=== PATIENT | female | born 1960 | race Two or more races ===

== ENCOUNTER 2017-01-14 21:06 | Emergency (ER) | payer OTHER ==
[~2017-01-14] VITALS: Ht 147.3 cm; Wt 63.5 kg
[2017-01-14] MEDS ORDERED: LISINOPRIL10 MG ORAL (21:15)
[2017-01-14] MEDS ORDERED: ATORVASTATIN CA80 MG ORAL (21:15)
[2017-01-14] MEDS ORDERED: levETIRAcetam 500mg vial IV ONE (21:40)
[2017-01-14] MEDS ORDERED: levETIRAcetam 500 MG in D5W 110 ML IVPB ONE (21:45)
[2017-01-14 22:02] VITALS: BP 142/60
[2017-01-14 22:18] LABS: APPEARANCE,URINE CLEAR; BASOPHILS % (AUTO) 0.8 % (0.0-2.0); EOSINOPHILS % (AUTO) 3.1 % (0.0-3.0); KETONES,URINE NEGATIVE (NEGATIVE); LEUKOCYTE ESTERASE ,URINE 2+ (NEGATIVE); LYMPHOCYTES % (AUTO) 20.1 % (20.0-45.0); MEAN CORPUSCULAR VOLUME 91 FL (80-99); MEAN PLATELET VOLUME 5.5 FL (6.5-10.1); MONOCYTES % (AUTO) 4.4 % (1.0-10.0); NEUTROPHILS % (AUTO) 71.5 % (45.0-75.0); NITRITE,URINE NEGATIVE (NEGATIVE); PH,URINE 5 (4.5-8.0); PLATELET COUNT 333 K/UL (150-450); PROTEIN,URINE 2+ (NEGATIVE); RED BLOOD COUNT 3.94 M/UL (4.20-5.40); RED CELL DISTRIBUTION WIDTH 11.6 % (11.6-14.8); UROBILINOGEN,URINE NORMAL MG/DL (0.0-1.0); WHITE BLOOD COUNT 14.3 K/UL (4.8-10.8)
[2017-01-14 22:23] LABS: TROPONIN I < 0.30 ng/mL (<=0.30)
[2017-01-14 22:24] LABS: RBC,URINE 0-2 /HPF (0 - 2)
[2017-01-14 22:25] LABS: BACTERIA,URINE FEW /HPF; SQUAMOUS EPITHELIAL CELL,UR FEW /LPF (NONE/OCC)
[2017-01-14 22:26] LABS: ACETAMINOPHEN < 10 ug/mL (10-30); ALANINE AMINOTRANSFERASE 13 U/L (3-33); ALBUMIN/GLOBULIN RATIO 1.3 (1.0-2.7); ALCOHOL < 10 mg/dL; ANION GAP 20 (5-15); ASPARTATE AMINO TRANSFERASE 19 U/L (5-40); CALCIUM 9.5 mg/dL (8.6-10.2); CARBON DIOXIDE 25 mEQ/L (20-30); CHLORIDE 96 mEQ/L (98-107); CREATININE 0.9 mg/dL (0.5-0.9); GLOMERULAR FILTRATION RATE > 60 mL/min (>60); HEMOLYSIS 3; POTASSIUM 3.4 mEQ/L (3.4-4.9); SODIUM 141 mEQ/L (135-145); TOTAL PROTEIN 7.9 g/dL (6.6-8.7)
[2017-01-14 23:40] VITALS: BP 141/61
[2017-01-14 23:45] VITALS: BP 141/61
--- NOTE | 2017-01-15 04:47 | Emergency Room Report ---
History of Present Illness General Chief Complaint: Seizure Source: Patient, Family Member, Medical Record Present Illness HPI 56-year-old female presents to ED status post seizure. Daughter at bedside states that patient is seizure in bed. Witnessed by daughter. Lasted for approximately 1 minute and resolved. No falling or head injury. On arrival patient is post ictal, confused. Patient has history of seizures that Keppra. Daughter states that patient is not always compliant with her medication. Patient had a subarachnoid hemorrhage and has had seizures since. No fevers or chills. No chest pain or shortness of breath. No other aggravating factors. No other associated symptoms Allergies: Coded Allergies: No Known Allergies (Unverified , 01/14/17) Patient History Past Medical History: seizures Past Surgical History: other - SAH Pertinent Family History: none Social History: Denies: alcohol use, drug use, smoking Last Menstrual Period: n/a Now: No Immunizations: UTD Reviewed Nursing Documentation: PMH: Agreed, PSxH: Agreed Nursing Documentation-PMH Past Medical History: No History, Except For Hx Neurological Problems: Yes - Subarachnoid hemorrhage Hx Seizures: Yes Review of Systems All Other Systems: negative except mentioned in HPI Physical Exam Vital Signs Date Time Temp Pulse Resp B/P Pulse Ox O2 Delivery O2 Flow Rate FiO2 01/14/17 21:02 98 20 148/70 88 Room Air 01/14/17 22:02 98.6 Sp02 EP Interpretation: reviewed, normal General Appearance: no apparent distress, alert, GCS 15, non-toxic Head: normocephalic, atraumatic Eyes: bilateral eye PERRL, bilateral eye normal inspection ENT: hearing grossly normal, normal pharynx, no angioedema, normal voice Neck: full range of motion, supple/symm/no masses Respiratory: chest non-tender, lungs clear, normal breath sounds, speaking full sentences Cardiovascular #1: regular rate, rhythm, no edema Cardiovascular #2: 2+ carotid (R), 2+ carotid (L), 2+ radial (R), 2+ radial (L) , 2+ dorsalis pedis (R), 2+ dorsalis pedis (L) Gastrointestinal: normal bowel sounds, non tender, soft, non-distended, no guarding, no rebound Rectal: deferred Genitourinary: normal inspection, no CVA tenderness Musculoskeletal: back normal, gait/station normal, normal range of motion, non- tender Neurologic: alert, oriented x3, responsive, motor strength/tone normal, sensory intact, speech normal Psychiatric: judgement/insight normal, memory normal, mood/affect normal, no suicidal/homicidal ideation Reflexes: 3+ bicep (R), 3+ bicep (L), 3+ tricep (R), 3+ tricep (L), 3+ knee (R) , 3+ knee (L) Skin: normal color, no rash, warm/dry, well hydrated Lymphatic: no adenopathy Medical Decision Making Diagnostic Impression: Primary Impression: Seizure disorder ER Course Hospital Course 56-year-old F presents to ED status post seizure. Differential diagnosis includes- breakthrough seizure, alcohol abuse, noncompliance with medication Clinical course Patient placed on stretcher. Initial history and physical I ordered labs, IV fluids, Keppra Labs-electrolytes okay, no leukocytosis, hemoglobin/hematocrit stable. Tox negative EKG-normal sinus rhythm, LVH Patient allowed to rest is now awake alert oriented x3. ambulating without difficulty. Family is at bedside and can take patient home. Encouraged importance of medication compliance Diagnosis - seizure disorder stable and discharged to home. Followup with PMD. Return to ED if symptoms recur or worsen Labs Test 01/14/17 21:50 White Blood Count 14.3 K/UL (4.8-10.8) Red Blood Count 3.94 M/UL (4.20-5.40) Hemoglobin 12.6 G/DL (12.0-16.0) Hematocrit 36.0 % (37.0-47.0) Mean Corpuscular Volume 91 FL (80-99) Mean Corpuscular Hemoglobin 32.0 PG (27.0-31.0) Mean Corpuscular Hemoglobin Concent 35.0 G/DL (32.0-36.0) Red Cell Distribution Width 11.6 % (11.6-14.8) Platelet Count 333 K/UL (150-450) Mean Platelet Volume 5.5 FL (6.5-10.1) Neutrophils (%) (Auto) 71.5 % (45.0-75.0) Lymphocytes (%) (Auto) 20.1 % (20.0-45.0) Monocytes (%) (Auto) 4.4 % (1.0-10.0) Eosinophils (%) (Auto) 3.1 % (0.0-3.0) Basophils (%) (Auto) 0.8 % (0.0-2.0) Urine Color Pale yellow Urine Appearance Clear Urine pH 5 (4.5-8.0) Urine Specific [place] 1.020 (1.005-1.035) Urine Protein 2+ (NEGATIVE) Urine Glucose (UA) Negative (NEGATIVE) Urine Ketones Negative (NEGATIVE) Urine Occult Blood Negative (NEGATIVE) Urine Nitrite Negative (NEGATIVE) Urine Bilirubin Negative (NEGATIVE) Urine Urobilinogen Normal MG/DL (0.0-1.0) Urine Leukocyte Esterase 2+ (NEGATIVE) Urine RBC 0-2 /HPF (0 - 2) Urine WBC 2-4 /HPF (0 - 2) Urine Squamous Epithelial Cells Few /LPF (NONE/OCC) Urine Bacteria Few /HPF (NONE) Sodium Level 141 mEQ/L (135-145) Potassium Level 3.4 mEQ/L (3.4-4.9) Chloride Level 96 mEQ/L (98-107) Carbon Dioxide Level 25 mEQ/L (20-30) Anion Gap 20 (5-15) Blood Urea Nitrogen 25 mg/dL (7-23) Creatinine 0.9 mg/dL (0.5-0.9) Estimat Glomerular Filtration Rate > 60 mL/min (>60) Glucose Level 162 mg/dL (74-106) Calcium Level 9.5 mg/dL (8.6-10.2) Total Bilirubin < 0.2 mg/dL (0.0-1.2) Aspartate Amino Transf (AST/SGOT) 19 U/L (5-40) Alanine Aminotransferase (ALT/SGPT) 13 U/L (3-33) Alkaline Phosphatase 135 U/L (35-104) Troponin I < 0.30 ng/mL (<=0.30) Total Protein 7.9 g/dL (6.6-8.7) Albumin 4.5 g/dL (3.5-5.2) Globulin 3.4 g/dL Albumin/Globulin Ratio 1.3 (1.0-2.7) Salicylates Level < 1 mg/dL (10-30) Acetaminophen Level < 10 ug/mL (10-30) Serum Alcohol < 10 mg/dL EKG Diagnostic Results Rate: normal Rhythm: NSR, other - LVH ST Segments: no acute changes ASA given to the pt in ED: No Rhythm Strip Diag. Results EP Interpretation: yes Rhythm: NSR, no PVC's, no ectopy Last Vital Signs Date Time Temp Pulse Resp B/P Pulse Ox O2 Delivery O2 Flow Rate FiO2 01/14/17 23:45 98.6 94 19 141/61 97 Room Air Status: improved Disposition: HOME, SELF-CARE Condition: Stable Referrals: [facility],REFERRING (PCP) Patient Instructions: Seizure, Adult IVONNE BLOCK M.D. January 15, 2017 04:47
--- NOTE | 2017-01-15 18:34 | Cardiology Report ---
APPROVED REPORT EKG Measurement Heart [id number] Normal sinus rhythm Possible Left atrial enlargement Left ventricular hypertrophy with repolarization abnormality Prolonged QT Abnormal ECG
== END 2017-01-14 23:45 | disposition home or self-care (01) ==
LOC: EDBD 21:06 → EMR 21:24
DX: G40.909 Epilepsy, unspecified, not intractable, without status epilepticus (principal)
CPT/HCPCS: 36415; 80053; 80329; 81003; 82962; 84484; 85025; 93005; 96374; 96375; 99284; J1953

== ENCOUNTER 2017-09-26 19:12 | Inpatient (IN) | payer OTHER ==
[~2017-09-26] VITALS: Ht 152.4 cm; Wt 62.6 kg
[~2017-09-26 19:12] MED LIST: ATORVASTATIN CA80 MG ORAL; LISINOPRIL10 MG ORAL
[2017-09-26 19:18] VITALS: BP 188/74
[2017-09-26] MEDS ORDERED: levETIRAcetam 500mg/NS100ml 100 ML IVPB ONE (19:45)
[2017-09-26] MEDS ORDERED: Albuterol ud Inhalation HHN ONE (19:45)
[2017-09-26 19:48] LABS: BASOPHILS % (AUTO) 0.6 % (0.0-2.0); EOSINOPHILS % (AUTO) 2.1 % (0.0-3.0); HEMATOCRIT 42.4 % (37.0-47.0); HEMOGLOBIN 13.8 G/DL (12.0-16.0); LYMPHOCYTES % (AUTO) 44.5 % (20.0-45.0); MEAN CORPUSCULAR VOLUME 95 FL (80-99); MONOCYTES % (AUTO) 8.6 % (1.0-10.0); NEUTROPHILS % (AUTO) 44.2 % (45.0-75.0); PLATELET COUNT 397 K/UL (150-450); RED BLOOD COUNT 4.47 M/UL (4.20-5.40); RED CELL DISTRIBUTION WIDTH 11.6 % (11.6-14.8); WHITE BLOOD COUNT 21.7 K/UL (4.8-10.8)
[2017-09-26] MEDS ORDERED: LORazepam Inj 2mg/ml 1ml ONE ×2 (19:56→20:46)
[2017-09-26 20:02] LABS: ANION GAP 22 mmol/L (5-15); BLOOD UREA NITROGEN 27 mg/dL (7-18); CALCIUM 9.7 MG/DL (8.5-10.1); CARBON DIOXIDE 18 MMOL/L (21-32); CHLORIDE 105 MMOL/L (98-107); CREATININE 1.6 MG/DL (0.55-1.30); SODIUM 145 MMOL/L (136-145)
[2017-09-26 20:07] LABS: ALANINE AMINOTRANSFERASE 30 U/L (12-78); ALBUMIN 3.8 G/DL (3.4-5.0); ALBUMIN/GLOBULIN RATIO 0.8 (1.0-2.7); ALKALINE PHOSPHATASE 128 U/L (46-116); ASPARTATE AMINO TRANSFERASE 31 U/L (15-37); BILIRUBIN,TOTAL 0.2 MG/DL (0.2-1.0); CREATINE KINASE 68 U/L (26-308)
[2017-09-26] MEDS ORDERED: LORazepam Inj 2mg/ml 1ml IV ONE ×2 (20:30→20:45)
[2017-09-26] MEDS ORDERED: KEPPRA750 MG ORAL ×2 (20:54)
[2017-09-26 20:58] VITALS: BP 140/76
[2017-09-26 21:55] VITALS: BP 112/59
[2017-09-26] MEDS ORDERED: Albuterol/Ipratropium 3ml neb HHN PRN (22:45)
[2017-09-26] MEDS ORDERED: Nitroglycerin Subl 0.4mg tab SL PRN (22:45)
[2017-09-26] MEDS ORDERED: Morphine Sulfate 4mg/ml Inj IVP PRN (22:45)
[2017-09-26 23:03] VITALS: BP 118/56
--- NOTE | 2017-09-26 23:24 | Emergency Room Report ---
History of Present Illness General Chief Complaint: Dyspnea/Respdistress Source: Family Member, Medical Record, EMS Present Illness HPI This patient is brought in by EMS for altered mental status. Apparently the patient has a history of a seizure disorder and they were called by the patient' s daughter that she was found on the floor altered. There is no other history available. The patient was unable to give history secondary to her mental status. Allergies: Coded Allergies: No Known Allergies (Unverified , 01/14/17) Patient History Past Medical History: see triage record, DM, HTN, GERD, seizures Past Surgical History: unable to obtain Pertinent Family History: unable to obtain Social History: Denies: smoking, alcohol use, drug use Reviewed Nursing Documentation: PMH: Agreed, PSxH: Agreed Nursing Documentation-PMH Past Medical History: No History, Except For Hx Hypertension: Yes Hx Diabetes: Yes Hx Neurological Problems: Yes - Subarachnoid hemorrhage Hx Seizures: Yes Review of Systems All Other Systems: negative except mentioned in HPI Physical Exam Vital Signs Date Time Temp Pulse Resp B/P (MAP) Pulse Ox O2 Delivery O2 Flow Rate FiO2 09/26/17 19:03 98.1 113 20 188/74 99 Non-Rebreather 15.0 09/26/17 21:06 30 Sp02 EP Interpretation: reviewed, abnormal General Appearance: lethargic Head: normocephalic, atraumatic Eyes: bilateral eye normal inspection, bilateral eye PERRL ENT: normal pharynx, no angioedema Neck: full range of motion, supple/symm/no masses Respiratory: rales, rhonchi Cardiovascular #1: no edema, tachycardia Gastrointestinal: soft, non-distended, no guarding, no rebound Rectal: deferred Musculoskeletal: normal inspection, normal range of motion Neurologic: other - Localizes to pain, non-focal Skin: normal color, no rash, warm/dry, well hydrated Procedures Intubation Intubation : Consent: Emergent Intubation Method: orotracheal Tube Size (cm): 7.0 Medications: Etomidate, Succinylcholine Breath Sounds after Intubation: right greater than left Intubation Complications: no complications Post Intubation Xray: Yes Progress/Xray Impression: Slightly in R. mainstem bronchus Attempts: One Patient Tolerated: Well Complications: None Medical Decision Making Diagnostic Impression: Primary Impression: Seizure disorder Additional Impressions: Pulmonary edema Elevated troponin Renal failure Respiratory failure ER Course This patient presented with uncontrolled seizures. She is also hypoxemic and minimally responsive. Chest x-ray showed diffuse pulmonary edema. The patient then continued to have recurrent seizures and I was concerned with her mental status and pulmonary edema that she would lose her airway. Therefore, I felt that I should intubate this patient to get control of her airway. She underwent rapid sequence intubation without complication or incident. The initial chest x-ray showed the endotracheal tube slightly in the right mainstem bronchus. The ET tube was pulled back 2 cm. Patient also had an elevated troponin. She also has an elevated creatinine that I am unsure of the chronicity of. Possibly this patient had an and STEMI and pulmonary edema and then developed a seizure. I am unsure of the sequence of conditions. Regardless, the patient was given antiseizure medications, intubated and admitted to the ICU. This patient is critically ill. This patient required complex medical decision- making, aggressive intervention, extensive laboratory workup and monitoring. Critical care time: 40 minutes. Laboratory Tests Test 09/26/17 19:20 White Blood Count 21.7 K/UL (4.8-10.8) H Red Blood Count 4.47 M/UL (4.20-5.40) Hemoglobin 13.8 G/DL (12.0-16.0) Hematocrit 42.4 % (37.0-47.0) Mean Corpuscular Volume 95 FL (80-99) Mean Corpuscular Hemoglobin 30.8 PG (27.0-31.0) Mean Corpuscular Hemoglobin Concent 32.5 G/DL (32.0-36.0) Red Cell Distribution Width 11.6 % (11.6-14.8) Platelet Count 397 K/UL (150-450) Mean Platelet Volume 5.2 FL (6.5-10.1) L Neutrophils (%) (Auto) 44.2 % (45.0-75.0) L Lymphocytes (%) (Auto) 44.5 % (20.0-45.0) Monocytes (%) (Auto) 8.6 % (1.0-10.0) Eosinophils (%) (Auto) 2.1 % (0.0-3.0) Basophils (%) (Auto) 0.6 % (0.0-2.0) Sodium Level 145 MMOL/L (136-145) Potassium Level 4.0 MMOL/L (3.5-5.1) Chloride Level 105 MMOL/L (98-107) Carbon Dioxide Level 18 MMOL/L (21-32) L Anion Gap 22 mmol/L (5-15) H Blood Urea Nitrogen 27 mg/dL (7-18) H Creatinine 1.6 MG/DL (0.55-1.30) H Estimate Glomerular Filtration Rate 33.2 mL/min (>60) Glucose Level 244 MG/DL (74-106) H Calcium Level 9.7 MG/DL (8.5-10.1) Total Bilirubin 0.2 MG/DL (0.2-1.0) Aspartate Amino Transferase (AST) 31 U/L (15-37) Alanine Aminotransferase (ALT) 30 U/L (12-78) Alkaline Phosphatase 128 U/L (46-116) H Total Creatine Kinase 68 U/L (26-308) Troponin I 0.169 ng/mL (0.000-0.056) Total Protein 8.6 G/DL (6.4-8.2) H Albumin 3.8 G/DL (3.4-5.0) Globulin 4.8 g/dL Albumin/Globulin Ratio 0.8 (1.0-2.7) L Serum Alcohol < 3 mg/dL EKG Diagnostic Results Rate: tachycardiac Rhythm: other - S.tachycardia ST Segments: no acute changes Rhythm Strip Diag. Results EP Interpretation: yes Rate: 110's Rhythm: no PVC's, no ectopy, other Other Impression S.tachycardia Chest X-Ray Diagnostic Results Chest X-Ray Diagnostic Results : Chest X-Ray Ordered: Yes # of Views/Limited/Complete: 1 View Indication: Shortness of Breath EP Interpretation: Yes Interpretation: no pneumothorax, other Impression: Other - Diffuse patchy opacities c/w pulmonary edema. Last Vital Signs Date Time Temp Pulse Resp B/P (MAP) Pulse Ox O2 Delivery O2 Flow Rate FiO2 09/26/17 23:03 71 14 118/56 100 Mechanical Ventilator 09/26/17 21:06 30 09/26/17 19:18 15.0 09/26/17 19:18 98.1 Disposition: ADMITTED INPATIENT Condition: Critical Referrals: [facility],REFERRING (PCP) DEONTE RAMOS D.O. Sep 26, 2017 23:24
[2017-09-27] VITALS (24 sets, daily range): BP systolic 85–136; BP diastolic 34–67
[2017-09-27 02:32] LABS: APPEARANCE,URINE CLEAR; COLOR,URINE YELLOW
[2017-09-27 02:33] LABS: BILIRUBIN, URINE NEGATIVE (NEGATIVE); GLUCOSE, URINE (UA) NEGATIVE (NEGATIVE); KETONES,URINE NEGATIVE (NEGATIVE); LEUKOCYTE ESTERASE ,URINE NEGATIVE (NEGATIVE); NITRITE,URINE NEGATIVE (NEGATIVE); PH,URINE 5 (4.5-8.0); PROTEIN,URINE NEGATIVE (NEGATIVE); UROBILINOGEN,URINE NORMAL MG/DL (0.0-1.0)
[2017-09-27 02:35] LABS: APPEARANCE,URINE CLEAR; COLOR,URINE YELLOW; PH,URINE 5 (4.5-8.0)
[2017-09-27 02:36] LABS: BILIRUBIN, URINE NEGATIVE (NEGATIVE); GLUCOSE, URINE (UA) NEGATIVE (NEGATIVE); KETONES,URINE NEGATIVE (NEGATIVE); LEUKOCYTE ESTERASE ,URINE NEGATIVE (NEGATIVE); NITRITE,URINE NEGATIVE (NEGATIVE); PROTEIN,URINE NEGATIVE (NEGATIVE); UROBILINOGEN,URINE NORMAL MG/DL (0.0-1.0)
[2017-09-27] MEDS: D5 1/2NS 1,000 ML IV SCH ×2 (03:42→12:01)
[2017-09-27 07:06] LABS: CREATINE KINASE 93 U/L (26-308)
[2017-09-27 07:09] LABS: ALANINE AMINOTRANSFERASE 28 U/L (12-78); ALBUMIN 2.9 G/DL (3.4-5.0); ALKALINE PHOSPHATASE 79 U/L (46-116); ASPARTATE AMINO TRANSFERASE 31 U/L (15-37); BILIRUBIN,DIRECT < 0.1 MG/DL (0.0-0.3); BILIRUBIN,TOTAL 0.5 MG/DL (0.2-1.0); LACTATE DEHYDROGENASE 264 U/L (81-234); PHOSPHORUS 2.2 MG/DL (2.5-4.9)
[2017-09-27] MEDS: Heparin 5000 units/ml inj SUBQ SCH ×2 (09:00→20:49)
--- NOTE | 2017-09-27 10:39 | Neurology Progress Note ---
Objective Physical Exam Last Vital Signs Date Time Temp Pulse Resp B/P (MAP) Pulse Ox O2 Delivery O2 Flow Rate FiO2 09/27/17 10:00 70 18 136/51 100 Mechanical Ventilator 30 09/27/17 08:00 98.5 09/27/17 03:00 Laboratory Tests Test 09/26/17 19:20 09/26/17 21:21 09/27/17 06:15 White Blood Count 21.7 K/UL (4.8-10.8) H Red Blood Count 4.47 M/UL (4.20-5.40) Hemoglobin 13.8 G/DL (12.0-16.0) Hematocrit 42.4 % (37.0-47.0) Mean Corpuscular Volume 95 FL (80-99) Mean Corpuscular Hemoglobin 30.8 PG (27.0-31.0) Mean Corpuscular Hemoglobin Concent 32.5 G/DL (32.0-36.0) Red Cell Distribution Width 11.6 % (11.6-14.8) Platelet Count 397 K/UL (150-450) Mean Platelet Volume 5.2 FL (6.5-10.1) L Neutrophils (%) (Auto) 44.2 % (45.0-75.0) L Lymphocytes (%) (Auto) 44.5 % (20.0-45.0) Monocytes (%) (Auto) 8.6 % (1.0-10.0) Eosinophils (%) (Auto) 2.1 % (0.0-3.0) Basophils (%) (Auto) 0.6 % (0.0-2.0) Sodium Level 145 MMOL/L (136-145) Potassium Level 4.0 MMOL/L (3.5-5.1) Chloride Level 105 MMOL/L (98-107) Carbon Dioxide Level 18 MMOL/L (21-32) L Anion Gap 22 mmol/L (5-15) H Blood Urea Nitrogen 27 mg/dL (7-18) H Creatinine 1.6 MG/DL (0.55-1.30) H Estimat Glomerular Filtration Rate 33.2 mL/min (>60) Glucose Level 244 MG/DL (74-106) H Calcium Level 9.7 MG/DL (8.5-10.1) Total Bilirubin 0.2 MG/DL (0.2-1.0) 0.5 MG/DL (0.2-1.0) Aspartate Amino Transf (AST/SGOT) 31 U/L (15-37) 31 U/L (15-37) Alanine Aminotransferase (ALT/SGPT) 30 U/L (12-78) 28 U/L (12-78) Alkaline Phosphatase 128 U/L (46-116) H 79 U/L (46-116) Total Creatine Kinase 68 U/L (26-308) 93 U/L (26-308) Troponin I 0.169 ng/mL (0.000-0.056) Total Protein 8.6 G/DL (6.4-8.2) H 6.3 G/DL (6.4-8.2) L Albumin 3.8 G/DL (3.4-5.0) 2.9 G/DL (3.4-5.0) L Globulin 4.8 g/dL Albumin/Globulin Ratio 0.8 (1.0-2.7) L Serum Alcohol < 3 mg/dL Urine Color Yellow Urine Appearance Clear Urine pH 5 (4.5-8.0) Urine Specific [place] 1.020 (1.005-1.035) Urine Protein Negative (NEGATIVE) Urine Glucose (UA) Negative (NEGATIVE) Urine Ketones Negative (NEGATIVE) Urine Occult Blood Negative (NEGATIVE) Urine Nitrite Negative (NEGATIVE) Urine Bilirubin Negative (NEGATIVE) Urine Urobilinogen Normal MG/DL (0.0-1.0) Urine Leukocyte Esterase Negative (NEGATIVE) Urine RBC 0-2 /HPF (0 - 2) Urine WBC 0-2 /HPF (0 - 2) Urine Squamous Epithelial Cells Few /LPF (NONE/OCC) Urine Bacteria Few /HPF (NONE) Urine Eosinophils None seen Urine Random Sodium 20 MEQ/L (20-110) Urine Potassium Timed 130 mmol/L (12-62) H Prothrombin Time 10.0 SEC (9.30-11.50) Prothromb Time International Ratio 1.0 (0.9-1.1) Activated Partial Thromboplast Time 26 SEC (23-33) Uric Acid 6.0 MG/DL (2.6-7.2) Phosphorus Level 2.2 MG/DL (2.5-4.9) L Direct Bilirubin < 0.1 MG/DL (0.0-0.3) Lactate Dehydrogenase 264 U/L (81-234) H Triglycerides Level 172 MG/DL (30-150) H Impression/Recommendations Recommendations #[id number] RON HOLLIS Sep 27, 2017 10:39
[2017-09-27 10:54] LABS: BASOPHILS % (AUTO) 0.5 % (0.0-2.0); HEMATOCRIT 30.8 % (37.0-47.0); HEMOGLOBIN 10.3 G/DL (12.0-16.0); LYMPHOCYTES % (AUTO) 23.6 % (20.0-45.0); MEAN CORPUSCULAR VOLUME 92 FL (80-99); MONOCYTES % (AUTO) 8.4 % (1.0-10.0); NEUTROPHILS % (AUTO) 66.6 % (45.0-75.0); PLATELET COUNT 278 K/UL (150-450); RED BLOOD COUNT 3.36 M/UL (4.20-5.40); RED CELL DISTRIBUTION WIDTH 11.3 % (11.6-14.8); WHITE BLOOD COUNT 10.5 K/UL (4.8-10.8)
[2017-09-27] MEDS ORDERED: levETIRAcetam 1,000mg/NS100ml 100 ML IVPB SCH (11:30)
[2017-09-27] MEDS: NS IV SCH ×2 (11:45→20:46)
[2017-09-27] MEDS: LEVETIRACETAM IV SCH ×2 (11:45→20:46)
--- NOTE | 2017-09-27 12:04 | Pulmonolgy Critical Care Note ---
Critical Care - Asmt/Plan Problems: (1) Seizure disorder (2) Respiratory failure (3) Renal failure Respiratory: monitor respiratory rate, adjust FIO2, CXR Cardiac: continue to monitor HR/BP Infectious Disease: check cultures Gastrointestinal: start feedings Endocrine: monitor blood sugar Hematologic: monitor H/H Neurologic: PRN Ativan, PRN Morphine Prophylaxis: Heparin Disposition: keep in ICU Discussed with: nurses, consultants, high risk case managermanager program management - Objective Last 24 Hour Vital Signs Date Time Temp Pulse Resp B/P (MAP) Pulse Ox O2 Delivery O2 Flow Rate FiO2 09/27/17 11:00 72 18 109/45 100 Mechanical Ventilator 30 09/27/17 10:37 63 18 30 09/27/17 10:00 70 18 136/51 100 Mechanical Ventilator 30 09/27/17 09:00 57 16 110/41 100 Mechanical Ventilator 30 09/27/17 08:51 60 16 30 09/27/17 08:00 98.5 66 18 116/46 100 Mechanical Ventilator 30 09/27/17 08:00 70 09/27/17 08:00 30 09/27/17 07:00 59 16 112/41 100 Mechanical Ventilator 30 09/27/17 06:55 55 16 30 09/27/17 06:00 65 16 101/67 100 Mechanical Ventilator 30 09/27/17 05:20 62 16 30 09/27/17 05:00 66 16 85/34 100 Mechanical Ventilator 30 09/27/17 04:00 30 09/27/17 04:00 63 09/27/17 04:00 59 16 89/36 100 Mechanical Ventilator 30 09/27/17 03:30 110 16 30 09/27/17 03:00 97.6 60 20 116/42 99 Mechanical Ventilator 30 09/27/17 02:50 98.1 61 16 96/45 100 Mechanical Ventilator 15.0 30 18 02:37 61 16 96/45 100 Mechanical Ventilator 09/27/17 01:29 106 16 30 09/27/17 01:29 16 18 01:20 63 16 102/45 100 Mechanical Ventilator 18 01:12 15.0 30 09/27/17 00:16 66 14 102/49 100 Mechanical Ventilator 09/26/17 23:30 108 14 30 09/26/17 23:03 71 14 118/56 100 Mechanical Ventilator 09/26/17 22:03 16 09/26/17 21:55 89 16 112/59 99 Mechanical Ventilator 09/26/17 21:06 103 19 30 09/26/17 20:58 100 24 140/76 97 Mechanical Ventilator 09/26/17 19:18 113 20 Non-Rebreather 15.0 09/26/17 19:18 98.1 113 20 188/74 99 Non-Rebreather 15.0 09/26/17 19:03 98.1 113 20 188/74 99 Non-Rebreather 15.0 Status: awake Condition: critical HEENT: atraumatic Lungs: clear Heart: HR/BP stable, HR/BP unstable Abdomen: soft, non-tender Extremities: no C/C/E, edema Accucheck: 109 Critical Care - Subjective ROS Limited/Unobtainable: Yes ICU Day: 1 Intubation Day: 1 Condition: critical EKG Rhythm: Sinus Rhythm FI02: 30 Vent Support Breath Rate: 16 Vent Support Mode: AC Vent Tidal Volume: 600 Sputum Amount: Small PEEP: 5.0 PIP: 42 Fluids: d5 08/27 NS I&O: Intake and Output 09/26/17 09/27/17 19:00 07:00 Intake Total 244 ml Output Total 235 ml Balance 9 ml Intake Oral 0 ml IV Total 244 ml Output Urine Total 235 ml # Voids 1 CXR: increased interstitial marking ET-Tube: 7.0 ET Position: 21 Labs: Laboratory Tests Test 09/26/17 19:20 09/26/17 21:21 09/27/17 06:15 09/27/17 09:50 White Blood Count 21.7 K/UL (4.8-10.8) H 10.5 K/UL (4.8-10.8) # Red Blood Count 4.47 M/UL (4.20-5.40) 3.36 M/UL (4.20-5.40) L Hemoglobin 13.8 G/DL (12.0-16.0) 10.3 G/DL (12.0-16.0) L Hematocrit 42.4 % (37.0-47.0) 30.8 % (37.0-47.0) L Mean Corpuscular Volume 95 FL (80-99) 92 FL (80-99) Mean Corpuscular Hemoglobin 30.8 PG (27.0-31.0) 30.6 PG (27.0-31.0) Mean Corpuscular Hemoglobin Concent 32.5 G/DL (32.0-36.0) 33.4 G/DL (32.0-36.0) Red Cell Distribution Width 11.6 % (11.6-14.8) 11.3 % (11.6-14.8) L Platelet Count 397 K/UL (150-450) 278 K/UL (150-450) Mean Platelet Volume 5.2 FL (6.5-10.1) L 5.3 FL (6.5-10.1) L Neutrophils (%) (Auto) 44.2 % (45.0-75.0) L 66.6 % (45.0-75.0) Lymphocytes (%) (Auto) 44.5 % (20.0-45.0) 23.6 % (20.0-45.0) Monocytes (%) (Auto) 8.6 % (1.0-10.0) 8.4 % (1.0-10.0) Eosinophils (%) (Auto) 2.1 % (0.0-3.0) 1.0 % (0.0-3.0) Basophils (%) (Auto) 0.6 % (0.0-2.0) 0.5 % (0.0-2.0) Sodium Level 145 MMOL/L (136-145) Potassium Level 4.0 MMOL/L (3.5-5.1) Chloride Level 105 MMOL/L (98-107) Carbon Dioxide Level 18 MMOL/L (21-32) L Anion Gap 22 mmol/L (5-15) H Blood Urea Nitrogen 27 mg/dL (7-18) H Creatinine 1.6 MG/DL (0.55-1.30) H Estimat Glomerular Filtration Rate 33.2 mL/min (>60) Glucose Level 244 MG/DL (74-106) H Calcium Level 9.7 MG/DL (8.5-10.1) Total Bilirubin 0.2 MG/DL (0.2-1.0) 0.5 MG/DL (0.2-1.0) Aspartate Amino Transf (AST/SGOT) 31 U/L (15-37) 31 U/L (15-37) Alanine Aminotransferase (ALT/SGPT) 30 U/L (12-78) 28 U/L (12-78) Alkaline Phosphatase 128 U/L (46-116) H 79 U/L (46-116) Total Creatine Kinase 68 U/L (26-308) 93 U/L (26-308) Troponin I 0.169 ng/mL (0.000-0.056) Total Protein 8.6 G/DL (6.4-8.2) H 6.3 G/DL (6.4-8.2) L Albumin 3.8 G/DL (3.4-5.0) 2.9 G/DL (3.4-5.0) L Globulin 4.8 g/dL Albumin/Globulin Ratio 0.8 (1.0-2.7) L Serum Alcohol < 3 mg/dL Urine Color Yellow Urine Appearance Clear Urine pH 5 (4.5-8.0) Urine Specific [place] 1.020 (1.005-1.035) Urine Protein Negative (NEGATIVE) Urine Glucose (UA) Negative (NEGATIVE) Urine Ketones Negative (NEGATIVE) Urine Occult Blood Negative (NEGATIVE) Urine Nitrite Negative (NEGATIVE) Urine Bilirubin Negative (NEGATIVE) Urine Urobilinogen Normal MG/DL (0.0-1.0) Urine Leukocyte Esterase Negative (NEGATIVE) Urine RBC 0-2 /HPF (0 - 2) Urine WBC 0-2 /HPF (0 - 2) Urine Squamous Epithelial Cells Few /LPF (NONE/OCC) Urine Bacteria Few /HPF (NONE) Urine Eosinophils None seen Urine Random Sodium 20 MEQ/L (20-110) Urine Potassium Timed 130 mmol/L (12-62) H Prothrombin Time 10.0 SEC (9.30-11.50) Prothromb Time International Ratio 1.0 (0.9-1.1) Activated Partial Thromboplast Time 26 SEC (23-33) Uric Acid 6.0 MG/DL (2.6-7.2) Phosphorus Level 2.2 MG/DL (2.5-4.9) L Direct Bilirubin < 0.1 MG/DL (0.0-0.3) Lactate Dehydrogenase 264 U/L (81-234) H Triglycerides Level 172 MG/DL (30-150) H FARRUKH VALDEZ Sep 27, 2017 12:04
[2017-09-27] MEDS: NovoLOG Insulin Flexpen SUBQ SCH ×3 (13:29→23:41)
--- NOTE | 2017-09-27 14:16 | Diagnostic Imaging Report ---
Indication: Altered mental status Technique: Contiguous 5 mm thick transaxial imaging of the head obtained in a Siemens Sensation [address] scanner. Soft tissue and bone windows generated. Automatic Exposure Control was utilized. 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 Left frontal encephalomalacia and overlying craniotomy noted. No definite mass effect, edema or acute hemorrhage seen. IMPRESSION: No mass effect acute hemorrhage or edema. 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 Left frontal/temporal encephalomalacia and craniotomy The CT scanner at [facility] is accredited by the [employer] and the scans are performed using dose optimization techniques as appropriate to a performed exam including Automatic Exposure control.
--- NOTE | 2017-09-27 14:17 | Diagnostic Imaging Report ---
Indication: Intubation Comparison: None A single view chest radiograph was obtained. Findings: Endotracheal tube is in the right mainstem bronchus. NG tube is present. The tip is in the stomach. The proximal port is in the esophagus. Tube should be advanced. Interstitial opacities are present nonspecific. The heart is mildly enlarged. Bones are osteopenic. IMPRESSION: Right mainstem intubation. High riding nasogastric tube should be advanced further. Interstitial disease nonspecific. Pneumonitis or CHF not excluded. Follow-up and clinical correlation recommended
[2017-09-27] MEDS: LORazepam Inj 2mg/ml 1ml IV PRN ×2 (15:16→22:03)
[2017-09-27] MEDS ORDERED: NovoLOG Insulin Flexpen SUBQ SCH (16:30)
--- NOTE | 2017-09-27 17:04 | Diagnostic Imaging Report ---
Indication: NG tube position Comparison: None Single view of the abdomen obtained Findings: NG tube is in good position. IMPRESSION: NG tube in good position
--- NOTE | 2017-09-27 18:43 | History & Physical ---
History and Physical History & Physicial Dictated for Int Med-Dr Catherine no. [id number] ANDREW CELESTE Sep 27, 2017 18:43
[2017-09-27] MEDS: Sodium Phosphate 20 MM in NS 275 ML IVPB SCH (20:46)
[2017-09-27] MEDS: Pantoprazole Inj IVP SCH (20:47)
[2017-09-27] MEDS ORDERED: levETIRAcetam 500mg/NS100ml 100 ML IVPB ONE (21:00)
--- NOTE | 2017-09-27 21:15 | Consultation ---
DATE OF CONSULTATION: 09/27/2017 NEUROLOGICAL CONSULTATION REQUESTING PHYSICIAN: Christian Catherine M.D. HISTORY OF PRESENT ILLNESS: The patient is a 57-year-old female, seen in neurological consultation to evaluate the exacerbation of chronic seizure disorder. The patient known to have a ruptured aneurysm with subarachnoid bleed in 2016 required craniotomy following which she developed a chronic seizure disorder. She was maintained on Keppra and yesterday she was reported to found on the ground, currently confused and disoriented following a seizure episode. It is not clear how many seizures she had at that time. She was brought to emergency room where she was observed another two episodes of generalized seizures. The patient was intubated. Her initial laboratory studies included CBC study with WBC of 21.7. Normal coagulation. Normal urinalysis. Toxicology panel negative and chemistry panel with BUN of 22, creatinine 1.6, and blood sugar 244. Troponin 0.169. LDH 264. EKG revealed no PVC. No ectopies. Sinus tachycardia noted. Chest x-ray with diffuse patchy opacities consistent with pulmonary edema. She was described as being hypoxemic and minimally responsive. MEDICATIONS: Her treatment included use of IV Keppra 500 mg, normal saline, propofol sedation, albuterol, subcutaneous heparin, lorazepam 2 mg q.2 h., nitroglycerin and Zofran. ALLERGIES: None reported. SOCIAL HISTORY: Lives at home with her family. FAMILY HISTORY: Unavailable. REVIEW OF SYMPTOMS: Unable to obtain due to the patient's status who is currently intubated. PHYSICAL EXAMINATION: VITAL SIGNS: Her vital signs now are stable, blood pressure 110/41 and temperature degrees. HEENT: Head, normocephalic. There is postoperative post craniotomy defect is noted. Eyes, ears and throat are clear. NECK: Supple. No meningeal signs. MUSCULOSKELETAL: Unremarkable. There are no deformities. Peripheral pulses 1+ symmetric. MENTAL STATUS: The patient is now alert, follows 1-2 step commands. CRANIAL NERVE II: Pupils both responding to light and accommodation. Extraocular movements intact. No nystagmus. CRANIAL NERVE V: Normal corneal responses. CRANIAL NERVE VII: No facial asymmetry. CRANIAL NERVE VIII: Normal hearing. CRANIAL NERVE IX THROUGH XII: Within normal limit. MOTOR EXAMINATION: Able to lift arms and legs against gravity. Deep tendon reflexes 1+ symmetric with downgoing toes both sides. SENSORY EXAMINATION: Withdrawing to pin stimulation. Gait not tested. IMPRESSION: 1. Chronic seizure disorder, breakthrough seizures, rule out noncompliance. 2. Status post ruptured aneurysm with subarachnoid hemorrhage, craniotomy 2016. 3. Hypertension. 4. Hyperlipidemia. 5. Diabetes type 2. RECOMMENDATION: We will check CT of the brain without contrast. We will adjust Keppra up to 1000 mg b.i.d., pending extubation, Ativan 1 mg q.1 h. p.r.n. for breakthrough seizures. We will follow. Thank you for allowing me to see this interesting patient in neurological consultation. Toby Nahun Llanes DR: LATONYA JOB#: [id number] CC:
[2017-09-28] VITALS (23 sets, daily range): BP systolic 106–146; BP diastolic 35–59
[2017-09-28] MEDS: D5 1/2NS 1,000 ML IV SCH ×2 (01:01→14:17)
[2017-09-28] MEDS: Sodium Phosphate 20 MM in NS 275 ML IVPB SCH (01:01)
--- NOTE | 2017-09-28 01:45 | History and Physical Report ---
DATE OF ADMISSION: 09/26/2017 CHIEF COMPLAINT: The patient is a 57-year-old female, who presents with chief complaint of altered mental status. HISTORY OF PRESENT ILLNESS: The patient currently has a history of seizure. Much of the history and physical is obtained from the patient's chart as the patient is intubated in the intensive care unit. The patient presented to [place] emergency room with altered mental status. The patient had been found on the floor by her daughter and had altered mental status. The patient was transferred to [place] emergency room. The patient was found to be in respiratory failure. The patient was emergently intubated. The patient is admitted to the intensive care unit for respiratory failure and altered mental status. REVIEW OF SYSTEMS: Unable to assess, secondary to the patient's mental status. PAST MEDICAL HISTORY: Significant for: 1. Seizure disorder. 2. Hypertension. 3. Diabetes type 2. PAST SURGICAL HISTORY: Unknown. CURRENT MEDICATIONS: 1. Lipitor 80 mg one tablet p.o. at bedtime. 2. Keppra 1500 mg twice daily. 3. Lisinopril 10 mg by mouth. SOCIAL HISTORY: The patient is single, lives with her daughter. The patient denies tobacco or alcohol use. PHYSICAL EXAMINATION: VITAL SIGNS: Temperature 97.6, respirations 20, pulse 60, and blood pressure 116/42. GENERAL: The patient is a well-developed and well-nourished female, who is intubated and sedated. HEENT: Eyes, pupils are equal and responsive to light and accommodation. Extraocular movements are intact. NECK: Supple without lymphadenopathy. CHEST: Few diffuse wheezes bilaterally without crackles. CARDIOVASCULAR: Regular rhythm and rate. S1 and S2 are normal without murmurs, rubs, or gallops. ABDOMEN: Soft, nontender, and nondistended. Positive bowel sounds. No evidence of hepatosplenomegaly. Currently, no rebound or gurding noted. EXTREMITIES: Negative for clubbing, cyanosis, or edema. RECTAL/GENITAL: Refused. NEUROLOGICA: Unable to assess secondary to sedation. LABORATORY STUDIES: WBC 21.7, hemoglobin 13.8, hematocrit 42.4, and platelets 397,000. Sodium 145, potassium 4.0, chloride 105, CO2 18, BUN 27, creatinine 1.6, and glucose 244. Urine toxicology was negative. CT scan of the brain was reported as no acute disease, infarct, or hemorrhage. Chest x-ray was reported as nonspecific interstitial disease. ASSESSMENT: This is a 57-year-old female with: 1. Respiratory failure. 2. Altered mental status. 3. History of seizure disorder. 4. Diabetes type 2. 5. Hypercholesterolemia. TREATMENT: 1. Respiratory failure. A Pulmonary consultation has been obtained with Dr. Richmond Alvarado. The patient is currently intubated and sedated in the intensive care unit. Follow recommendations of Pulmonary. 2. Seizure disorder. Continue Keppra as above. A Neurology consultation has been obtained with Dr. Llanes. 3. Hypertension. The patient is currently hypotensive. 4. Diabetes type 2. Regular insulin sliding scale has been instituted. 5. History of hypercholesterolemia. Richard Esteves M.D. DR: ANJANA JOB#: [id number] CC:
[2017-09-28] MEDS: NovoLOG Insulin Flexpen SUBQ SCH ×5 (05:44→23:35)
[2017-09-28 07:52] LABS: BASOPHILS % (AUTO) 0.6 % (0.0-2.0); EOSINOPHILS % (AUTO) 2.2 % (0.0-3.0); HEMATOCRIT 26.6 % (37.0-47.0); HEMOGLOBIN 9.1 G/DL (12.0-16.0); LYMPHOCYTES % (AUTO) 26.7 % (20.0-45.0); MEAN CORPUSCULAR VOLUME 91 FL (80-99); MONOCYTES % (AUTO) 8.1 % (1.0-10.0); NEUTROPHILS % (AUTO) 62.4 % (45.0-75.0); PLATELET COUNT 290 K/UL (150-450); RED BLOOD COUNT 2.94 M/UL (4.20-5.40); RED CELL DISTRIBUTION WIDTH 11.3 % (11.6-14.8); WHITE BLOOD COUNT 8.7 K/UL (4.8-10.8)
--- NOTE | 2017-09-28 08:06 | Pulmonolgy Critical Care Note ---
Critical Care - Asmt/Plan Assessment/Plan: ASSESSMENT Acute RF requiring intubation acute toxic metabolic encephalopathy~ seizure disorder ATN ( resolved) HTN DM Hx of SAH elevated troponin leukocytosis-resolved e/lyte imbalance : hypo K, hypo Mg PLAN OF CARE ICU vent support, pulmonary toilet daily CXR and ABG this am ABG stable on current settings will start weaning protocol as tolerated wean when stable CT head no acute IC pathology but evidence of aneurysm clipping, craniotomy and encephalomalacia Neuro follows seizure precautions Keppra IV renal US monitor renal parameters, lytes, avoid nephrotoxic serial troponin x 2 cardio eval BS management with SS of insulin replace K and Mg case discussed and evaluated by supervising physician Critical Care - Objective Last 24 Hour Vital Signs Date Time Temp Pulse Resp B/P (MAP) Pulse Ox O2 Delivery O2 Flow Rate FiO2 09/28/17 05:20 61 16 30 09/28/17 05:00 62 16 117/41 100 Mechanical Ventilator 30 09/28/17 04:00 98.8 67 16 115/44 100 Mechanical Ventilator 30 09/28/17 04:00 66 09/28/17 04:00 30 09/28/17 03:05 77 16 30 09/28/17 03:00 84 16 129/54 100 Mechanical Ventilator 30 09/28/17 02:00 67 16 122/48 100 Mechanical Ventilator 30 09/28/17 01:21 63 16 30 09/28/17 01:00 64 16 117/38 100 Mechanical Ventilator 30 09/28/17 00:00 30 09/28/17 00:00 63 09/28/17 00:00 98.9 61 16 113/39 100 Mechanical Ventilator 30 09/27/17 23:00 62 16 114/43 100 Mechanical Ventilator 30 09/27/17 22:59 64 16 30 09/27/17 22:00 68 18 128/45 100 Mechanical Ventilator 30 09/27/17 21:36 67 18 30 09/27/17 21:00 71 18 118/43 100 Mechanical Ventilator 30 09/27/17 20:00 30 09/27/17 20:00 63 09/27/17 20:00 99.0 63 16 116/43 100 Mechanical Ventilator 30 09/27/17 19:02 61 16 30 09/27/17 19:00 65 18 110/41 100 Mechanical Ventilator 30 09/27/17 18:00 63 16 107/39 100 Mechanical Ventilator 30 09/27/17 17:00 68 18 114/41 100 Mechanical Ventilator 30 09/27/17 16:47 67 16 30 09/27/17 16:00 97.8 70 16 112/43 100 Mechanical Ventilator 30 09/27/17 16:00 65 09/27/17 16:00 30 09/27/17 15:00 69 16 126/44 100 Mechanical Ventilator 30 09/27/17 14:33 66 16 30 09/27/17 14:00 67 16 120/46 100 Mechanical Ventilator 30 09/27/17 13:00 66 18 123/50 100 Mechanical Ventilator 30 09/27/17 12:59 69 16 30 09/27/17 12:00 98.8 68 16 112/44 100 Mechanical Ventilator 30 09/27/17 12:00 65 09/27/17 12:00 30 09/27/17 11:00 72 18 109/45 100 Mechanical Ventilator 30 09/27/17 10:37 63 18 30 09/27/17 10:00 70 18 136/51 100 Mechanical Ventilator 30 09/27/17 09:00 57 16 110/41 100 Mechanical Ventilator 30 09/27/17 08:51 60 16 30 Status: sedated Condition: critical HEENT: atraumatic, normocephalic, other - OP with ET in place, intact ; OPT with TF Lungs: clear Heart: HR/BP stable Abdomen: soft, non-tender, active bowel sounds Extremities: no C/C/E Accucheck: 134 Critical Care - Subjective ROS Limited/Unobtainable: Yes Interval Events: remains intubated afebrile, no leuk ABG stable low K and Mg troponin trending up from minimally elevated initially Condition: critical IV Access: peripheral EKG Rhythm: Sinus Rhythm FI02: 30 Vent Support Breath Rate: 16 Vent Support Mode: AC Vent Tidal Volume: 600 Sputum Amount: Small PEEP: 5.0 PIP: 32 Fluids: D51/2 NS at 75 Tube Feeding Amount: 25 I&O: Intake and Output 09/27/17 09/28/17 19:00 07:00 Intake Total 75 ml 1580.3334 ml Output Total 395 ml 320 ml Balance -320 ml 1260.3334 ml Free Water 30 ml IV Total 75 ml 1400.3334 ml Tube Feeding 150 ml Output Urine Total 395 ml 320 ml CXR: Stable to minimally improved bilateral interstitial and airspace parenchymal opacities, over 2 days Improved endotracheal and nasogastric tube positions, ET-Tube: 7.0 ET Position: 21 [facility] ([facility]),Tisha CARDOSO Sep 28, 2017 08:06
[2017-09-28 08:22] LABS: ANION GAP 11 mmol/L (5-15); BLOOD UREA NITROGEN 14 mg/dL (7-18); CALCIUM 7.8 MG/DL (8.5-10.1); CARBON DIOXIDE 21 MMOL/L (21-32); CHLORIDE 110 MMOL/L (98-107); CREATININE 0.8 MG/DL (0.55-1.30); PHOSPHORUS 4.7 MG/DL (2.5-4.9); SODIUM 142 MMOL/L (136-145)
[2017-09-28 08:23] LABS: ALANINE AMINOTRANSFERASE 19 U/L (12-78); ALBUMIN 2.5 G/DL (3.4-5.0); ALBUMIN/GLOBULIN RATIO 0.8 (1.0-2.7); ALKALINE PHOSPHATASE 68 U/L (46-116); ASPARTATE AMINO TRANSFERASE 21 U/L (15-37); BILIRUBIN,TOTAL 0.5 MG/DL (0.2-1.0)
--- NOTE | 2017-09-28 08:36 | Diagnostic Imaging Report ---
Indication: Status post nasogastric tube placement Technique: Supine view of the abdomen Comparison: 7 minutes earlier Findings: Previously demonstrated nasogastric tube has been retracted slightly, tip at the level of the gastric antrum, proximal port at the level of the gastric body. Bowel gas pattern is unremarkable Impression: Still satisfactory position of nasogastric tube, after slight repositioning
--- NOTE | 2017-09-28 08:43 | Diagnostic Imaging Report ---
Indication: Abnormal renal function tests Technique: Grayscale and duplex images of the kidneys, retroperitoneum, and bladder were obtained. Comparison: none Findings: Right kidney measures 9.1 cm in length. Left kidney measures 10 cm in length. Both kidneys demonstrate normal echogenicity. No hydronephrosis. 1 cm parapelvic cyst seen in the left renal sinus. Normal inferior vena cava. Bladder is empty, contains a Mcfarland catheter. Impression: Essentially unremarkable exam Incidental finding small left renal parapelvic cyst.
[2017-09-28] MEDS: Pantoprazole Inj IVP SCH ×2 (09:22→20:51)
[2017-09-28] MEDS: LEVETIRACETAM IV SCH ×2 (09:22→20:50)
[2017-09-28] MEDS: NS IV SCH ×2 (09:22→20:50)
[2017-09-28] MEDS: Heparin 5000 units/ml inj SUBQ SCH ×2 (09:24→20:52)
--- NOTE | 2017-09-28 11:00 | Diagnostic Imaging Report ---
Indication: Shortness of breath Technique: One view of the chest Comparison: September 26, 2017 Findings: Improved position of endotracheal tube, tip now approximately 2 cm above the rain. Improved and now satisfactory position of nasogastric tube. Bilateral interstitial and airspace opacities are stable or perhaps minimally improved. The heart remains borderline enlarged Impression: Stable to minimally improved bilateral interstitial and airspace parenchymal opacities, over 2 days Improved endotracheal and nasogastric tube positions, as described
--- NOTE | 2017-09-28 14:19 | Internal Med Progress Note ---
Subjective Date of Service: Sep 28, 2017 Physician Name Andrew Celeste Attending Physician Christian Catherine MD Current Medications Medications (Trade) Dose Ordered Sig/Xander Route PRN Reason Start Time Stop Time Status Last Admin Dose Admin Acetaminophen (Tylenol) 650 mg Q4H PRN ORAL Fever 09/26/17 22:45 10/26/17 22:44 Albuterol/ Ipratropium (Albuterol/ Ipratropium) 3 ml EVERY 4 HOURS PRN HHN Shortness of Breath 09/26/17 22:45 10/01/17 22:44 Dextrose (Dextrose 50%) STAT PRN IV Hypoglycemia 09/27/17 12:15 10/27/17 12:14 Dextrose/Sodium Chloride 1,000 ml @ 75 mls/hr [id number] IV 09/26/17 22:41 10/26/17 22:40 09/28/17 01:01 Heparin Sodium (Porcine) (Heparin 5000 units/ml) 5,000 units EVERY 12 HOURS SUBQ 09/27/17 09:00 10/27/17 08:59 09/28/17 09:24 Insulin Aspart (NovoLOG) EVERY 6 HOURS SUBQ 09/27/17 13:30 10/27/17 13:29 09/28/17 05:44 Levetiracetam 1500 mg/Sodium Chloride 125 ml @ 245 mls/hr Q12HR IV 09/27/17 12:00 10/27/17 11:59 09/28/17 09:22 Lorazepam (Ativan 2mg/ml 1ml) 2 mg EVERY 2 HOURS PRN IV agitation 09/26/17 22:45 10/03/17 22:44 09/27/17 22:03 Morphine Sulfate (Morphine Sulfate) 4 mg EVERY 4 HOURS PRN IVP Severe Pain (Pain Scale 7-10) 09/26/17 22:45 10/03/17 22:44 Nitroglycerin (Ntg) 0.4 mg Q5M PRN SL Prn Chest Pain 09/26/17 22:45 10/26/17 22:44 Ondansetron HCl (Zofran) 4 mg Q6H PRN IVP Nausea & Vomiting 09/26/17 22:45 10/26/17 22:44 Pantoprazole (Protonix) 40 mg EVERY 12 HOURS IVP 2/2/18 21:00 10/27/17 20:59 09/28/17 09:22 Allergies: Coded Allergies: No Known Allergies (Unverified , 01/14/17) ROS Limited/Unobtainable: Yes Subjective 57 YO F admitted with chief complaint shortness of breath. Now respiratory failure on vent. ICU. Cover for Earle Catherine Objective Last Vital Signs Date Time Temp Pulse Resp B/P (MAP) Pulse Ox O2 Delivery O2 Flow Rate FiO2 09/28/17 12:49 30 09/28/17 12:43 64 16 09/28/17 12:00 126/40 100 Mechanical Ventilator 09/28/17 08:00 97.8 09/27/17 03:00 General Appearance: WD/WN, moderate distress EENT: normal ENT inspection Neck: non-tender, normal alignment, supple Cardiovascular: normal peripheral pulses, normal rate, regular rhythm, no gallop/murmur, no JVD Respiratory/Chest: crackles/rales, rhonchi - bilaterally, expiratory wheezing, other - Mech vent Abdomen: normal bowel sounds, non tender, soft, no organomegaly, no mass Extremities: normal range of motion, non-tender Neurologic: auth specialist II-XII grossly normal Skin: normal pigmentation, warm/dry Laboratory Tests Test 09/28/17 05:45 09/28/17 08:50 White Blood Count 8.7 K/UL (4.8-10.8) Red Blood Count 2.94 M/UL (4.20-5.40) L Hemoglobin 9.1 G/DL (12.0-16.0) L Hematocrit 26.6 % (37.0-47.0) L Mean Corpuscular Volume 91 FL (80-99) Mean Corpuscular Hemoglobin 31.0 PG (27.0-31.0) Mean Corpuscular Hemoglobin Concent 34.3 G/DL (32.0-36.0) Red Cell Distribution Width 11.3 % (11.6-14.8) L Platelet Count 290 K/UL (150-450) Mean Platelet Volume 5.6 FL (6.5-10.1) L Neutrophils (%) (Auto) 62.4 % (45.0-75.0) Lymphocytes (%) (Auto) 26.7 % (20.0-45.0) Monocytes (%) (Auto) 8.1 % (1.0-10.0) Eosinophils (%) (Auto) 2.2 % (0.0-3.0) Basophils (%) (Auto) 0.6 % (0.0-2.0) Sodium Level 142 MMOL/L (136-145) Potassium Level 3.0 MMOL/L (3.5-5.1) L Chloride Level 110 MMOL/L (98-107) H Carbon Dioxide Level 21 MMOL/L (21-32) Anion Gap 11 mmol/L (5-15) Blood Urea Nitrogen 14 mg/dL (7-18) Creatinine 0.8 MG/DL (0.55-1.30) Estimat Glomerular Filtration Rate > 60 mL/min (>60) Glucose Level 250 MG/DL (74-106) H Calcium Level 7.8 MG/DL (8.5-10.1) L Phosphorus Level 4.7 MG/DL (2.5-4.9) Magnesium Level 1.6 MG/DL (1.5-2.4) Total Bilirubin 0.5 MG/DL (0.2-1.0) Aspartate Amino Transf (AST/SGOT) 21 U/L (15-37) Alanine Aminotransferase (ALT/SGPT) 19 U/L (12-78) Alkaline Phosphatase 68 U/L (46-116) Troponin I 0.514 ng/mL (0.000-0.056) Total Protein 5.8 G/DL (6.4-8.2) L Albumin 2.5 G/DL (3.4-5.0) L Globulin 3.3 g/dL Albumin/Globulin Ratio 0.8 (1.0-2.7) L Arterial Blood pH 7.543 (7.350-7.450) Arterial Blood Partial Pressure CO2 25.5 mmHg (35.0-45.0) L Arterial Blood Partial Pressure O2 86.7 mmHg (75.0-100.0) Arterial Blood HCO3 21.5 mmol/L (22.0-26.0) L Arterial Blood Oxygen Saturation 96.5 % (92.0-98.0) Arterial Blood Base Excess -0.9 Roly Test Positive Microbiology Date/Time Source Procedure Growth Status 09/26/17 19:20 Blood Blood Culture - Preliminary NO GROWTH AFTER 24 HOURS Resulted 09/26/17 19:15 Blood Blood Culture - Preliminary NO GROWTH AFTER 24 HOURS Resulted 09/27/17 01:00 Nasal Nares MRSA Culture - Final NO METHICILLIN RESISTANT STAPH AUREUS... Complete 09/27/17 01:00 Rectum VRE Culture - Final NO VANCOMYCIN RESISTANT ENTEROCOCCUS ... Complete Intake and Output 09/27/17 09/28/17 18:59 06:59 Intake Total 75 ml 1655.3334 ml Output Total 390 ml 360 ml Balance -315 ml 1295.3334 ml Free Water 30 ml IV Total 75 ml 1475.3334 ml Tube Feeding 150 ml Output Urine Total 390 ml 360 ml Assessment/Plan Problem List: (1) Altered mental status (2) Diabetes mellitus, type II Assessment & Plan: Continue novolog sliding scale. (3) HTN (hypertension) (4) Hypercholesteremia (5) Respiratory failure Assessment & Plan: Cont vent per pulmonary (6) Seizure disorder Assessment & Plan: See neurology note. Cont keppra Status: not improved ANDREW CELESTE Sep 28, 2017 14:19
[2017-09-28] MEDS ORDERED: Tubing IV Secondary IV ONE (16:32)
[2017-09-28] MEDS ORDERED: D5 1/2NS 1000ml IV ONE (16:32)
--- NOTE | 2017-09-28 19:28 | Consultation ---
Consult Note Consult Note Cardiology for Dr. Rdz Full consult dictated # [id number] PETE JACKSON Sep 28, 2017 19:28
[2017-09-29] VITALS (23 sets, daily range): BP systolic 112–159; BP diastolic 40–70
[2017-09-29] MEDS: D5 1/2NS 1,000 ML IV SCH (04:11)
[2017-09-29 06:11] LABS: BASOPHILS % (AUTO) 0.7 % (0.0-2.0); EOSINOPHILS % (AUTO) 3.3 % (0.0-3.0); HEMATOCRIT 26.1 % (37.0-47.0); HEMOGLOBIN 9.1 G/DL (12.0-16.0); LYMPHOCYTES % (AUTO) 20.6 % (20.0-45.0); MEAN CORPUSCULAR VOLUME 91 FL (80-99); MONOCYTES % (AUTO) 7.5 % (1.0-10.0); PLATELET COUNT 292 K/UL (150-450); RED BLOOD COUNT 2.88 M/UL (4.20-5.40); RED CELL DISTRIBUTION WIDTH 11.1 % (11.6-14.8); WHITE BLOOD COUNT 10.3 K/UL (4.8-10.8)
[2017-09-29] MEDS: NovoLOG Insulin Flexpen SUBQ SCH ×3 (06:17→17:40)
[2017-09-29 06:30] LABS: ANION GAP 8 mmol/L (5-15); BLOOD UREA NITROGEN 10 mg/dL (7-18); CALCIUM 8.2 MG/DL (8.5-10.1); CARBON DIOXIDE 23 MMOL/L (21-32); CHLORIDE 108 MMOL/L (98-107); CREATININE 0.7 MG/DL (0.55-1.30); POTASSIUM 3.5 MMOL/L (3.5-5.1); SODIUM 139 MMOL/L (136-145)
[2017-09-29] MEDS: Pantoprazole Inj IVP SCH ×2 (08:46→21:40)
[2017-09-29] MEDS: Heparin 5000 units/ml inj SUBQ SCH ×2 (08:48→21:43)
[2017-09-29] MEDS: NS IV SCH ×2 (08:55→21:51)
[2017-09-29] MEDS: LEVETIRACETAM IV SCH ×2 (08:55→21:51)
[2017-09-29] MEDS ORDERED: D5 1/2NS 1,000 ML IV SCH (09:00)
--- NOTE | 2017-09-29 10:04 | Pulmonolgy Critical Care Note ---
Critical Care - Asmt/Plan Assessment/Plan: ASSESSMENT Acute RF requiring intubation acute toxic metabolic encephalopathy 2 to uncontrolled seizures chronic seizure disorder with breakthrough seizures ATN ( resolved) HTN DM s/p ruptured aneurysm with SAH and craniotomy in 2016 elevated troponin leukocytosis-resolved e/lyte imbalance : hypo K, hypo Mg anemia hyperlipidemia PLAN OF CARE ICU vent support, pulmonary toilet daily CXR and ABG ABG stable on current settings continue weaning protocol as tolerated CT head no acute IC pathology but evidence of aneurysm clipping, craniotomy and encephalomalacia Neuro follows seizure precautions Keppra IV renal US monitor renal parameters, lytes, avoid nephrotoxic dc IVF strict aspiration precautions with NGT feeding (goal reached) , added flushes cardio eval appreciated minimally elevated troponin, no cardiac complaints BS management with SS of insulin monitor counts, anemia w/up additional K supplement today ( K-3.5) case discussed and evaluated by supervising physician Critical Care - Objective Last 24 Hour Vital Signs Date Time Temp Pulse Resp B/P (MAP) Pulse Ox O2 Delivery O2 Flow Rate FiO2 09/29/17 09:03 30 09/29/17 09:02 100 09/29/17 09:01 63 16 30 09/29/17 09:00 83 20 159/58 100 Mechanical Ventilator 30 09/29/17 08:00 68 16 141/48 100 Mechanical Ventilator 30 09/29/17 08:00 63 09/29/17 08:00 30 09/29/17 07:00 99.8 61 16 143/47 100 Mechanical Ventilator 30 09/29/17 06:56 65 16 30 09/29/17 06:00 64 16 137/50 100 Mechanical Ventilator 30 09/29/17 05:27 80 16 30 09/29/17 05:00 69 16 142/50 100 Mechanical Ventilator 30 09/29/17 04:00 66 09/29/17 04:00 98.7 66 16 133/45 100 Mechanical Ventilator 30 09/29/17 04:00 30 09/29/17 03:15 71 16 30 09/29/17 03:00 65 16 133/42 100 Mechanical Ventilator 30 09/29/17 02:00 69 16 135/41 100 Mechanical Ventilator 30 09/29/17 01:28 75 16 30 09/29/17 01:00 76 16 134/47 100 Mechanical Ventilator 30 09/29/17 00:38 30 09/29/17 00:00 98.6 68 16 140/44 100 Mechanical Ventilator 30 09/29/17 00:00 68 2/11/10 23:04 70 16 30 218 23:00 70 16 106/35 100 Mechanical Ventilator 30 09/28/17 22:00 80 16 133/46 100 Mechanical Ventilator 30 09/28/17 21:05 75 16 30 218 21:00 83 19 139/53 100 Mechanical Ventilator 30 09/28/17 20:00 30 09/28/17 20:00 98.8 76 23 142/47 100 Mechanical Ventilator 30 09/28/17 20:00 76 09/28/ 19:02 79 24 30 09/28/17 19:00 79 23 135/59 100 Mechanical Ventilator 30 09/28/17 18:00 72 21 135/43 100 Mechanical Ventilator 30 09/28/17 17:00 72 15 129/48 100 Mechanical Ventilator 30 09/28/17 16:32 80 23 30 09/28/17 16:00 30 09/28/17 16:00 99.2 81 18 139/55 100 Mechanical Ventilator 30 09/28/17 15:48 84 18 15:00 77 16 143/50 100 Mechanical Ventilator 30 09/28/17 14:51 30 09/28/17 14:40 72 13 30 18 14:00 71 16 144/46 100 Mechanical Ventilator 30 09/28/17 13:00 65 16 134/46 100 Mechanical Ventilator 30 09/28/17 12:49 30 09/28/17 12:43 64 16 30 09/28/17 12:20 64 09/28/18 12:00 30 09/28/17 12:00 98.9 70 16 126/40 100 Mechanical Ventilator 30 09/28/17 11:15 64 16 30 2/18 11:00 65 16 146/47 100 Mechanical Ventilator 30 09/28/17 10:00 70 16 127/45 100 Mechanical Ventilator 30 Objective: Status: awake, responsive Condition: critical HEENT: atraumatic, normocephalic, OP with ET in place, intact ; OP tube with TF Lungs: clear Heart: HR/BP stable Abdomen: soft, non-tender, active bowel sounds Extremities: no C/C/E Micro: Microbiology Date/Time Source Procedure Growth Status 09/26/17 19:20 Blood Blood Culture - Preliminary NO GROWTH AFTER 48 HOURS Resulted 09/26/17 19:15 Blood Blood Culture - Preliminary NO GROWTH AFTER 48 HOURS Resulted 09/27/17 01:00 Nasal Nares MRSA Culture - Final NO METHICILLIN RESISTANT STAPH AUREUS... Complete 09/27/17 01:00 Rectum VRE Culture - Final NO VANCOMYCIN RESISTANT ENTEROCOCCUS ... Complete Accucheck: 137 Critical Care - Subjective ROS Limited/Unobtainable: Yes Interval Events: remains intubated awake, alert no signs of resp distress troponin trending down, minimally elevated, seen and evaluated by cardio no c/o chest pain Condition: critical IV Access: peripheral EKG Rhythm: Sinus Rhythm FI02: 30 Vent Support Breath Rate: 16 Vent Support Mode: CPAP Vent Tidal Volume: 600 Sputum Amount: Small PEEP: 5.0 PIP: 43 Fluids: D51/2NS at 75 Tube Feeding Amount: 55 I&O: Intake and Output 09/28/17 09/29/17 19:00 07:00 Intake Total 1875 ml 1610 ml Output Total 575 ml 900 ml Balance 1300 ml 710 ml Free Water 60 ml IV Total 1275 ml 950 ml Tube Feeding 510 ml 660 ml Other 30 ml Output Urine Total 575 ml 900 ml # Bowel Movements 2 CXR: Bilateral interstitial disease persists. Heart remains enlarged. Stable satisfactory positions of endotracheal and nasogastric tubes ET-Tube: 7.0 ET Position: 21 [address] (Tisha Cortes NP Sep 29, 2017 10:04
[2017-09-29] MEDS ORDERED: NS 275ml ONE (10:17)
[2017-09-29] MEDS ORDERED: D5 1/2NS 1000ml IV ONE (10:17)
[2017-09-29 11:18] LABS: FERRITIN 177 NG/ML (8-388)
--- NOTE | 2017-09-29 11:20 | Diagnostic Imaging Report ---
Indication: Shortness of breath Technique: One view of the chest Comparison: 09/28/2017 Findings: Bilateral interstitial disease persists. Heart remains enlarged. Stable satisfactory positions of endotracheal and nasogastric tubes Impression: Unchanged, over one day, findings as above.
[2017-09-29 11:57] LABS: % IRON SATURATION 7 % (15-50); IRON 20 ug/dL (50-175); TOTAL IRON BINDING CAPACITY 302 ug/dL (250-450)
[2017-09-29] MEDS ORDERED: Potassium Chloride 20 MEQ in NS 275 ML IVPB ONE (12:00)
--- NOTE | 2017-09-29 15:29 | Internal Med Progress Note ---
Subjective Date of Service: Sep 29, 2017 Physician Name Andrew Celeste Attending Physician Christian Catherine MD Current Medications Medications (Trade) Dose Ordered Sig/Xander Route PRN Reason Start Time Stop Time Status Last Admin Dose Admin Acetaminophen (Tylenol) 650 mg Q4H PRN ORAL Fever 09/26/17 22:45 10/26/17 22:44 Albuterol/ Ipratropium (Albuterol/ Ipratropium) 3 ml EVERY 4 HOURS PRN HHN Shortness of Breath 09/26/17 22:45 10/01/17 22:44 Dextrose (Dextrose 50%) STAT PRN IV Hypoglycemia 09/27/17 12:15 10/27/17 12:14 Heparin Sodium (Porcine) (Heparin 5000 units/ml) 5,000 units EVERY 12 HOURS SUBQ 09/27/17 09:00 10/27/17 08:59 09/29/17 08:48 Insulin Aspart (NovoLOG) EVERY 6 HOURS SUBQ 09/27/17 13:30 10/27/17 13:29 09/29/17 06:17 Levetiracetam 1500 mg/Sodium Chloride 125 ml @ 245 mls/hr Q12HR IV 09/27/17 12:00 10/27/17 11:59 09/29/17 08:55 Lorazepam (Ativan 2mg/ml 1ml) 2 mg EVERY 2 HOURS PRN IV agitation 09/26/17 22:45 10/03/17 22:44 09/27/17 22:03 Morphine Sulfate (Morphine Sulfate) 4 mg EVERY 4 HOURS PRN IVP Severe Pain (Pain Scale 7-10) 09/26/17 22:45 10/03/17 22:44 Nitroglycerin (Ntg) 0.4 mg Q5M PRN SL Prn Chest Pain 09/26/17 22:45 10/26/17 22:44 Ondansetron HCl (Zofran) 4 mg Q6H PRN IVP Nausea & Vomiting 09/26/17 22:45 10/26/17 22:44 Pantoprazole (Protonix) 40 mg EVERY 12 HOURS IVP 09/27/17 21:00 10/27/17 20:59 09/29/17 08:46 Allergies: Coded Allergies: No Known Allergies (Unverified , 01/14/17) ROS Limited/Unobtainable: Yes Subjective 57 YO F admitted with chief complaint shortness of breath. Now respiratory failure on vent. ICU. Cover for Int Nba-Dr Catherine Objective Last Vital Signs Date Time Temp Pulse Resp B/P (MAP) Pulse Ox O2 Delivery O2 Flow Rate FiO2 09/29/17 14:00 84 19 147/50 100 Mechanical Ventilator 30 09/29/17 12:00 99.0 09/27/17 03:00 Laboratory Tests Test 09/28/17 19:34 09/29/17 05:50 09/29/17 05:59 09/29/17 10:25 Troponin I 0.368 ng/mL (0.000-0.056) White Blood Count 10.3 K/UL (4.8-10.8) Red Blood Count 2.88 M/UL (4.20-5.40) L Hemoglobin 9.1 G/DL (12.0-16.0) L Hematocrit 26.1 % (37.0-47.0) L Mean Corpuscular Volume 91 FL (80-99) Mean Corpuscular Hemoglobin 31.6 PG (27.0-31.0) H Mean Corpuscular Hemoglobin Concent 34.8 G/DL (32.0-36.0) Red Cell Distribution Width 11.1 % (11.6-14.8) L Platelet Count 292 K/UL (150-450) Mean Platelet Volume 5.5 FL (6.5-10.1) L Neutrophils (%) (Auto) 68.0 % (45.0-75.0) Lymphocytes (%) (Auto) 20.6 % (20.0-45.0) Monocytes (%) (Auto) 7.5 % (1.0-10.0) Eosinophils (%) (Auto) 3.3 % (0.0-3.0) H Basophils (%) (Auto) 0.7 % (0.0-2.0) Sodium Level 139 MMOL/L (136-145) Potassium Level 3.5 MMOL/L (3.5-5.1) Chloride Level 108 MMOL/L (98-107) H Carbon Dioxide Level 23 MMOL/L (21-32) Anion Gap 8 mmol/L (5-15) Blood Urea Nitrogen 10 mg/dL (7-18) Creatinine 0.7 MG/DL (0.55-1.30) Estimat Glomerular Filtration Rate > 60 mL/min (>60) Glucose Level 149 MG/DL (74-106) #H Calcium Level 8.2 MG/DL (8.5-10.1) L Iron Level 20 ug/dL (50-175) L Total Iron Binding Capacity 302 ug/dL (250-450) Percent Iron Saturation 7 % (15-50) L Unsaturated Iron Binding 282 ug/dL (112-346) Ferritin 177 NG/ML (8-388) Vitamin B12 Level 575 PG/ML (193-986) RBC Folate Hemolysate Pending Red Blood Cell Folate Pending Arterial Blood pH 7.410 (7.350-7.450) Arterial Blood Partial Pressure CO2 40.9 mmHg (35.0-45.0) Arterial Blood Partial Pressure O2 121.1 mmHg (75.0-100.0) H Arterial Blood HCO3 25.7 mmol/L (22.0-26.0) Arterial Blood Oxygen Saturation 97.8 % (92.0-98.0) Arterial Blood Base Excess 1.1 Roly Test Positive Microbiology Date/Time Source Procedure Growth Status 09/26/17 19:20 Blood Blood Culture - Preliminary NO GROWTH AFTER 48 HOURS Resulted 09/26/17 19:15 Blood Blood Culture - Preliminary NO GROWTH AFTER 48 HOURS Resulted 09/27/17 01:00 Nasal Nares MRSA Culture - Final NO METHICILLIN RESISTANT STAPH AUREUS... Complete 09/27/17 01:00 Rectum VRE Culture - Final NO VANCOMYCIN RESISTANT ENTEROCOCCUS ... Complete Intake and Output 09/28/17 09/29/17 19:00 07:00 Intake Total 1875 ml 1610 ml Output Total 575 ml 900 ml Balance 1300 ml 710 ml Free Water 60 ml IV Total 1275 ml 950 ml Tube Feeding 510 ml 660 ml Other 30 ml Output Urine Total 575 ml 900 ml # Bowel Movements 2 Objective General Appearance: WD/WN, moderate distress EENT: normal ENT inspection Neck: non-tender, normal alignment, supple Cardiovascular: normal peripheral pulses, normal rate, regular rhythm, no gallop/murmur, no JVD Respiratory/Chest: Mech vent; crackles/rales, rhonchi - bilaterally, expiratory wheezing, other - Mech vent Abdomen: normal bowel sounds, non tender, soft, no organomegaly, no mass Extremities: normal range of motion, non-tender 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 (3) HTN (hypertension) (4) Hypercholesteremia (5) Respiratory failure Assessment & Plan: Cont vent per pulmonary (6) Seizure disorder Assessment & Plan: See neurology note. Cont keppra Status: not improved ANDREW CELESTE Sep 29, 2017 15:29
--- NOTE | 2017-09-29 16:53 | Cardiology Report ---
APPROVED REPORT EKG Measurement Heart [id number] ID [id number] Sinus tachycardia Possible Left atrial enlargement Nonspecific T wave abnormality Abnormal ECG
--- NOTE | 2017-09-29 19:21 | Cardiology Progress Note ---
Assessment/Plan Problem List: (1) Seizure disorder (2) Elevated troponin (3) Diabetes mellitus, type II (4) HTN (hypertension) Status: stable, progressing Status Narrative Pt adm w/ seizures. Remote hx of aneurysm clipping after intracranial bleed. Luigippra increased per Neurology. She has mild troponin elevation on adm, and levels are decreasing - suspect demand ischemia. BP is elevated. Assessment/Plan Will give iv b blockers for BP control. Restart SELENA inhibitors once pt extubated, able to take po. ECHO pending to assess LV function Once pt extubated, stable, would do stress nuclear study to r/o ischemia. Subjective ROS Limited/Unobtainable: Yes Subjective Cardiology for Dr. Rdz Pt remains on vent. Alert. No c/o pain Objective Last 24 Hour Vital Signs Date Time Temp Pulse Resp B/P (MAP) Pulse Ox O2 Delivery O2 Flow Rate FiO2 09/29/17 18:00 75 21 141/43 100 Mechanical Ventilator 30 09/29/17 17:00 78 24 30 09/29/17 17:00 71 17 137/52 100 Mechanical Ventilator 30 09/29/17 16:10 77 09/29/17 16:00 98.5 78 22 152/49 100 Mechanical Ventilator 30 09/29/17 16:00 30 09/29/17 15:00 81 18 149/46 100 Mechanical Ventilator 30 09/29/17 14:00 84 19 147/50 100 Mechanical Ventilator 30 09/29/17 13:20 78 19 30 09/29/17 13:00 87 17 145/48 100 Mechanical Ventilator 30 09/29/17 12:22 76 09/29/17 12:00 99.0 79 19 141/48 100 Mechanical Ventilator 30 09/29/17 11:00 77 17 144/46 100 Mechanical Ventilator 30 09/29/17 10:50 74 21 30 09/29/17 10:00 88 23 112/70 100 Mechanical Ventilator 30 09/29/17 09:03 30 09/29/17 09:02 100 09/29/17 09:01 63 16 30 09/29/17 09:00 83 20 159/58 100 Mechanical Ventilator 30 09/29/17 08:00 68 16 141/48 100 Mechanical Ventilator 30 09/29/17 08:00 63 09/29/17 08:00 30 09/29/17 07:00 99.8 61 16 143/47 100 Mechanical Ventilator 30 09/29/17 06:56 65 16 30 09/29/17 06:00 64 16 137/50 100 Mechanical Ventilator 30 09/29/17 05:27 80 16 30 09/29/17 05:00 69 16 142/50 100 Mechanical Ventilator 30 09/29/17 04:00 66 09/29/17 04:00 98.7 66 16 133/45 100 Mechanical Ventilator 30 09/29/17 04:00 30 09/29/17 03:15 71 16 30 09/29/17 03:00 65 16 133/42 100 Mechanical Ventilator 30 09/29/17 02:00 69 16 135/41 100 Mechanical Ventilator 30 09/29/17 01:28 75 16 30 09/29/17 01:00 76 16 134/47 100 Mechanical Ventilator 30 09/29/17 00:38 30 09/29/17 00:00 98.6 68 16 140/44 100 Mechanical Ventilator 30 09/29/17 00:00 68 09/28/17 23:04 70 16 30 09/28/17 23:00 70 16 106/35 100 Mechanical Ventilator 30 09/28/17 22:00 80 16 133/46 100 Mechanical Ventilator 30 09/28/17 21:05 75 16 30 09/28/17 21:00 83 19 139/53 100 Mechanical Ventilator 30 09/28/17 20:00 30 09/28/17 20:00 98.8 76 23 142/47 100 Mechanical Ventilator 30 09/28/17 20:00 76 General Appearance: WD/WN, obese, on vent EENT: PERRL/EOMI Neck: supple, no JVD Rhythm: NSR Cardiovascular: normal rate, regular rhythm, no gallop/murmur Respiratory/Chest: other - few rhonchi. Good air movement Abdomen: non tender, soft Extremities: no swelling Intake and Output 09/28/17 09/29/17 19:00 07:00 Intake Total 1875 ml 1610 ml Output Total 575 ml 900 ml Balance 1300 ml 710 ml Free Water 60 ml IV Total 1275 ml 950 ml Tube Feeding 510 ml 660 ml Other 30 ml Output Urine Total 575 ml 900 ml # Bowel Movements 2 Laboratory Tests Test 09/28/17 19:34 09/29/17 05:50 09/29/17 05:59 09/29/17 10:25 Troponin I 0.368 ng/mL (0.000-0.056) White Blood Count 10.3 K/UL (4.8-10.8) Red Blood Count 2.88 M/UL (4.20-5.40) L Hemoglobin 9.1 G/DL (12.0-16.0) L Hematocrit 26.1 % (37.0-47.0) L Mean Corpuscular Volume 91 FL (80-99) Mean Corpuscular Hemoglobin 31.6 PG (27.0-31.0) H Mean Corpuscular Hemoglobin Concent 34.8 G/DL (32.0-36.0) Red Cell Distribution Width 11.1 % (11.6-14.8) L Platelet Count 292 K/UL (150-450) Mean Platelet Volume 5.5 FL (6.5-10.1) L Neutrophils (%) (Auto) 68.0 % (45.0-75.0) Lymphocytes (%) (Auto) 20.6 % (20.0-45.0) Monocytes (%) (Auto) 7.5 % (1.0-10.0) Eosinophils (%) (Auto) 3.3 % (0.0-3.0) H Basophils (%) (Auto) 0.7 % (0.0-2.0) Sodium Level 139 MMOL/L (136-145) Potassium Level 3.5 MMOL/L (3.5-5.1) Chloride Level 108 MMOL/L (98-107) H Carbon Dioxide Level 23 MMOL/L (21-32) Anion Gap 8 mmol/L (5-15) Blood Urea Nitrogen 10 mg/dL (7-18) Creatinine 0.7 MG/DL (0.55-1.30) Estimat Glomerular Filtration Rate > 60 mL/min (>60) Glucose Level 149 MG/DL (74-106) #H Calcium Level 8.2 MG/DL (8.5-10.1) L Iron Level 20 ug/dL (50-175) L Total Iron Binding Capacity 302 ug/dL (250-450) Percent Iron Saturation 7 % (15-50) L Unsaturated Iron Binding 282 ug/dL (112-346) Ferritin 177 NG/ML (8-388) Vitamin B12 Level 575 PG/ML (193-986) RBC Folate Hemolysate Pending Red Blood Cell Folate Pending Arterial Blood pH 7.410 (7.350-7.450) Arterial Blood Partial Pressure CO2 40.9 mmHg (35.0-45.0) Arterial Blood Partial Pressure O2 121.1 mmHg (75.0-100.0) H Arterial Blood HCO3 25.7 mmol/L (22.0-26.0) Arterial Blood Oxygen Saturation 97.8 % (92.0-98.0) Arterial Blood Base Excess 1.1 Roly Test Positive Microbiology Date/Time Source Procedure Growth Status 09/26/17 19:20 Blood Blood Culture - Preliminary NO GROWTH AFTER 48 HOURS Resulted 09/26/17 19:15 Blood Blood Culture - Preliminary NO GROWTH AFTER 48 HOURS Resulted 09/27/17 01:00 Nasal Nares MRSA Culture - Final NO METHICILLIN RESISTANT STAPH AUREUS... Complete 09/27/17 01:00 Rectum VRE Culture - Final NO VANCOMYCIN RESISTANT ENTEROCOCCUS ... Complete PETE JACKSON Sep 29, 2017 19:21
[2017-09-29] MEDS: METOPROLOL TARTRATE IVP SCH (20:38)
[2017-09-29] MEDS: NS IVP SCH (20:38)
--- NOTE | 2017-09-29 23:05 | Consultation ---
DATE OF CONSULTATION: 09/28/2017 CARDIOLOGY CONSULTATION CONSULTING PHYSICIAN: Linda Robin M.D. REQUESTING PHYSICIAN: Richmond Alvarado M.D. REASON FOR CONSULT: Elevated troponin. HISTORY OF PRESENT ILLNESS: History is obtained primarily from the chart as the patient is intubated and unable to give much history. The patient is a 57-year-old woman with history of subarachnoid hemorrhage due to ruptured cerebral aneurysm in 2016, treated with craniotomy and aneurysm clip with subsequent chronic seizures. She was brought to the emergency room on 09/27/2017, found on the floor, confused by her family. In the emergency room, she had observed generalized seizures. She was intubated and was evaluated by Neurology. Keppra dose was increased and she was also prescribed Ativan for breakthrough seizures. She has a history of hypertension, but no previous history of angina or myocardial infarction. Her initial troponin was 0.169, repeat 0.514, and then 0.390. Cardiology evaluation was requested. She denies any current or previous chest pain or palpitations. She has had an echo, which does not show any significant ST-segment changes. PAST MEDICAL HISTORY: As noted above. MEDICATIONS: 1. Protonix 40 mg IV every 12 hours. 2. Insulin protocol. 3. Keppra 1500 mg IV q.12 hours. 4. Subcutaneous heparin 5000 units q.12 hours. 5. DuoNeb nebulizer q.12 hours p.r.n. 6. Zofran p.r.n. 7. Ativan p.r.n. ALLERGIES: No known drug allergies. SOCIAL HISTORY: The patient is a nonsmoker. Denies alcohol or drug use. PHYSICAL EXAMINATION: VITAL SIGNS: Blood pressure is 135/43, pulse 72, respirations 20, and afebrile. GENERAL: Alert, obese female, in no acute distress. She is alert and able to respond by nodding or shaking her head to questions. HEENT: Endotracheal and nasogastric tubes in place. Pupils are equal, round, and reactive to light. NECK: Supple. There is no jugular venous distention. LUNGS: Clear to auscultation. HEART: Regular S1 and S2 with no murmurs, rubs, or S3. ABDOMEN: Obese, soft, and nontender. No palpable mass. EXTREMITIES: No cyanosis, clubbing, or edema. PULSES: Distal lower extremity pulses are 2+ bilaterally. NEUROLOGIC: No focal motor deficits. LABORATORY AND DIAGNOSTIC DATA: Laboratory data are significant for low potassium of 3.0, BUN 14, and creatinine 0.8. Troponin of 0.169 on admission, repeat this morning 0.51 and this afternoon 0.39. Hemoglobin 9.1, hematocrit 26 (on admission 13.8 and 42), white blood count on admission 21,000, repeat 8700 and platelets 290,000. EKG shows sinus tachycardia, rate of 110, axis +30 degrees, borderline voltage for left ventricular hypertrophy, and nonspecific T-wave changes (no old EKG available for comparison). Echo (preliminary report) shows EF 55%, normal systolic function, no significant valve lesions, mitral inflow pseudonormalization consistent with elevated left atrial pressure and pulmonary hypertension, moderate with PA pressure estimated at 48 mmHg. ASSESSMENT AND RECOMMENDATIONS: The patient is a 57-year-old woman with a history of cerebral aneurysm rupture in 2016 treated surgically and with subsequent chronic seizures on Keppra. She was admitted with recurrent seizures. She is being evaluated by Neurology. She was intubated for airway protection. In this setting, she is noted to have troponin elevation without significant ischemic changes on EKG. She has a history of hypertension and may have coronary disease though cannot rule out troponin elevation. Her echo preliminary report does not indicate any significant left ventricular systolic dysfunction though the technical without ischemic EKG changes. Her echo shows preserved left ventricular systolic function though regional wall motion could not be assessed due to technical factors. I suspect the troponin elevation is due to demand ischemia rather than a primary acute coronary syndrome, however, she may have significant coronary artery disease. I would recommend further assessment with noninvasive testing for ischemia once her neurologic issues have been stabilized. Lipid panel will be obtained. Blood pressure will be followed and beta-blockers initiated. Further recommendations will be made following results of noninvasive testing for ischemia. Linda Robin M.D. DR: Nova JOB#: [id number] CC:
[2017-09-30] VITALS (18 sets, daily range): BP systolic 111–151; BP diastolic 39–61
[2017-09-30] MEDS ORDERED: Metoprolol 5mg/5ml Inj IVPB SCH
[2017-09-30] MEDS: NovoLOG Insulin Flexpen SUBQ SCH ×4 (05:56→18:43)
[2017-09-30] MEDS: NS IVP SCH ×2 (06:03→12:00)
[2017-09-30] MEDS: METOPROLOL TARTRATE IVP SCH ×2 (06:03→12:00)
[2017-09-30 06:17] LABS: BASOPHILS % (AUTO) 0.6 % (0.0-2.0); EOSINOPHILS % (AUTO) 3.2 % (0.0-3.0); HEMATOCRIT 28.8 % (37.0-47.0); HEMOGLOBIN 10.1 G/DL (12.0-16.0); LYMPHOCYTES % (AUTO) 17.7 % (20.0-45.0); MEAN CORPUSCULAR VOLUME 90 FL (80-99); MONOCYTES % (AUTO) 6.6 % (1.0-10.0); NEUTROPHILS % (AUTO) 71.9 % (45.0-75.0); PLATELET COUNT 408 K/UL (150-450); RED BLOOD COUNT 3.18 M/UL (4.20-5.40)
[2017-09-30 06:19] LABS: ANION GAP 6 mmol/L (5-15); BLOOD UREA NITROGEN 12 mg/dL (7-18); CALCIUM 8.9 MG/DL (8.5-10.1); CARBON DIOXIDE 28 MMOL/L (21-32); CHLORIDE 105 MMOL/L (98-107); CREATININE 0.7 MG/DL (0.55-1.30); POTASSIUM 3.8 MMOL/L (3.5-5.1); SODIUM 139 MMOL/L (136-145)
[2017-09-30] MEDS: Heparin 5000 units/ml inj SUBQ SCH ×2 (09:30→21:47)
[2017-09-30] MEDS: Pantoprazole Inj IVP SCH ×2 (09:36→21:46)
[2017-09-30] MEDS: NS IV SCH (09:36)
[2017-09-30] MEDS: LEVETIRACETAM IV SCH (09:36)
--- NOTE | 2017-09-30 10:07 | Diagnostic Imaging Report ---
Indication: Shortness of breath Technique: One view of the chest Comparison: 09/29/2017 Findings: Stable satisfactory positions of endotracheal and nasogastric tubes. Reticulonodular liver interstitial disease appears slightly improved, although apparent improvement may be an artifact of different exposure technique. The heart size is normal Impression: Suspect some improvement of reticulonodular interstitial disease, over one day Stable satisfactory tube positions as described
--- NOTE | 2017-09-30 10:57 | Cardiology Report ---
APPROVED REPORT EXAM: Two-dimensional and M-mode echocardiogram with Doppler and color Doppler. INDICATION LV function M-Mode DIMENSIONS IVSd1.0 (0.7-1.1cm)Left Atrium (MM)4.0 (1.6-4.0cm) LVDd5.6 (3.5-5.6cm)Aortic Root2.5 (2.0-3.7cm) PWd1.2 (0.7-1.1cm)Aortic Cusp Exc.1.6 (1.5-2.0cm) LVDs4.0 (2.5-4.0cm) PWs1.7 cm Mild left ventricular enlargement. Normal left ventricular systolic function and wall motion to extent visualized. Left ventricular ejection fraction estimated to be 55 %. Study quality precludes accurate assessment of regional wall motion. No evidence of left ventricular hypertrophy. No evidence of pericardial effusion. Mild left atrial enlargement. Right cardiac chamber sizes are within normal limits. Focal aortic valve sclerosis with adequate cusp excursion. Thickened mitral valve leaflets with normal excursion. Mitral annulus and aortic root calcification. Pulmonic valve not well visualized. Normal tricuspid valve structure. IVC dilated at 2.2 cm with slight physiologic collapse suggestive of mildly increased RA pressure. A color flow and spectral Doppler study was performed and revealed: Trace aortic regurgitation. Mild mitral regurgitation. Mitral inflow velocities indicates possible pseudo normalization pattern implying moderately elevated left atrial pressure (Grade II ). Mild tricuspid regurgitation. Tricuspid systolic velocities suggests peak right ventricular systolic pressure of 48 mmHg, consistent with moderate pulmonary hypertension. Trace pulmonic regurgitation present.
--- NOTE | 2017-09-30 11:16 | Pulmonolgy Critical Care Note ---
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 - Objective Last 24 Hour Vital Signs Date Time Temp Pulse Resp B/P (MAP) Pulse Ox O2 Delivery O2 Flow Rate FiO2 09/30/17 11:10 Nasal Cannula 2.0 28 09/30/17 10:00 78 22 141/41 97 09/30/17 09:15 86 19 30 09/30/17 09:14 98 09/30/17 09:00 77 17 151/55 99 09/30/17 08:00 67 23 133/46 100 09/30/17 08:00 30 09/30/17 07:12 79 20 30 09/30/17 07:00 67 22 133/46 100 09/30/17 07:00 67 22 133/46 100 09/30/17 06:03 74 142/50 09/30/17 06:00 74 24 129/46 100 Mechanical Ventilator 30 09/30/17 05:03 74 21 30 09/30/17 05:00 72 23 150/49 100 Mechanical Ventilator 30 09/30/17 04:00 30 09/30/17 04:00 73 22 139/49 100 Mechanical Ventilator 30 09/30/17 04:00 73 09/30/17 03:01 77 22 30 09/30/17 03:00 75 22 139/49 100 Mechanical Ventilator 30 09/30/17 02:00 98.8 77 21 142/50 100 Mechanical Ventilator 30 09/30/17 01:08 77 22 30 09/30/17 01:00 74 21 137/50 100 Mechanical Ventilator 30 09/30/17 00:00 30 09/30/17 00:00 86 09/29/17 22:48 78 20 30 09/29/17 22:00 86 19 134/51 100 Mechanical Ventilator 30 09/29/17 21:08 75 21 30 09/29/17 21:00 75 14 135/49 100 Mechanical Ventilator 30 09/29/17 20:00 30 09/29/17 20:00 75 09/29/17 20:00 98.6 76 22 138/48 100 Mechanical Ventilator 30 09/29/17 19:15 72 22 30 09/29/17 19:00 87 20 137/40 100 Mechanical Ventilator 30 09/29/17 18:00 75 21 141/43 100 Mechanical Ventilator 30 09/29/17 17:00 78 24 30 09/29/17 17:00 71 17 137/52 100 Mechanical Ventilator 30 09/29/17 16:10 77 09/29/17 16:00 98.5 78 22 152/49 100 Mechanical Ventilator 30 09/29/17 16:00 30 09/29/17 15:00 81 18 149/46 100 Mechanical Ventilator 30 09/29/17 14:00 84 19 147/50 100 Mechanical Ventilator 30 09/29/17 13:20 78 19 30 09/29/17 13:00 87 17 145/48 100 Mechanical Ventilator 30 09/29/17 12:22 76 09/29/17 12:00 99.0 79 19 141/48 100 Mechanical Ventilator 30 Status: awake Condition: critical HEENT: atraumatic Neck: full ROM Lungs: chest wall tender Heart: regular Abdomen: soft, active bowel sounds, feeding tube Extremities: no C/C/E Accucheck: 143 Critical Care - Subjective ROS Limited/Unobtainable: No Condition: critical FI02: 28 Vent Support Breath Rate: 16 Vent Support Mode: CPAP Vent Tidal Volume: 600 Sputum Amount: Moderate PEEP: 5.0 PIP: 16 Tube Feeding Amount: 55 I&O: Intake and Output 09/29/17 09/30/17 19:00 07:00 Intake Total 1407.5 ml 1022.5 ml Output Total 1810 ml 1260 ml Balance -402.5 ml -237.5 ml Free Water 150 ml 180 ml IV Total 597.5 ml 182.5 ml Tube Feeding 660 ml 660 ml Output Urine Total 1810 ml 1260 ml CXR: clear ET-Tube: 7.0 ET Position: 21 Labs: Laboratory Tests Test 09/30/17 05:00 09/30/17 09:15 White Blood Count 13.0 K/UL (4.8-10.8) H Red Blood Count 3.18 M/UL (4.20-5.40) L Hemoglobin 10.1 G/DL (12.0-16.0) L Hematocrit 28.8 % (37.0-47.0) L Mean Corpuscular Volume 90 FL (80-99) Mean Corpuscular Hemoglobin 31.8 PG (27.0-31.0) H Mean Corpuscular Hemoglobin Concent 35.2 G/DL (32.0-36.0) Red Cell Distribution Width 11.0 % (11.6-14.8) L Platelet Count 408 K/UL (150-450) Mean Platelet Volume 5.2 FL (6.5-10.1) L Neutrophils (%) (Auto) 71.9 % (45.0-75.0) Lymphocytes (%) (Auto) 17.7 % (20.0-45.0) L Monocytes (%) (Auto) 6.6 % (1.0-10.0) Eosinophils (%) (Auto) 3.2 % (0.0-3.0) H Basophils (%) (Auto) 0.6 % (0.0-2.0) Sodium Level 139 MMOL/L (136-145) Potassium Level 3.8 MMOL/L (3.5-5.1) Chloride Level 105 MMOL/L (98-107) Carbon Dioxide Level 28 MMOL/L (21-32) Anion Gap 6 mmol/L (5-15) Blood Urea Nitrogen 12 mg/dL (7-18) Creatinine 0.7 MG/DL (0.55-1.30) Estimat Glomerular Filtration Rate > 60 mL/min (>60) Glucose Level 129 MG/DL (74-106) H Calcium Level 8.9 MG/DL (8.5-10.1) Arterial Blood pH 7.427 (7.350-7.450) Arterial Blood Partial Pressure CO2 42.6 mmHg (35.0-45.0) Arterial Blood Partial Pressure O2 115.0 mmHg (75.0-100.0) H Arterial Blood HCO3 27.5 mmol/L (22.0-26.0) H Arterial Blood Oxygen Saturation 98.0 % (92.0-98.0) Arterial Blood Base Excess 2.8 Roly Test Positive FARRUKH VALDEZ Sep 30, 2017 11:16
[2017-09-30] MEDS ORDERED: Racemic EPINEPHrine 2.25% 0.5ml HHN ONE (12:30)
--- NOTE | 2017-09-30 12:47 | Internal Med Progress Note ---
Subjective Date of Service: Sep 30, 2017 Physician Name Andrew Celeste Attending Physician Christian Catherine MD Current Medications Medications (Trade) Dose Ordered Sig/Xander Route PRN Reason Start Time Stop Time Status Last Admin Dose Admin Acetaminophen (Tylenol) 650 mg Q4H PRN ORAL Fever 09/26/17 22:45 10/26/17 22:44 Albuterol/ Ipratropium (Albuterol/ Ipratropium) 3 ml EVERY 4 HOURS PRN HHN Shortness of Breath 09/26/17 22:45 10/01/17 22:44 09/30/17 11:37 Dextrose (Dextrose 50%) STAT PRN IV Hypoglycemia 09/27/17 12:15 10/27/17 12:14 Heparin Sodium (Porcine) (Heparin 5000 units/ml) 5,000 units EVERY 12 HOURS SUBQ 09/27/17 09:00 10/27/17 08:59 09/30/17 09:30 Insulin Aspart (NovoLOG) EVERY 6 HOURS SUBQ 09/27/17 13:30 10/27/17 13:29 09/29/17 06:17 Levetiracetam 1500 mg/Sodium Chloride 125 ml @ 245 mls/hr Q12HR IV 09/27/17 12:00 10/27/17 11:59 09/30/17 09:36 Lorazepam (Ativan 2mg/ml 1ml) 2 mg EVERY 2 HOURS PRN IV agitation 09/26/17 22:45 10/03/17 22:44 09/27/17 22:03 Metoprolol Tartrate 2.5 mg/ Sodium Chloride 57.5 ml @ 115 mls/hr Q6HR IVP 09/30/17 00:00 10/30/17 00:00 09/30/17 06:03 Morphine Sulfate (Morphine Sulfate) 4 mg EVERY 4 HOURS PRN IVP Severe Pain (Pain Scale 7-10) 09/26/17 22:45 10/03/17 22:44 Nitroglycerin (Ntg) 0.4 mg Q5M PRN SL Prn Chest Pain 09/26/17 22:45 10/26/17 22:44 Ondansetron HCl (Zofran) 4 mg Q6H PRN IVP Nausea & Vomiting 09/26/17 22:45 10/26/17 22:44 Pantoprazole (Protonix) 40 mg EVERY 12 HOURS IVP 09/27/17 21:00 10/27/17 20:59 09/30/17 09:36 Allergies: Coded Allergies: No Known Allergies (Unverified , 01/14/17) ROS Limited/Unobtainable: No Constitutional: Reports: no symptoms HEENT: Reports: no symptoms Cardiovascular: Reports: no symptoms Respiratory: Reports: shortness of breath Gastrointestinal/Abdominal: Reports: no symptoms Genitourinary: Reports: no symptoms Neurologic/Psychiatric: Reports: no symptoms Subjective 57 YO F admitted with chief complaint shortness of breath. Now respiratory failure. Extubated earlier today-tolerating nasal canula. ICU. Cover for Int Med-Dr Catherine Objective Last Vital Signs Date Time Temp Pulse Resp B/P (MAP) Pulse Ox O2 Delivery O2 Flow Rate FiO2 09/30/17 12:38 89 18 95 Nasal Cannula 3.0 32 09/30/17 12:00 132/46 09/30/17 02:00 98.8 Laboratory Tests Test 09/30/17 05:00 09/30/17 09:15 White Blood Count 13.0 K/UL (4.8-10.8) H Red Blood Count 3.18 M/UL (4.20-5.40) L Hemoglobin 10.1 G/DL (12.0-16.0) L Hematocrit 28.8 % (37.0-47.0) L Mean Corpuscular Volume 90 FL (80-99) Mean Corpuscular Hemoglobin 31.8 PG (27.0-31.0) H Mean Corpuscular Hemoglobin Concent 35.2 G/DL (32.0-36.0) Red Cell Distribution Width 11.0 % (11.6-14.8) L Platelet Count 408 K/UL (150-450) Mean Platelet Volume 5.2 FL (6.5-10.1) L Neutrophils (%) (Auto) 71.9 % (45.0-75.0) Lymphocytes (%) (Auto) 17.7 % (20.0-45.0) L Monocytes (%) (Auto) 6.6 % (1.0-10.0) Eosinophils (%) (Auto) 3.2 % (0.0-3.0) H Basophils (%) (Auto) 0.6 % (0.0-2.0) Sodium Level 139 MMOL/L (136-145) Potassium Level 3.8 MMOL/L (3.5-5.1) Chloride Level 105 MMOL/L (98-107) Carbon Dioxide Level 28 MMOL/L (21-32) Anion Gap 6 mmol/L (5-15) Blood Urea Nitrogen 12 mg/dL (7-18) Creatinine 0.7 MG/DL (0.55-1.30) Estimat Glomerular Filtration Rate > 60 mL/min (>60) Glucose Level 129 MG/DL (74-106) H Calcium Level 8.9 MG/DL (8.5-10.1) Arterial Blood pH 7.427 (7.350-7.450) Arterial Blood Partial Pressure CO2 42.6 mmHg (35.0-45.0) Arterial Blood Partial Pressure O2 115.0 mmHg (75.0-100.0) H Arterial Blood HCO3 27.5 mmol/L (22.0-26.0) H Arterial Blood Oxygen Saturation 98.0 % (92.0-98.0) Arterial Blood Base Excess 2.8 Roly Test Positive Intake and Output 09/29/17 09/30/17 19:00 07:00 Intake Total 1407.5 ml 1022.5 ml Output Total 1810 ml 1260 ml Balance -402.5 ml -237.5 ml Free Water 150 ml 180 ml IV Total 597.5 ml 182.5 ml Tube Feeding 660 ml 660 ml Output Urine Total 1810 ml 1260 ml Objective General Appearance: WD/WN, moderate distress EENT: normal ENT inspection Neck: non-tender, normal alignment, supple Cardiovascular: normal peripheral pulses, normal rate, regular rhythm, no gallop/murmur, no JVD Respiratory/Chest: Nasal canula; crackles/rales, rhonchi - bilaterally, expiratory wheezing, other - Mech vent Abdomen: normal bowel sounds, non tender, soft, no organomegaly, no mass Extremities: normal range of motion, non-tender Neurologic: ccnp II-XII grossly normal Skin: normal pigmentation, warm/dry Assessment/Plan Problem List: (1) Altered mental status (2) Diabetes mellitus, type II Assessment & Plan: Continue novolog sliding scale. (3) HTN (hypertension) (4) Hypercholesteremia (5) Respiratory failure Assessment & Plan: s/P extubation today. See pulmonary note (6) Seizure disorder Assessment & Plan: See neurology note. Cont keppra Status: progressing ANDREW CELESTE Sep 30, 2017 12:47
[2017-09-30] MEDS ORDERED: LORazepam Inj 2mg/ml 1ml IV PRN (18:00)
[2017-09-30] MEDS ORDERED: METOPROLOL TARTRATE IVP SCH (18:00)
[2017-09-30] MEDS ORDERED: Nitroglycerin Subl 0.4mg tab SL PRN (18:00)
[2017-09-30] MEDS ORDERED: Morphine Sulfate 4mg/ml Inj IVP PRN (18:00)
[2017-09-30] MEDS ORDERED: NS IVP SCH (18:00)
[2017-09-30] MEDS ORDERED: Albuterol/Ipratropium 3ml neb HHN PRN (18:00)
--- NOTE | 2017-09-30 20:01 | Cardiology Progress Note ---
Assessment/Plan Assessment/Plan Seizure disorder Elevated troponin Diabetes mellitus, type II HTN (hypertension bp seems ok not on po med yet bb cannto be given if on [facility] floor Subjective ROS Limited/Unobtainable: Yes Objective Last 24 Hour Vital Signs Date Time Temp Pulse Resp B/P (MAP) Pulse Ox O2 Delivery O2 Flow Rate FiO2 09/30/17 18:00 98.2 73 17 111/46 100 Nasal Cannula 3.0 09/30/17 17:00 71 15 132/45 99 09/30/17 16:00 3.0 09/30/17 16:00 72 09/30/17 16:00 98.2 72 17 117/40 100 09/30/17 15:00 71 14 126/39 100 09/30/17 14:00 76 14 120/40 100 09/30/17 13:00 83 20 141/46 100 09/30/17 12:52 81 17 100 Nasal Cannula 3.0 32 09/30/17 12:38 89 18 95 Nasal Cannula 3.0 32 09/30/17 12:00 80 132/46 09/30/17 12:00 81 15 132/46 100 09/30/17 12:00 73 09/30/17 11:43 86 22 100 Nasal Cannula 2.0 28 09/30/17 11:30 83 18 96 Nasal Cannula 2.0 28 09/30/17 11:16 87 22 Nasal Cannula 2.0 28 09/30/17 11:14 94 Nasal Cannula 2.0 28 09/30/17 11:14 Nasal Cannula 28.0 28 09/30/17 11:10 Nasal Cannula 2.0 28 09/30/17 11:00 3.0 09/30/17 10:00 78 22 141/41 97 09/30/17 09:15 86 19 30 09/30/17 09:14 98 09/30/17 09:00 77 17 151/55 99 09/30/17 08:00 67 23 133/46 100 09/30/17 08:00 30 09/30/17 08:00 75 09/30/17 07:12 79 20 30 09/30/17 07:00 67 22 133/46 100 09/30/17 07:00 67 22 133/46 100 09/30/17 06:03 74 142/50 09/30/17 06:00 74 24 129/46 100 Mechanical Ventilator 30 09/30/17 05:03 74 21 30 09/30/17 05:00 72 23 150/49 100 Mechanical Ventilator 30 09/30/17 04:00 30 09/30/17 04:00 73 22 139/49 100 Mechanical Ventilator 30 09/30/17 04:00 73 09/30/17 03:01 77 22 30 09/30/17 03:00 75 22 139/49 100 Mechanical Ventilator 30 09/30/17 02:00 98.8 77 21 142/50 100 Mechanical Ventilator 30 09/30/17 01:08 77 22 30 09/30/17 01:00 74 21 137/50 100 Mechanical Ventilator 30 09/30/17 00:00 30 09/30/17 00:00 86 09/29/17 22:48 78 20 30 09/29/17 22:00 86 19 134/51 100 Mechanical Ventilator 30 09/29/17 21:08 75 21 30 09/29/17 21:00 75 14 135/49 100 Mechanical Ventilator 30 Intake and Output 09/29/17 09/30/17 19:00 07:00 Intake Total 1407.5 ml 1022.5 ml Output Total 1810 ml 1260 ml Balance -402.5 ml -237.5 ml Free Water 150 ml 180 ml IV Total 597.5 ml 182.5 ml Tube Feeding 660 ml 660 ml Output Urine Total 1810 ml 1260 ml Laboratory Tests Test 09/30/17 05:00 09/30/17 09:15 White Blood Count 13.0 K/UL (4.8-10.8) H Red Blood Count 3.18 M/UL (4.20-5.40) L Hemoglobin 10.1 G/DL (12.0-16.0) L Hematocrit 28.8 % (37.0-47.0) L Mean Corpuscular Volume 90 FL (80-99) Mean Corpuscular Hemoglobin 31.8 PG (27.0-31.0) H Mean Corpuscular Hemoglobin Concent 35.2 G/DL (32.0-36.0) Red Cell Distribution Width 11.0 % (11.6-14.8) L Platelet Count 408 K/UL (150-450) Mean Platelet Volume 5.2 FL (6.5-10.1) L Neutrophils (%) (Auto) 71.9 % (45.0-75.0) Lymphocytes (%) (Auto) 17.7 % (20.0-45.0) L Monocytes (%) (Auto) 6.6 % (1.0-10.0) Eosinophils (%) (Auto) 3.2 % (0.0-3.0) H Basophils (%) (Auto) 0.6 % (0.0-2.0) Sodium Level 139 MMOL/L (136-145) Potassium Level 3.8 MMOL/L (3.5-5.1) Chloride Level 105 MMOL/L (98-107) Carbon Dioxide Level 28 MMOL/L (21-32) Anion Gap 6 mmol/L (5-15) Blood Urea Nitrogen 12 mg/dL (7-18) Creatinine 0.7 MG/DL (0.55-1.30) Estimat Glomerular Filtration Rate > 60 mL/min (>60) Glucose Level 129 MG/DL (74-106) H Calcium Level 8.9 MG/DL (8.5-10.1) Arterial Blood pH 7.427 (7.350-7.450) Arterial Blood Partial Pressure CO2 42.6 mmHg (35.0-45.0) Arterial Blood Partial Pressure O2 115.0 mmHg (75.0-100.0) H Arterial Blood HCO3 27.5 mmol/L (22.0-26.0) H Arterial Blood Oxygen Saturation 98.0 % (92.0-98.0) Arterial Blood Base Excess 2.8 Roly Test Positive ALONZO MAYORGA Sep 30, 2017 20:01
[2017-10-01] VITALS: BP 128/64
[2017-10-01 03:57] VITALS: BP 128/66
[2017-10-01] MEDS: NS IV SCH ×3 (04:12→21:21)
[2017-10-01] MEDS: LEVETIRACETAM IV SCH ×3 (04:12→21:21)
[2017-10-01] MEDS: NovoLOG Insulin Flexpen SUBQ SCH ×4 (06:00→18:03)
[2017-10-01 08:00] VITALS: BP 117/60
[2017-10-01] MEDS: Pantoprazole Inj IVP SCH ×2 (08:36→21:21)
[2017-10-01] MEDS: Heparin 5000 units/ml inj SUBQ SCH ×2 (08:37→21:22)
--- NOTE | 2017-10-01 10:36 | Diagnostic Imaging Report ---
Indication: Dyspnea Technique: One view of the chest Comparison: 09/30/2017 Findings: Interim removal of endotracheal and nasogastric tubes. Interstitial congestion is probably stable, allowing for differences in exposure technique. The heart remains enlarged. Impression: Interim nasogastric and endotracheal tube removal. Otherwise little gear changer one day, findings as described including persistent interstitial congestion and cardiomegaly
--- NOTE | 2017-10-01 11:38 | Diagnostic Imaging Report ---
APPROVED REPORT CPT Code: 00668 Vascular Symptoms Comments: Altered LOC Technically difficult study due to patient status, stiff head and neck. Doppler Spectral Velocity Analysis RightLeft RIGHT SIDE: CCA - Imaging reveals no significant plaque within the extracranial carotid arteries. The Doppler spectral flow analysis is within normal limits throughout the extracranial carotid arteries. VERTEBRAL - The vertebral artery is within normal limits. LEFT SIDE: CCA/ECA - Imaging reveals no significant plaque in the common carotid and external carotid arteries. ICA - Imaging reveals irregular plaque in the internal carotid artery. The Doppler signal indicates the degree of stenosis is mild (30%) in the internal carotid artery. VERTEBRAL - The vertebral artery is within normal limits.
[2017-10-01 12:00] VITALS: BP 123/50
[2017-10-01 12:52] LABS: BASOPHILS % (AUTO) 0.6 % (0.0-2.0); EOSINOPHILS % (AUTO) 4.3 % (0.0-3.0); HEMATOCRIT 31.9 % (37.0-47.0); HEMOGLOBIN 10.7 G/DL (12.0-16.0); LYMPHOCYTES % (AUTO) 24.6 % (20.0-45.0); MEAN CORPUSCULAR VOLUME 92 FL (80-99); MONOCYTES % (AUTO) 5.6 % (1.0-10.0); NEUTROPHILS % (AUTO) 64.9 % (45.0-75.0); PLATELET COUNT 445 K/UL (150-450); RED BLOOD COUNT 3.45 M/UL (4.20-5.40); RED CELL DISTRIBUTION WIDTH 11.5 % (11.6-14.8); WHITE BLOOD COUNT 12.7 K/UL (4.8-10.8)
[2017-10-01 13:35] LABS: ALANINE AMINOTRANSFERASE 30 U/L (12-78); ALBUMIN/GLOBULIN RATIO 0.7 (1.0-2.7); ALKALINE PHOSPHATASE 92 U/L (46-116); ANION GAP 7 mmol/L (5-15); ASPARTATE AMINO TRANSFERASE 20 U/L (15-37); BILIRUBIN,TOTAL 0.5 MG/DL (0.2-1.0); BLOOD UREA NITROGEN 15 mg/dL (7-18); CARBON DIOXIDE 29 MMOL/L (21-32); CHLORIDE 107 MMOL/L (98-107); CREATININE 0.7 MG/DL (0.55-1.30); PHOSPHORUS 4.1 MG/DL (2.5-4.9); POTASSIUM 4.4 MMOL/L (3.5-5.1); SODIUM 143 MMOL/L (136-145)
--- NOTE | 2017-10-01 14:31 | Pulmonology Progress Note ---
Assessment/Plan Problems: (1) Respiratory failure (2) Altered mental status (3) HTN (hypertension) (4) Diabetes mellitus, type II (5) Seizure disorder Assessment/Plan pt/ pt advance diet check wbc, ? eitology, ID called dvt prophyalxis seizure meds. dc planning soon Subjective ROS Limited/Unobtainable: No Constitutional: Reports: no symptoms Respiratory: Reports: no symptoms Allergies: Coded Allergies: No Known Allergies (Unverified , 01/14/17) Objective Last 24 Hour Vital Signs Date Time Temp Pulse Resp B/P (MAP) Pulse Ox O2 Delivery O2 Flow Rate FiO2 10/01/17 12:00 97.9 74 18 123/50 98 Room Air 10/01/17 08:00 97.9 74 18 117/60 98 Room Air 10/01/17 03:57 98.2 60 18 128/66 100 Nasal Cannula 3.0 60 60 10/01/17 00:00 98.6 62 18 128/64 100 Nasal Cannula 3.0 62 62 09/30/17 22:57 Nasal Cannula 2.0 28 09/30/17 22:57 96 Nasal Cannula 2.0 28 09/30/17 22:57 80 24 Nasal Cannula 2.0 28 09/30/17 20:00 98.8 68 19 122/61 100 Nasal Cannula 3.0 68 09/30/17 18:00 98.2 73 17 111/46 100 Nasal Cannula 3.0 09/30/17 17:00 71 15 132/45 99 09/30/17 16:00 3.0 09/30/17 16:00 72 09/30/17 16:00 98.2 72 17 117/40 100 09/30/17 15:00 71 14 126/39 100 Intake and Output 09/30/17 10/01/17 19:00 07:00 Intake Total 495 ml 0 ml Output Total 775 ml 150 ml Balance -280 ml -150 ml Intake Oral 0 ml Tube Feeding 495 ml Output Urine Total 775 ml 150 ml # Voids 1 General Appearance: WD/WN, no acute distress HEENT: normocephalic, atraumatic, anicteric Respiratory/Chest: chest wall non-tender, lungs clear, normal breath sounds, no respiratory distress Breasts: no masses Cardiovascular: normal peripheral pulses, normal rate, regular rhythm Abdomen: soft, non tender Genitourinary: normal external genitalia Extremities: no cyanosis Skin: no rash Lymphatic: no neck adenopathy Laboratory Tests 10/01/17 09:04: Arterial Blood pH 7.390, Arterial Blood Partial Pressure CO2 49.3H, Arterial Blood Partial Pressure O2 130.0H, Arterial Blood HCO3 29.7H, Arterial Blood Oxygen Saturation 97.6, Arterial Blood Base Excess 4.2, Roly Test Positive 10/01/17 12:00: White Blood Count 12.7H, Red Blood Count 3.45L, Hemoglobin 10.7L, Hematocrit 31.9L, Mean Corpuscular Volume 92, Mean Corpuscular Hemoglobin 30.8, Mean Corpuscular Hemoglobin Concent 33.4, Red Cell Distribution Width 11.5L, Platelet Count 445, Mean Platelet Volume 5.2L, Neutrophils (%) (Auto) 64.9, Lymphocytes (%) (Auto) 24.6, Monocytes (%) (Auto) 5.6, Eosinophils (%) (Auto) 4.3H, Basophils (%) (Auto) 0.6, Sodium Level 143, Potassium Level 4.4, Chloride Level 107, Carbon Dioxide Level 29, Anion Gap 7, Blood Urea Nitrogen 15, Creatinine 0.7, Estimat Glomerular Filtration Rate > 60, Glucose Level 88, Calcium Level 9.0, Phosphorus Level 4.1, Magnesium Level 2.1, Total Bilirubin 0.5, Aspartate Amino Transf (AST/SGOT) 20, Alanine Aminotransferase (ALT/SGPT) 30, Alkaline Phosphatase 92, Total Protein 7.4, Albumin 3.0L, Globulin 4.4, Albumin/Globulin Ratio 0.7L Current Medications Medications (Trade) Dose Ordered Sig/Xander Route PRN Reason Start Time Stop Time Status Last Admin Dose Admin Acetaminophen (Tylenol) 650 mg Q4H PRN ORAL Fever 09/30/17 18:00 10/26/17 17:59 Albuterol/ Ipratropium (Albuterol/ Ipratropium) 3 ml Q4H PRN HHN Shortness of Breath 09/30/17 18:00 10/05/17 17:59 Dextrose (Dextrose 50%) STAT PRN IV Hypoglycemia 09/30/17 18:00 10/30/17 17:59 Heparin Sodium (Porcine) (Heparin 5000 units/ml) 5,000 units EVERY 12 HOURS SUBQ 09/30/17 21:00 10/27/17 08:59 10/01/17 08:37 Insulin Aspart (NovoLOG) EVERY 6 HOURS SUBQ 09/30/17 18:45 10/27/17 18:44 Levetiracetam 1500 mg/Sodium Chloride 125 ml @ 245 mls/hr Q12HR IV 09/30/17 21:00 10/27/17 11:59 10/01/17 08:36 Lorazepam (Ativan 2mg/ml 1ml) 2 mg Q2H PRN IV agitation 09/30/17 18:00 10/07/17 17:59 Morphine Sulfate (Morphine Sulfate) 4 mg Q4H PRN IVP Severe Pain (Pain Scale 7-10) 09/30/17 18:00 10/07/17 17:59 Nitroglycerin (Ntg) 0.4 mg Q5MIN PRN SL Prn Chest Pain 09/30/17 18:00 10/30/17 17:59 Ondansetron HCl (Zofran) 4 mg Q6H PRN IVP Nausea & Vomiting 09/30/17 18:15 10/26/17 18:14 Pantoprazole (Protonix) 40 mg EVERY 12 HOURS IVP 09/30/17 21:00 10/27/17 20:59 10/01/17 08:36 FARRUKH VALDEZ Oct 01, 2017 14:31
--- NOTE | 2017-10-01 15:58 | Consultation ---
History of Present Illness General Date patient seen: Oct 01, 2017 Time patient seen: 15:45 Chief Complaint: Dyspnea/Respdistress Present Illness HPI 57 y/o F with hx of DM, HTN, GERD, subarachnoid hemorrhage 2ry to rupture cerebral aneurysm s/p craionotomy and aneurysm clip 2015 w/ subsequent chronic seizures, is brought to ED on 09/26 after bein found down on the floors, confused. In ED, she had 2 witness generalized seizures and was intubated. Seizures meds optimized by neuro.She also had mild troponinemia. Upon admission WBC was 21.7. u/a normal. TOxicology neg. BS 244. Afebrile. Initial leukocytosis resoled, now recurrent to 13, down to 12 today. Denies cough, SOB, n/v/d, URI or urinary symptoms, f/c. Allergies: Coded Allergies: No Known Allergies (Unverified , 01/14/17) Medication History Scheduled Atorvastatin Calcium* (Lipitor*), 80 MG ORAL BEDTIME, (Reported) Levetiracetam (Keppra), 1,500 MG ORAL BID, (Reported) Lisinopril* (Lisinopril*), 10 MG ORAL DAILY, (Reported) Patient History Healthcare decision maker Resuscitation status Advanced Directive on File Patient History Narrative PMHx as above SHx: Denies: smoking, alcohol use, drug use FHx: non contributory Review of Systems All Other Systems: negative except mentioned in HPI Physical Exam Physical Exam Narrative General Appearance: WD/WN EENT: normal ENT inspection Neck: non-tender, normal alignment, supple Cardiovascular: normal peripheral pulses, normal rate, regular rhythm, no gallop/murmur, no JVD Respiratory/Chest: Nasal canula; crackles/rales, rhonchi - bilaterally, expiratory wheezing, other - Mech vent Abdomen: normal bowel sounds, non tender, soft, no organomegaly, no mass Extremities: normal range of motion, non-tender Neurologic: transportation attendant II-XII grossly normal Skin: normal pigmentation, warm/dry Last 24 Hour Vital Signs Date Time Temp Pulse Resp B/P (MAP) Pulse Ox O2 Delivery O2 Flow Rate FiO2 10/01/17 12:00 97.9 74 18 123/50 98 Room Air 10/01/17 08:00 97.9 74 18 117/60 98 Room Air 10/01/17 06:45 98 Nasal Cannula 2.0 28 10/01/17 06:45 Nasal Cannula 2.0 28 10/01/17 06:45 82 16 Nasal Cannula 2.0 28 10/01/17 03:57 98.2 60 18 128/66 100 Nasal Cannula 3.0 60 60 10/01/17 00:00 98.6 62 18 128/64 100 Nasal Cannula 3.0 62 62 09/30/17 22:57 Nasal Cannula 2.0 28 09/30/17 22:57 96 Nasal Cannula 2.0 28 09/30/17 22:57 80 24 Nasal Cannula 2.0 28 09/30/17 20:00 98.8 68 19 122/61 100 Nasal Cannula 3.0 68 09/30/17 18:00 98.2 73 17 111/46 100 Nasal Cannula 3.0 09/30/17 17:00 71 15 132/45 99 09/30/17 16:00 3.0 09/30/17 16:00 72 09/30/17 16:00 98.2 72 17 117/40 100 Intake and Output 09/30/17 10/01/17 19:00 07:00 Intake Total 495 ml 0 ml Output Total 775 ml 150 ml Balance -280 ml -150 ml Intake Oral 0 ml Tube Feeding 495 ml Output Urine Total 775 ml 150 ml # Voids 1 Laboratory Tests Test 10/01/17 09:04 10/01/17 12:00 Arterial Blood pH 7.390 (7.350-7.450) Arterial Blood Partial Pressure CO2 49.3 mmHg (35.0-45.0) H Arterial Blood Partial Pressure O2 130.0 mmHg (75.0-100.0) H Arterial Blood HCO3 29.7 mmol/L (22.0-26.0) H Arterial Blood Oxygen Saturation 97.6 % (92.0-98.0) Arterial Blood Base Excess 4.2 Roly Test Positive White Blood Count 12.7 K/UL (4.8-10.8) H Red Blood Count 3.45 M/UL (4.20-5.40) L Hemoglobin 10.7 G/DL (12.0-16.0) L Hematocrit 31.9 % (37.0-47.0) L Mean Corpuscular Volume 92 FL (80-99) Mean Corpuscular Hemoglobin 30.8 PG (27.0-31.0) Mean Corpuscular Hemoglobin Concent 33.4 G/DL (32.0-36.0) Red Cell Distribution Width 11.5 % (11.6-14.8) L Platelet Count 445 K/UL (150-450) Mean Platelet Volume 5.2 FL (6.5-10.1) L Neutrophils (%) (Auto) 64.9 % (45.0-75.0) Lymphocytes (%) (Auto) 24.6 % (20.0-45.0) Monocytes (%) (Auto) 5.6 % (1.0-10.0) Eosinophils (%) (Auto) 4.3 % (0.0-3.0) H Basophils (%) (Auto) 0.6 % (0.0-2.0) Sodium Level 143 MMOL/L (136-145) Potassium Level 4.4 MMOL/L (3.5-5.1) Chloride Level 107 MMOL/L (98-107) Carbon Dioxide Level 29 MMOL/L (21-32) Anion Gap 7 mmol/L (5-15) Blood Urea Nitrogen 15 mg/dL (7-18) Creatinine 0.7 MG/DL (0.55-1.30) Estimat Glomerular Filtration Rate > 60 mL/min (>60) Glucose Level 88 MG/DL (74-106) Calcium Level 9.0 MG/DL (8.5-10.1) Phosphorus Level 4.1 MG/DL (2.5-4.9) Magnesium Level 2.1 MG/DL (1.8-2.4) Total Bilirubin 0.5 MG/DL (0.2-1.0) Aspartate Amino Transf (AST/SGOT) 20 U/L (15-37) Alanine Aminotransferase (ALT/SGPT) 30 U/L (12-78) Alkaline Phosphatase 92 U/L (46-116) Total Protein 7.4 G/DL (6.4-8.2) Albumin 3.0 G/DL (3.4-5.0) L Globulin 4.4 g/dL Albumin/Globulin Ratio 0.7 (1.0-2.7) L Height (Feet): 5 Height (Inches): 0.00 Weight (Pounds): 142 Medications Current Medications Medications (Trade) Dose Ordered Sig/Xander Route PRN Reason Start Time Stop Time Status Last Admin Dose Admin Acetaminophen (Tylenol) 650 mg Q4H PRN ORAL Fever 09/30/17 18:00 10/26/17 17:59 Albuterol/ Ipratropium (Albuterol/ Ipratropium) 3 ml Q4H PRN HHN Shortness of Breath 09/30/17 18:00 10/05/17 17:59 Dextrose (Dextrose 50%) STAT PRN IV Hypoglycemia 09/30/17 18:00 10/30/17 17:59 Heparin Sodium (Porcine) (Heparin 5000 units/ml) 5,000 units EVERY 12 HOURS SUBQ 09/30/17 21:00 10/27/17 08:59 10/01/17 08:37 Insulin Aspart (NovoLOG) EVERY 6 HOURS SUBQ 09/30/17 18:45 10/27/17 18:44 Levetiracetam 1500 mg/Sodium Chloride 125 ml @ 245 mls/hr Q12HR IV 09/30/17 21:00 10/27/17 11:59 10/01/17 08:36 Lorazepam (Ativan 2mg/ml 1ml) 2 mg Q2H PRN IV agitation 09/30/17 18:00 10/07/17 17:59 Morphine Sulfate (Morphine Sulfate) 4 mg Q4H PRN IVP Severe Pain (Pain Scale 7-10) 09/30/17 18:00 10/07/17 17:59 Nitroglycerin (Ntg) 0.4 mg Q5MIN PRN SL Prn Chest Pain 09/30/17 18:00 10/30/17 17:59 Ondansetron HCl (Zofran) 4 mg Q6H PRN IVP Nausea & Vomiting 09/30/17 18:15 10/26/17 18:14 10/01/17 14:51 Pantoprazole (Protonix) 40 mg EVERY 12 HOURS IVP 09/30/17 21:00 10/27/17 20:59 10/01/17 08:36 Assessment/Plan Assessment/Plan Abx: None Assessment: Recurrent Seizure Mild leukocytosis, improving- likely reactive -CXR 10/01: Interstitial congestion is probably stable -2/1 u/a neg; Bcx NTD DM2 HTN GERD subarachnoid hemorrhage 2ry to rupture cerebral aneurysm s/p craionotomy and aneurysm clip 2015 Plan: -Continue to monitor off abx -f/u cx -Montior CBC/BMP, temperatures Thank you for this consultation. Will continue to follow along with you. Discussed with YSABEL. Lindsey Alberto M.D. Oct 01, 2017 15:58
[2017-10-01 16:00] VITALS: BP 123/61
--- NOTE | 2017-10-01 17:40 | Internal Med Progress Note ---
Subjective Date of Service: Oct 01, 2017 Physician Name Andrew Celeste Attending Physician Christian Catherine MD Current Medications Medications (Trade) Dose Ordered Sig/Xander Route PRN Reason Start Time Stop Time Status Last Admin Dose Admin Acetaminophen (Tylenol) 650 mg Q4H PRN ORAL Fever 09/30/17 18:00 10/26/17 17:59 Albuterol/ Ipratropium (Albuterol/ Ipratropium) 3 ml Q4H PRN HHN Shortness of Breath 09/30/17 18:00 10/05/17 17:59 Dextrose (Dextrose 50%) STAT PRN IV Hypoglycemia 09/30/17 18:00 10/30/17 17:59 Heparin Sodium (Porcine) (Heparin 5000 units/ml) 5,000 units EVERY 12 HOURS SUBQ 09/30/17 21:00 10/27/17 08:59 10/01/17 08:37 Insulin Aspart (NovoLOG) EVERY 6 HOURS SUBQ 09/30/17 18:45 10/27/17 18:44 Levetiracetam 1500 mg/Sodium Chloride 125 ml @ 245 mls/hr Q12HR IV 09/30/17 21:00 10/27/17 11:59 10/01/17 08:36 Lorazepam (Ativan 2mg/ml 1ml) 2 mg Q2H PRN IV agitation 09/30/17 18:00 10/07/17 17:59 Morphine Sulfate (Morphine Sulfate) 4 mg Q4H PRN IVP Severe Pain (Pain Scale 7-10) 09/30/17 18:00 10/07/17 17:59 Nitroglycerin (Ntg) 0.4 mg Q5MIN PRN SL Prn Chest Pain 09/30/17 18:00 10/30/17 17:59 Ondansetron HCl (Zofran) 4 mg Q6H PRN IVP Nausea & Vomiting 09/30/17 18:15 10/26/17 18:14 10/01/17 14:51 Pantoprazole (Protonix) 40 mg EVERY 12 HOURS IVP 09/30/17 21:00 10/27/17 20:59 10/01/17 08:36 Allergies: Coded Allergies: No Known Allergies (Unverified , 01/14/17) ROS Limited/Unobtainable: No Constitutional: Reports: no symptoms HEENT: Reports: throat pain Cardiovascular: Reports: no symptoms Respiratory: Reports: shortness of breath Gastrointestinal/Abdominal: Reports: no symptoms Genitourinary: Reports: no symptoms Neurologic/Psychiatric: Reports: no symptoms Subjective 57 YO F admitted with chief complaint shortness of breath. Now respiratory failure. Extubated 09/30/17-tolerating nasal canula. Cover for Int Nba-Dr Catherine Objective Last Vital Signs Date Time Temp Pulse Resp B/P (MAP) Pulse Ox O2 Delivery O2 Flow Rate FiO2 10/01/17 16:00 97.0 66 20 123/61 100 Nasal Cannula 2.0 10/01/17 06:45 28 Laboratory Tests Test 10/01/17 09:04 10/01/17 12:00 10/01/17 16:10 Arterial Blood pH 7.390 (7.350-7.450) Arterial Blood Partial Pressure CO2 49.3 mmHg (35.0-45.0) H Arterial Blood Partial Pressure O2 130.0 mmHg (75.0-100.0) H Arterial Blood HCO3 29.7 mmol/L (22.0-26.0) H Arterial Blood Oxygen Saturation 97.6 % (92.0-98.0) Arterial Blood Base Excess 4.2 Roly Test Positive White Blood Count 12.7 K/UL (4.8-10.8) H Red Blood Count 3.45 M/UL (4.20-5.40) L Hemoglobin 10.7 G/DL (12.0-16.0) L Hematocrit 31.9 % (37.0-47.0) L Mean Corpuscular Volume 92 FL (80-99) Mean Corpuscular Hemoglobin 30.8 PG (27.0-31.0) Mean Corpuscular Hemoglobin Concent 33.4 G/DL (32.0-36.0) Red Cell Distribution Width 11.5 % (11.6-14.8) L Platelet Count 445 K/UL (150-450) Mean Platelet Volume 5.2 FL (6.5-10.1) L Neutrophils (%) (Auto) 64.9 % (45.0-75.0) Lymphocytes (%) (Auto) 24.6 % (20.0-45.0) Monocytes (%) (Auto) 5.6 % (1.0-10.0) Eosinophils (%) (Auto) 4.3 % (0.0-3.0) H Basophils (%) (Auto) 0.6 % (0.0-2.0) Sodium Level 143 MMOL/L (136-145) Potassium Level 4.4 MMOL/L (3.5-5.1) Chloride Level 107 MMOL/L (98-107) Carbon Dioxide Level 29 MMOL/L (21-32) Anion Gap 7 mmol/L (5-15) Blood Urea Nitrogen 15 mg/dL (7-18) Creatinine 0.7 MG/DL (0.55-1.30) Estimat Glomerular Filtration Rate > 60 mL/min (>60) Glucose Level 88 MG/DL (74-106) Calcium Level 9.0 MG/DL (8.5-10.1) Phosphorus Level 4.1 MG/DL (2.5-4.9) Magnesium Level 2.1 MG/DL (1.8-2.4) Total Bilirubin 0.5 MG/DL (0.2-1.0) Aspartate Amino Transf (AST/SGOT) 20 U/L (15-37) Alanine Aminotransferase (ALT/SGPT) 30 U/L (12-78) Alkaline Phosphatase 92 U/L (46-116) Total Protein 7.4 G/DL (6.4-8.2) Albumin 3.0 G/DL (3.4-5.0) L Globulin 4.4 g/dL Albumin/Globulin Ratio 0.7 (1.0-2.7) L Troponin I 0.080 ng/mL (0.000-0.056) Intake and Output 09/30/17 10/01/17 19:00 07:00 Intake Total 495 ml 0 ml Output Total 775 ml 150 ml Balance -280 ml -150 ml Intake Oral 0 ml Tube Feeding 495 ml Output Urine Total 775 ml 150 ml # Voids 1 Objective General Appearance: WD/WN, moderate distress EENT: normal ENT inspection Neck: non-tender, normal alignment, supple Cardiovascular: normal peripheral pulses, normal rate, regular rhythm, no gallop/murmur, no JVD Respiratory/Chest: Nasal canula; crackles/rales, rhonchi - bilaterally, expiratory wheezing Abdomen: normal bowel sounds, non tender, soft, no organomegaly, no mass Extremities: normal range of motion, non-tender 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 (3) HTN (hypertension) (4) Hypercholesteremia (5) Respiratory failure Assessment & Plan: s/P extubation today. See pulmonary note (6) Seizure disorder Assessment & Plan: See neurology note. Cont keppra (7) Elevated troponin Assessment & Plan: See cardiology note. Status: progressing ANDREW CELESTE Oct 01, 2017 17:40
[2017-10-01 20:00] VITALS: BP 142/58
[2017-10-02] VITALS: BP 146/57
[2017-10-02 02:37] LABS: APPEARANCE,URINE CLOUDY; BILIRUBIN, URINE NEGATIVE (NEGATIVE); COLOR,URINE PALE YELLOW; GLUCOSE, URINE (UA) NEGATIVE (NEGATIVE); KETONES,URINE NEGATIVE (NEGATIVE); LEUKOCYTE ESTERASE ,URINE 3+ (NEGATIVE); NITRITE,URINE POSITIVE (NEGATIVE); PH,URINE 9 (4.5-8.0); PROTEIN,URINE 3+ (NEGATIVE); UROBILINOGEN,URINE 1 MG/DL (0.0-1.0)
[2017-10-02 04:00] VITALS: BP 114/59
[2017-10-02] MEDS: NovoLOG Insulin Flexpen SUBQ SCH ×4 (06:00→18:00)
[2017-10-02 08:06] VITALS: BP 135/53
[2017-10-02] MEDS: Pantoprazole Inj IVP SCH ×2 (09:00→20:36)
[2017-10-02] MEDS: Heparin 5000 units/ml inj SUBQ SCH ×2 (09:00→20:41)
[2017-10-02] MEDS: LEVETIRACETAM IV SCH ×2 (09:00→20:36)
[2017-10-02] MEDS: NS IV SCH ×2 (09:00→20:36)
[2017-10-02 09:20] LABS: BASOPHILS % (AUTO) 1.1 % (0.0-2.0); EOSINOPHILS % (AUTO) 5.2 % (0.0-3.0); HEMATOCRIT 30.9 % (37.0-47.0); HEMOGLOBIN 10.3 G/DL (12.0-16.0); LYMPHOCYTES % (AUTO) 23.5 % (20.0-45.0); MEAN CORPUSCULAR VOLUME 92 FL (80-99); MONOCYTES % (AUTO) 5.8 % (1.0-10.0); NEUTROPHILS % (AUTO) 64.5 % (45.0-75.0); PLATELET COUNT 420 K/UL (150-450); RED BLOOD COUNT 3.36 M/UL (4.20-5.40); RED CELL DISTRIBUTION WIDTH 11.3 % (11.6-14.8); WHITE BLOOD COUNT 9.4 K/UL (4.8-10.8)
[2017-10-02 10:29] LABS: ALANINE AMINOTRANSFERASE 33 U/L (12-78); ALBUMIN/GLOBULIN RATIO 0.8 (1.0-2.7); ALKALINE PHOSPHATASE 91 U/L (46-116); ANION GAP 10 mmol/L (5-15); ASPARTATE AMINO TRANSFERASE 27 U/L (15-37); BILIRUBIN,TOTAL 0.3 MG/DL (0.2-1.0); BLOOD UREA NITROGEN 15 mg/dL (7-18); CALCIUM 8.7 MG/DL (8.5-10.1); CARBON DIOXIDE 26 MMOL/L (21-32); CHLORIDE 105 MMOL/L (98-107); CREATININE 0.8 MG/DL (0.55-1.30); PHOSPHORUS 3.5 MG/DL (2.5-4.9); POTASSIUM 4.4 MMOL/L (3.5-5.1); SODIUM 141 MMOL/L (136-145)
--- NOTE | 2017-10-02 11:21 | Internal Med Progress Note ---
Subjective Date of Service: Oct 02, 2017 Physician Name Andrew Celeste Attending Physician Christian Catherine MD Current Medications Medications (Trade) Dose Ordered Sig/Xander Route PRN Reason Start Time Stop Time Status Last Admin Dose Admin Acetaminophen (Tylenol) 650 mg Q4H PRN ORAL Fever 09/30/17 18:00 10/26/17 17:59 Albuterol/ Ipratropium (Albuterol/ Ipratropium) 3 ml Q4H PRN HHN Shortness of Breath 09/30/17 18:00 10/05/17 17:59 Dextrose (Dextrose 50%) STAT PRN IV Hypoglycemia 09/30/17 18:00 10/30/17 17:59 Heparin Sodium (Porcine) (Heparin 5000 units/ml) 5,000 units EVERY 12 HOURS SUBQ 09/30/17 21:00 10/27/17 08:59 10/01/17 21:22 Insulin Aspart (NovoLOG) EVERY 6 HOURS SUBQ 09/30/17 18:45 10/27/17 18:44 10/01/17 18:03 Levetiracetam 1500 mg/Sodium Chloride 125 ml @ 245 mls/hr Q12HR IV 09/30/17 21:00 10/27/17 11:59 10/02/17 09:00 Lorazepam (Ativan 2mg/ml 1ml) 2 mg Q2H PRN IV agitation 09/30/17 18:00 10/07/17 17:59 Morphine Sulfate (Morphine Sulfate) 4 mg Q4H PRN IVP Severe Pain (Pain Scale 7-10) 09/30/17 18:00 10/07/17 17:59 Nitroglycerin (Ntg) 0.4 mg Q5MIN PRN SL Prn Chest Pain 09/30/17 18:00 10/30/17 17:59 Ondansetron HCl (Zofran) 4 mg Q6H PRN IVP Nausea & Vomiting 09/30/17 18:15 10/26/17 18:14 10/01/17 14:51 Pantoprazole (Protonix) 40 mg EVERY 12 HOURS IVP 09/30/17 21:00 10/27/17 20:59 10/02/17 09:00 Allergies: Coded Allergies: No Known Allergies (Unverified , 01/14/17) ROS Limited/Unobtainable: No Constitutional: Reports: no symptoms HEENT: Reports: throat pain Cardiovascular: Reports: no symptoms Respiratory: Reports: no symptoms Gastrointestinal/Abdominal: Reports: no symptoms Genitourinary: Reports: no symptoms Neurologic/Psychiatric: Reports: no symptoms Subjective 57 YO F admitted with chief complaint shortness of breath. Now respiratory failure; Extubated 09/30/17-tolerating nasal canula. C/O throat pain. Cover for Int Nba-Dr Catherine Objective Last Vital Signs Date Time Temp Pulse Resp B/P (MAP) Pulse Ox O2 Delivery O2 Flow Rate FiO2 10/02/17 10:20 Room Air 10/02/17 10:19 69 16 10/02/17 10:19 100 10/02/17 08:06 97.3 135/53 10/01/17 21:08 1.0 24 Laboratory Tests Test 10/01/17 12:00 10/01/17 16:10 10/02/17 02:00 10/02/17 08:20 White Blood Count 12.7 K/UL (4.8-10.8) H 9.4 K/UL (4.8-10.8) Red Blood Count 3.45 M/UL (4.20-5.40) L 3.36 M/UL (4.20-5.40) L Hemoglobin 10.7 G/DL (12.0-16.0) L 10.3 G/DL (12.0-16.0) L Hematocrit 31.9 % (37.0-47.0) L 30.9 % (37.0-47.0) L Mean Corpuscular Volume 92 FL (80-99) 92 FL (80-99) Mean Corpuscular Hemoglobin 30.8 PG (27.0-31.0) 30.7 PG (27.0-31.0) Mean Corpuscular Hemoglobin Concent 33.4 G/DL (32.0-36.0) 33.3 G/DL (32.0-36.0) Red Cell Distribution Width 11.5 % (11.6-14.8) L 11.3 % (11.6-14.8) L Platelet Count 445 K/UL (150-450) 420 K/UL (150-450) Mean Platelet Volume 5.2 FL (6.5-10.1) L 5.0 FL (6.5-10.1) L Neutrophils (%) (Auto) 64.9 % (45.0-75.0) 64.5 % (45.0-75.0) Lymphocytes (%) (Auto) 24.6 % (20.0-45.0) 23.5 % (20.0-45.0) Monocytes (%) (Auto) 5.6 % (1.0-10.0) 5.8 % (1.0-10.0) Eosinophils (%) (Auto) 4.3 % (0.0-3.0) H 5.2 % (0.0-3.0) H Basophils (%) (Auto) 0.6 % (0.0-2.0) 1.1 % (0.0-2.0) Sodium Level 143 MMOL/L (136-145) 141 MMOL/L (136-145) Potassium Level 4.4 MMOL/L (3.5-5.1) 4.4 MMOL/L (3.5-5.1) Chloride Level 107 MMOL/L (98-107) 105 MMOL/L (98-107) Carbon Dioxide Level 29 MMOL/L (21-32) 26 MMOL/L (21-32) Anion Gap 7 mmol/L (5-15) 10 mmol/L (5-15) Blood Urea Nitrogen 15 mg/dL (7-18) 15 mg/dL (7-18) Creatinine 0.7 MG/DL (0.55-1.30) 0.8 MG/DL (0.55-1.30) Estimat Glomerular Filtration Rate > 60 mL/min (>60) > 60 mL/min (>60) Glucose Level 88 MG/DL (74-106) 170 MG/DL (74-106) H Calcium Level 9.0 MG/DL (8.5-10.1) 8.7 MG/DL (8.5-10.1) Phosphorus Level 4.1 MG/DL (2.5-4.9) 3.5 MG/DL (2.5-4.9) Magnesium Level 2.1 MG/DL (1.8-2.4) 2.0 MG/DL (1.8-2.4) Total Bilirubin 0.5 MG/DL (0.2-1.0) 0.3 MG/DL (0.2-1.0) Aspartate Amino Transf (AST/SGOT) 20 U/L (15-37) 27 U/L (15-37) Alanine Aminotransferase (ALT/SGPT) 30 U/L (12-78) 33 U/L (12-78) Alkaline Phosphatase 92 U/L (46-116) 91 U/L (46-116) Total Protein 7.4 G/DL (6.4-8.2) 6.6 G/DL (6.4-8.2) Albumin 3.0 G/DL (3.4-5.0) L 3.0 G/DL (3.4-5.0) L Globulin 4.4 g/dL 3.6 g/dL Albumin/Globulin Ratio 0.7 (1.0-2.7) L 0.8 (1.0-2.7) L Troponin I 0.080 ng/mL (0.000-0.056) 0.067 ng/mL (0.000-0.056) Urine Color Pale yellow Urine Appearance Cloudy Urine pH 9 (4.5-8.0) Urine Specific [place] 1.015 (1.005-1.035) Urine Protein 3+ (NEGATIVE) H Urine Glucose (UA) Negative (NEGATIVE) Urine Ketones Negative (NEGATIVE) Urine Occult Blood 5+ (NEGATIVE) H Urine Nitrite Positive (NEGATIVE) H Urine Bilirubin Negative (NEGATIVE) Urine Urobilinogen 1 MG/DL (0.0-1.0) H Urine Leukocyte Esterase 3+ (NEGATIVE) H Urine RBC 5-10 /HPF (0 - 2) H Urine WBC 40-60 /HPF (0 - 2) H Urine Squamous Epithelial Cells Few /LPF (NONE/OCC) Urine Triple Phosphate Crystals Many /LPF (NONE) H Urine Bacteria Few /HPF (NONE) Erythrocyte Sedimentation Rate 117 MM/HR (0-30) H C-Reactive Protein, Quantitative 8.1 mg/dL (0.00-0.90) H Intake and Output 10/01/17 10/02/17 19:00 07:00 Intake Total 595 ml 320 ml Output Total 600 ml 700 ml Balance -5 ml -380 ml Intake Oral 350 ml 320 ml IV Total 245 ml Output Urine Total 600 ml 700 ml Objective General Appearance: WD/WN, moderate distress EENT: normal ENT inspection Neck: non-tender, normal alignment, supple Cardiovascular: normal peripheral pulses, normal rate, regular rhythm, no gallop/murmur, no JVD Respiratory/Chest: Nasal canula; crackles/rales, rhonchi - bilaterally, expiratory wheezing Abdomen: normal bowel sounds, non tender, soft, no organomegaly, no mass Extremities: normal range of motion, non-tender 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 (3) HTN (hypertension) (4) Hypercholesteremia (5) Respiratory failure Assessment & Plan: s/P extubation today. See pulmonary note (6) Seizure disorder Assessment & Plan: See neurology note. Cont keppra (7) Elevated troponin Assessment & Plan: See cardiology note. (8) Sore throat Assessment & Plan: ?due to endotracheal tube? Cepacol lozenges and neck xray Status: progressing ANDREW CELESTE Oct 02, 2017 11:21
[2017-10-02 11:48] VITALS: BP 144/53
--- NOTE | 2017-10-02 13:39 | Infectious Diseases Prog Note ---
Assessment/Plan Assessment/Plan Abx: None Assessment: Recurrent Seizure Mild leukocytosis, probably reactive- now resolved- no evidence of infectious process -CXR 10/01: Interstitial congestion is probably stable -2/1 u/a neg; Bcx Neg -u/a wbc 40-60, nit +, leuk +3; ucx p; NO UTI symptoms DM2 HTN GERD subarachnoid hemorrhage 2ry to rupture cerebral aneurysm s/p craionotomy and aneurysm clip 2015 Plan: -Continue to monitor off abx, unless febrile or recurrent leukocytosis -f/u cx -[place] CBC/BMP, temperatures Thank you for this consultation. Will continue to follow along with you. Discussed with RN. Subjective Allergies: Coded Allergies: No Known Allergies (Unverified , 01/14/17) Subjective afebrile leukocytosis resolved off abx Objective Vital Signs Last 24 Hour Vital Signs Date Time Temp Pulse Resp B/P (MAP) Pulse Ox O2 Delivery O2 Flow Rate FiO2 10/02/17 11:48 98.1 72 19 144/53 96 10/02/17 10:20 Room Air 10/02/17 10:19 69 16 Room Air 10/02/17 10:19 100 10/02/17 08:06 97.3 70 20 135/53 100 10/02/17 04:00 98.2 61 20 114/59 100 10/02/17 00:00 98.1 69 20 146/57 100 10/01/17 21:08 Nasal Cannula 1.0 24 10/01/17 21:08 96 Nasal Cannula 1.0 24 10/01/17 21:08 85 16 Nasal Cannula 1.0 24 10/01/17 20:00 97.4 74 19 142/58 100 10/01/17 16:00 97.0 66 20 123/61 100 Nasal Cannula 2.0 Height (Feet): 5 Height (Inches): 0.00 Weight (Pounds): 145 Objective General Appearance: WD/WN EENT: normal ENT inspection Neck: non-tender, normal alignment, supple Cardiovascular: normal peripheral pulses, normal rate, regular rhythm, no gallop/murmur, no JVD Respiratory/Chest: lungs clear Abdomen: normal bowel sounds, non tender, soft, no organomegaly, no mass Extremities: normal range of motion, non-tender 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 Skin: normal pigmentation, warm/dry Laboratory Tests Test 2/6/18 16:10 10/02/17 02:00 10/02/17 08:20 Troponin I 0.080 ng/mL (0.000-0.056) 0.067 ng/mL (0.000-0.056) Urine Color Pale yellow Urine Appearance Cloudy Urine pH 9 (4.5-8.0) Urine Specific [place] 1.015 (1.005-1.035) Urine Protein 3+ (NEGATIVE) H Urine Glucose (UA) Negative (NEGATIVE) Urine Ketones Negative (NEGATIVE) Urine Occult Blood 5+ (NEGATIVE) H Urine Nitrite Positive (NEGATIVE) H Urine Bilirubin Negative (NEGATIVE) Urine Urobilinogen 1 MG/DL (0.0-1.0) H Urine Leukocyte Esterase 3+ (NEGATIVE) H Urine RBC 5-10 /HPF (0 - 2) H Urine WBC 40-60 /HPF (0 - 2) H Urine Squamous Epithelial Cells Few /LPF (NONE/OCC) Urine Triple Phosphate Crystals Many /LPF (NONE) H Urine Bacteria Few /HPF (NONE) White Blood Count 9.4 K/UL (4.8-10.8) Red Blood Count 3.36 M/UL (4.20-5.40) L Hemoglobin 10.3 G/DL (12.0-16.0) L Hematocrit 30.9 % (37.0-47.0) L Mean Corpuscular Volume 92 FL (80-99) Mean Corpuscular Hemoglobin 30.7 PG (27.0-31.0) Mean Corpuscular Hemoglobin Concent 33.3 G/DL (32.0-36.0) Red Cell Distribution Width 11.3 % (11.6-14.8) L Platelet Count 420 K/UL (150-450) Mean Platelet Volume 5.0 FL (6.5-10.1) L Neutrophils (%) (Auto) 64.5 % (45.0-75.0) Lymphocytes (%) (Auto) 23.5 % (20.0-45.0) Monocytes (%) (Auto) 5.8 % (1.0-10.0) Eosinophils (%) (Auto) 5.2 % (0.0-3.0) H Basophils (%) (Auto) 1.1 % (0.0-2.0) Erythrocyte Sedimentation Rate 117 MM/HR (0-30) H Sodium Level 141 MMOL/L (136-145) Potassium Level 4.4 MMOL/L (3.5-5.1) Chloride Level 105 MMOL/L (98-107) Carbon Dioxide Level 26 MMOL/L (21-32) Anion Gap 10 mmol/L (5-15) Blood Urea Nitrogen 15 mg/dL (7-18) Creatinine 0.8 MG/DL (0.55-1.30) Estimat Glomerular Filtration Rate > 60 mL/min (>60) Glucose Level 170 MG/DL (74-106) H Calcium Level 8.7 MG/DL (8.5-10.1) Phosphorus Level 3.5 MG/DL (2.5-4.9) Magnesium Level 2.0 MG/DL (1.8-2.4) Total Bilirubin 0.3 MG/DL (0.2-1.0) Aspartate Amino Transf (AST/SGOT) 27 U/L (15-37) Alanine Aminotransferase (ALT/SGPT) 33 U/L (12-78) Alkaline Phosphatase 91 U/L (46-116) C-Reactive Protein, Quantitative 8.1 mg/dL (0.00-0.90) H Total Protein 6.6 G/DL (6.4-8.2) Albumin 3.0 G/DL (3.4-5.0) L Globulin 3.6 g/dL Albumin/Globulin Ratio 0.8 (1.0-2.7) L Current Medications Medications (Trade) Dose Ordered Sig/Xander Route PRN Reason Start Time Stop Time Status Last Admin Dose Admin Acetaminophen (Tylenol) 650 mg Q4H PRN ORAL Fever 09/30/17 18:00 10/26/17 17:59 Albuterol/ Ipratropium (Albuterol/ Ipratropium) 3 ml Q4H PRN HHN Shortness of Breath 09/30/17 18:00 10/05/17 17:59 Cetylpyridinium Chloride (Cepacol) 1 lozg Q2H PRN ILENE Throat Pain 10/02/17 11:30 11/01/17 11:14 10/02/17 11:31 Dextrose (Dextrose 50%) STAT PRN IV Hypoglycemia 09/30/17 18:00 3/7/18 17:59 Heparin Sodium (Porcine) (Heparin 5000 units/ml) 5,000 units EVERY 12 HOURS SUBQ 09/30/17 21:00 10/27/17 08:59 10/01/17 21:22 Insulin Aspart (NovoLOG) EVERY 6 HOURS SUBQ 09/30/17 18:45 10/27/17 18:44 10/01/17 18:03 Levetiracetam 1500 mg/Sodium Chloride 125 ml @ 245 mls/hr Q12HR IV 09/30/17 21:00 10/27/17 11:59 10/02/17 09:00 Lorazepam (Ativan 2mg/ml 1ml) 2 mg Q2H PRN IV agitation 09/30/17 18:00 10/07/17 17:59 Morphine Sulfate (Morphine Sulfate) 4 mg Q4H PRN IVP Severe Pain (Pain Scale 7-10) 09/30/17 18:00 10/07/17 17:59 Nitroglycerin (Ntg) 0.4 mg Q5MIN PRN SL Prn Chest Pain 09/30/17 18:00 10/30/17 17:59 Ondansetron HCl (Zofran) 4 mg Q6H PRN IVP Nausea & Vomiting 09/30/17 18:15 10/26/17 18:14 10/01/17 14:51 Pantoprazole (Protonix) 40 mg EVERY 12 HOURS IVP 09/30/17 21:00 10/27/17 20:59 10/02/17 09:00 Lindsey Alberto M.D. Oct 02, 2017 13:39
--- NOTE | 2017-10-02 14:36 | Pulmonology Progress Note ---
Assessment/Plan Problems: (1) Respiratory failure (2) Altered mental status (3) HTN (hypertension) (4) Diabetes mellitus, type II (5) Seizure disorder Assessment/Plan pt/ pt advance diet check wbc, ? eitology, ID called, WBC wnl dvt prophyalxis seizure meds. urinary retention, lechuga is in dc planning soon Subjective ROS Limited/Unobtainable: No Constitutional: Reports: no symptoms Allergies: Coded Allergies: No Known Allergies (Unverified , 01/14/17) Objective Last 24 Hour Vital Signs Date Time Temp Pulse Resp B/P (MAP) Pulse Ox O2 Delivery O2 Flow Rate FiO2 10/02/17 11:48 98.1 72 19 144/53 96 10/02/17 10:20 Room Air 10/02/17 10:19 69 16 Room Air 10/02/17 10:19 100 10/02/17 08:06 97.3 70 20 135/53 100 10/02/17 04:00 98.2 61 20 114/59 100 10/02/17 00:00 98.1 69 20 146/57 100 10/01/17 21:08 Nasal Cannula 1.0 24 10/01/17 21:08 96 Nasal Cannula 1.0 24 10/01/17 21:08 85 16 Nasal Cannula 1.0 24 10/01/17 20:00 97.4 74 19 142/58 100 10/01/17 16:00 97.0 66 20 123/61 100 Nasal Cannula 2.0 Intake and Output 10/01/17 10/02/17 19:00 07:00 Intake Total 595 ml 320 ml Output Total 600 ml 700 ml Balance -5 ml -380 ml Intake Oral 350 ml 320 ml IV Total 245 ml Output Urine Total 600 ml 700 ml General Appearance: WD/WN HEENT: normocephalic, atraumatic Respiratory/Chest: chest wall non-tender Breasts: no masses Cardiovascular: normal peripheral pulses Abdomen: normal bowel sounds, no organomegaly Genitourinary: normal external genitalia Extremities: no clubbing Skin: no lesions Laboratory Tests 10/01/17 16:10: Troponin I 0.080H 10/02/17 02:00: Urine Color Pale yellow, Urine Appearance Cloudy, Urine pH 9, Urine Specific [place] 1.015, Urine Protein 3+H, Urine Glucose (UA) Negative, Urine Ketones Negative, Urine Occult Blood 5+H, Urine Nitrite PositiveH, Urine Bilirubin Negative, Urine Urobilinogen 1H, Urine Leukocyte Esterase 3+H, Urine RBC 5-10H, Urine WBC 40-60H, Urine Squamous Epithelial Cells Few, Urine Triple Phosphate Crystals ManyH, Urine Bacteria Few 10/02/17 08:20: Troponin I 0.067H, White Blood Count 9.4, Red Blood Count 3.36L, Hemoglobin 10.3L, Hematocrit 30.9L, Mean Corpuscular Volume 92, Mean Corpuscular Hemoglobin 30.7, Mean Corpuscular Hemoglobin Concent 33.3, Red Cell Distribution Width 11.3L, Platelet Count 420, Mean Platelet Volume 5.0L, Neutrophils (%) (Auto) 64.5, Lymphocytes (%) (Auto) 23.5, Monocytes (%) (Auto) 5.8, Eosinophils (%) (Auto) 5.2H, Basophils (%) (Auto) 1.1, Erythrocyte Sedimentation Rate 117H, Sodium Level 141, Potassium Level 4.4, Chloride Level 105, Carbon Dioxide Level 26, Anion Gap 10, Blood Urea Nitrogen 15, Creatinine 0.8, Estimat Glomerular Filtration Rate > 60, Glucose Level 170H, Calcium Level 8.7, Phosphorus Level 3.5, Magnesium Level 2.0, Total Bilirubin 0.3, Aspartate Amino Transf (AST/SGOT) 27, Alanine Aminotransferase (ALT/SGPT) 33, Alkaline Phosphatase 91, C-Reactive Protein, Quantitative 8.1H, Total Protein 6.6, Albumin 3.0L, Globulin 3.6, Albumin/Globulin Ratio 0.8L Current Medications Medications (Trade) Dose Ordered Sig/Xander Route PRN Reason Start Time Stop Time Status Last Admin Dose Admin Acetaminophen (Tylenol) 650 mg Q4H PRN ORAL Fever 09/30/17 18:00 10/26/17 17:59 Albuterol/ Ipratropium (Albuterol/ Ipratropium) 3 ml Q4H PRN HHN Shortness of Breath 09/30/17 18:00 10/05/17 17:59 Cetylpyridinium Chloride (Cepacol) 1 lozg Q2H PRN ILENE Throat Pain 10/02/17 11:30 11/01/17 11:14 10/02/17 11:31 Dextrose (Dextrose 50%) STAT PRN IV Hypoglycemia 09/30/17 18:00 10/30/17 17:59 Heparin Sodium (Porcine) (Heparin 5000 units/ml) 5,000 units EVERY 12 HOURS SUBQ 09/30/17 21:00 10/27/17 08:59 10/01/17 21:22 Insulin Aspart (NovoLOG) EVERY 6 HOURS SUBQ 09/30/17 18:45 10/27/17 18:44 10/01/17 18:03 Levetiracetam 1500 mg/Sodium Chloride 125 ml @ 245 mls/hr Q12HR IV 09/30/17 21:00 10/27/17 11:59 10/02/17 09:00 Lorazepam (Ativan 2mg/ml 1ml) 2 mg Q2H PRN IV agitation 09/30/17 18:00 10/07/17 17:59 Morphine Sulfate (Morphine Sulfate) 4 mg Q4H PRN IVP Severe Pain (Pain Scale 7-10) 09/30/17 18:00 10/07/17 17:59 Nitroglycerin (Ntg) 0.4 mg Q5MIN PRN SL Prn Chest Pain 09/30/17 18:00 10/30/17 17:59 Ondansetron HCl (Zofran) 4 mg Q6H PRN IVP Nausea & Vomiting 09/30/17 18:15 10/26/17 18:14 10/01/17 14:51 Pantoprazole (Protonix) 40 mg EVERY 12 HOURS IVP 09/30/17 21:00 10/27/17 20:59 10/02/17 09:00 FARRUKH VALDEZ Oct 02, 2017 14:36
--- NOTE | 2017-10-02 15:45 | Diagnostic Imaging Report ---
Indication: Cough Technique: One view of the chest Comparison: 10/01/2017 Findings: The heart is enlarged. Borderline interstitial congestive changes persist. Pleural spaces remain clear. Findings are unchanged Impression: Unchanged, over one day, findings as above.
--- NOTE | 2017-10-02 15:49 | Diagnostic Imaging Report ---
Indication: Or pain due to endotracheal tube Technique: 2 views of the neck with soft tissue technique Comparison: none Findings: There is mild distention of the hypopharynx. There is mild thickening of the epiglottis. There is suggestion of narrowing of the air column of the trachea at the level of the thoracic inlet on the AP view. No radiopaque foreign body Impression: Mild hypopharyngeal distention and epiglottic thickening, significance uncertain, possibly reactive related to recent endotracheal intubation Possible stricture of the mid trachea. Consider CT to confirm if clinically indicated
[2017-10-02 16:01] VITALS: BP 118/75
--- NOTE | 2017-10-02 17:16 | Cardiology Report ---
APPROVED REPORT EKG Measurement Heart [id number] Normal sinus rhythm T wave abnormality, consider anterolateral ischemia Prolonged QT Abnormal ECG
[2017-10-02 20:17] VITALS: BP 148/55
[2017-10-03 00:40] VITALS: BP 153/71
[2017-10-03 04:34] VITALS: BP 152/61
[2017-10-03] MEDS: NovoLOG Insulin Flexpen SUBQ SCH ×4 (06:00→18:31)
[2017-10-03 07:53] LABS: BASOPHILS % (AUTO) 0.5 % (0.0-2.0); EOSINOPHILS % (AUTO) 4.8 % (0.0-3.0); HEMATOCRIT 31.8 % (37.0-47.0); HEMOGLOBIN 11.3 G/DL (12.0-16.0); LYMPHOCYTES % (AUTO) 25.3 % (20.0-45.0); MEAN CORPUSCULAR VOLUME 91 FL (80-99); MONOCYTES % (AUTO) 5.3 % (1.0-10.0); NEUTROPHILS % (AUTO) 64.1 % (45.0-75.0); PLATELET COUNT 502 K/UL (150-450); RED CELL DISTRIBUTION WIDTH 11.4 % (11.6-14.8); WHITE BLOOD COUNT 10.3 K/UL (4.8-10.8)
[2017-10-03 07:56] LABS: ANION GAP 6 mmol/L (5-15); BLOOD UREA NITROGEN 14 mg/dL (7-18); CARBON DIOXIDE 31 MMOL/L (21-32); CHLORIDE 104 MMOL/L (98-107); CREATININE 0.8 MG/DL (0.55-1.30); POTASSIUM 3.7 MMOL/L (3.5-5.1); SODIUM 141 MMOL/L (136-145)
[2017-10-03 08:00] VITALS: BP 156/69
[2017-10-03] MEDS: Pantoprazole Inj IVP SCH (09:09)
[2017-10-03] MEDS: Heparin 5000 units/ml inj SUBQ SCH ×2 (09:11→20:59)
[2017-10-03] MEDS: NS IV SCH (09:13)
[2017-10-03] MEDS: LEVETIRACETAM IV SCH (09:13)
[2017-10-03 12:00] VITALS: BP 143/63
--- NOTE | 2017-10-03 13:04 | Internal Med Progress Note ---
Subjective Date of Service: Oct 03, 2017 Physician Name Andrew Celeste Attending Physician Christian Catherine MD Current Medications Medications (Trade) Dose Ordered Sig/Xander Route PRN Reason Start Time Stop Time Status Last Admin Dose Admin Acetaminophen (Tylenol) 650 mg Q4H PRN ORAL Fever 09/30/17 18:00 10/26/17 17:59 Albuterol/ Ipratropium (Albuterol/ Ipratropium) 3 ml Q4H PRN HHN Shortness of Breath 09/30/17 18:00 10/05/17 17:59 Cetylpyridinium Chloride (Cepacol) 1 lozg Q2H PRN ILENE Throat Pain 10/02/17 11:30 11/01/17 11:14 10/02/17 18:07 Dextrose (Dextrose 50%) STAT PRN IV Hypoglycemia 09/30/17 18:00 10/30/17 17:59 Heparin Sodium (Porcine) (Heparin 5000 units/ml) 5,000 units EVERY 12 HOURS SUBQ 09/30/17 21:00 10/27/17 08:59 10/03/17 09:11 Insulin Aspart (NovoLOG) EVERY 6 HOURS SUBQ 09/30/17 18:45 10/27/17 18:44 10/01/17 18:03 Levetiracetam (Keppra) 1,500 mg Q12HR ORAL 10/03/17 21:00 11/02/17 20:59 Lorazepam (Ativan 2mg/ml 1ml) 2 mg Q2H PRN IV agitation 09/30/17 18:00 10/07/17 17:59 Morphine Sulfate (Morphine Sulfate) 4 mg Q4H PRN IVP Severe Pain (Pain Scale 7-10) 09/30/17 18:00 10/07/17 17:59 Nitroglycerin (Ntg) 0.4 mg Q5MIN PRN SL Prn Chest Pain 09/30/17 18:00 10/30/17 17:59 Ondansetron HCl (Zofran) 4 mg Q6H PRN IVP Nausea & Vomiting 09/30/17 18:15 10/26/17 18:14 10/01/17 14:51 Pantoprazole (Protonix) 40 mg EVERY 12 HOURS ORAL 10/03/17 21:00 11/02/17 20:59 Allergies: Coded Allergies: No Known Allergies (Unverified , 01/14/17) ROS Limited/Unobtainable: No Constitutional: Reports: no symptoms HEENT: Reports: no symptoms Cardiovascular: Reports: no symptoms Respiratory: Reports: shortness of breath Gastrointestinal/Abdominal: Reports: no symptoms Genitourinary: Reports: no symptoms Neurologic/Psychiatric: Reports: no symptoms Subjective 57 YO F admitted with chief complaint shortness of breath. Now respiratory failure; Extubated 09/30/17-tolerating room air. C/O throat pain. Cover for Int N[facility]-Dr Catherine Objective Last Vital Signs Date Time Temp Pulse Resp B/P (MAP) Pulse Ox O2 Delivery O2 Flow Rate FiO2 10/03/17 12:00 98.4 72 19 143/63 98 10/02/17 22:57 Room Air 21 10/01/17 21:08 1.0 Laboratory Tests Test 10/03/17 05:57 White Blood Count 10.3 K/UL (4.8-10.8) Red Blood Count 3.50 M/UL (4.20-5.40) L Hemoglobin 11.3 G/DL (12.0-16.0) L Hematocrit 31.8 % (37.0-47.0) L Mean Corpuscular Volume 91 FL (80-99) Mean Corpuscular Hemoglobin 32.3 PG (27.0-31.0) H Mean Corpuscular Hemoglobin Concent 35.5 G/DL (32.0-36.0) Red Cell Distribution Width 11.4 % (11.6-14.8) L Platelet Count 502 K/UL (150-450) H Mean Platelet Volume 5.1 FL (6.5-10.1) L Neutrophils (%) (Auto) 64.1 % (45.0-75.0) Lymphocytes (%) (Auto) 25.3 % (20.0-45.0) Monocytes (%) (Auto) 5.3 % (1.0-10.0) Eosinophils (%) (Auto) 4.8 % (0.0-3.0) H Basophils (%) (Auto) 0.5 % (0.0-2.0) Sodium Level 141 MMOL/L (136-145) Potassium Level 3.7 MMOL/L (3.5-5.1) Chloride Level 104 MMOL/L (98-107) Carbon Dioxide Level 31 MMOL/L (21-32) Anion Gap 6 mmol/L (5-15) Blood Urea Nitrogen 14 mg/dL (7-18) Creatinine 0.8 MG/DL (0.55-1.30) Estimat Glomerular Filtration Rate > 60 mL/min (>60) Glucose Level 84 MG/DL (74-106) Calcium Level 9.0 MG/DL (8.5-10.1) Microbiology Date/Time Source Procedure Growth Status 10/02/17 02:00 Urine,Clean Catch Urine Culture - Preliminary Gram Negative Bacillus 1 Resulted Intake and Output 10/02/17 10/03/17 19:00 07:00 Intake Total 1075 ml 240 ml Output Total 1800 ml Balance 1075 ml -1560 ml Intake Oral 950 ml 240 ml IV Total 125 ml Output Urine Total 1800 ml Objective General Appearance: WD/WN, moderate distress EENT: normal ENT inspection Neck: non-tender, normal alignment, supple Cardiovascular: normal peripheral pulses, normal rate, regular rhythm, no gallop/murmur, no JVD Respiratory/Chest: room air; crackles/rales, rhonchi - bilaterally, expiratory wheezing Abdomen: normal bowel sounds, non tender, soft, no organomegaly, no mass Extremities: normal range of motion, non-tender 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 (3) HTN (hypertension) (4) Hypercholesteremia (5) Respiratory failure Assessment & Plan: s/P extubation today. See pulmonary note (6) Seizure disorder Assessment & Plan: See neurology note. Cont keppra (7) Elevated troponin Assessment & Plan: See cardiology note. (8) Sore throat Assessment & Plan: See neck xray-await CT neck. Cepacol lozenges prn Status: not improved Assessment/Plan Discharge planning: Home health ANDREW CELESTE Oct 03, 2017 13:04
[2017-10-03 14:58] LABS: BASOPHILS % (AUTO) 1.1 % (0.0-2.0); EOSINOPHILS % (AUTO) 5.3 % (0.0-3.0); HEMATOCRIT 31.8 % (37.0-47.0); HEMOGLOBIN 10.9 G/DL (12.0-16.0); LYMPHOCYTES % (AUTO) 28.8 % (20.0-45.0); MEAN CORPUSCULAR VOLUME 90 FL (80-99); MONOCYTES % (AUTO) 7.3 % (1.0-10.0); NEUTROPHILS % (AUTO) 57.4 % (45.0-75.0); PLATELET COUNT 491 K/UL (150-450); RED BLOOD COUNT 3.54 M/UL (4.20-5.40); RED CELL DISTRIBUTION WIDTH 11.1 % (11.6-14.8); WHITE BLOOD COUNT 8.8 K/UL (4.8-10.8)
[2017-10-03 16:00] VITALS: BP 153/60
[2017-10-03] MEDS ORDERED: Tubing IV Secondary IV ONE (18:42)
[2017-10-03 20:00] VITALS: BP 150/73
--- NOTE | 2017-10-03 20:41 | Diagnostic Imaging Report ---
Indication: Swelling, tracheal stenosis Technique: CT soft tissue neck was performed utilizing automated exposure control with intravenous contrast material. Axial, sagittal and coronal images were generated. CT dose: Total DLP 581 mGycm; CTDI vol 2.3, 8.1, 40.6, 20.1 mGy Comparison: Correlation made to soft tissue neck radiographs 10/02/17 Findings: Motion degraded exam. There is focal stenosis of the trachea just below the level of the thyroid gland, with portions of the trachea narrowed to as little as 5 mm diameter (series 5 image #49). There is slight prominence of the surrounding soft tissues of the visceral space at this level, slightly asymmetric on the right, possibly related to edema or granulation tissue given history of intubation. No well-defined/drainable fluid collection is identified. The remainder of the airway is patent. There are small cervical lymph nodes, none which are pathologically enlarged by imaging size criteria. Imaged vasculature patent. There is a 2 mm low-attenuation nodule in the right thyroid. Patchy opacities and septal thickening noted in the upper lungs. No acute osseous abnormality seen. IMPRESSION: Limited, motion degraded exam. Focal tracheal stenosis in the lower cervical/upper thoracic trachea as above. Slight prominence of the surrounding soft tissues of the visceral space, slightly asymmetric on the right. Findings possibly related to edema or granulation given history of intubation. No well-defined drainable fluid collection identified. Given asymmetry of findings, follow-up exam is recommended to exclude the less likely possibility of mass/neoplasm. Septal thickening and patchy airspace opacities, right greater than left, partially visualized in the upper lungs. The CT scanner at [facility] is accredited by the [employer] and the scans are performed using protocols designed to limit radiation exposure to as low as reasonably achievable to attain images of sufficient resolution adequate for diagnostic evaluation.
--- NOTE | 2017-10-03 23:19 | Pulmonology Progress Note ---
Assessment/Plan Problems: (1) Respiratory failure (2) Altered mental status (3) HTN (hypertension) (4) Diabetes mellitus, type II (5) Seizure disorder Assessment/Plan pt/ pt advance diet dvt prophyalxis seizure meds. urination better dc planning soon Subjective ROS Limited/Unobtainable: No Allergies: Coded Allergies: No Known Allergies (Unverified , 01/14/17) Objective Last 24 Hour Vital Signs Date Time Temp Pulse Resp B/P (MAP) Pulse Ox O2 Delivery O2 Flow Rate FiO2 10/03/17 20:00 98.3 70 19 150/73 94 10/03/17 16:00 98.1 72 20 153/60 97 10/03/17 14:14 86 18 Room Air 21 10/03/17 14:14 Room Air 21 10/03/17 14:14 97 Room Air 21 10/03/17 12:00 98.4 72 19 143/63 98 10/03/17 08:00 98.7 82 20 156/69 95 10/03/17 04:34 97.9 79 19 152/61 97 10/03/17 00:40 98.8 89 18 153/71 93 Intake and Output 10/02/17 10/03/17 19:00 07:00 Intake Total 1075 ml 240 ml Output Total 1800 ml Balance 1075 ml -1560 ml Intake Oral 950 ml 240 ml IV Total 125 ml Output Urine Total 1800 ml Objective General Appearance: WD/WN Lines, tubes and drains: peripheral HEENT: normocephalic, atraumatic Neck: non-tender, normal alignment Respiratory/Chest: chest wall non-tender, lungs clear Cardiovascular/Chest: normal peripheral pulses, normal rate Abdomen: normal bowel sounds, non tender Genitourinary/Rectal: normal genital exam Extremities: normal range of motion, non-tender Skin Exam: normal pigmentation 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 Microbiology Date/Time Source Procedure Growth Status 10/02/17 02:00 Urine,Clean Catch Urine Culture - Preliminary Gram Negative Bacillus 1 Resulted Laboratory Tests 10/03/17 05:57: White Blood Count 10.3, Red Blood Count 3.50L, Hemoglobin 11.3L, Hematocrit 31.8L, Mean Corpuscular Volume 91, Mean Corpuscular Hemoglobin 32.3H, Mean Corpuscular Hemoglobin Concent 35.5, Red Cell Distribution Width 11.4L, Platelet Count 502H, Mean Platelet Volume 5.1L, Neutrophils (%) (Auto) 64.1, Lymphocytes (%) (Auto) 25.3, Monocytes (%) (Auto) 5.3, Eosinophils (%) (Auto) 4.8H, Basophils (%) (Auto) 0.5, Sodium Level 141, Potassium Level 3.7, Chloride Level 104, Carbon Dioxide Level 31, Anion Gap 6, Blood Urea Nitrogen 14, Creatinine 0.8, Estimat Glomerular Filtration Rate > 60, Glucose Level 84, Calcium Level 9.0 10/03/17 14:00: White Blood Count 8.8, Red Blood Count 3.54L, Hemoglobin 10.9L, Hematocrit 31.8L , Mean Corpuscular Volume 90, Mean Corpuscular Hemoglobin 30.9, Mean Corpuscular Hemoglobin Concent 34.4, Red Cell Distribution Width 11.1L, Platelet Count 491H, Mean Platelet Volume 5.0L, Neutrophils (%) (Auto) 57.4, Lymphocytes (%) (Auto) 28.8, Monocytes (%) (Auto) 7.3, Eosinophils (%) (Auto) 5.3H, Basophils (%) (Auto) 1.1 Current Medications Medications (Trade) Dose Ordered Sig/Xander Route PRN Reason Start Time Stop Time Status Last Admin Dose Admin Acetaminophen (Tylenol) 650 mg Q4H PRN ORAL Fever 09/30/17 18:00 10/26/17 17:59 Albuterol/ Ipratropium (Albuterol/ Ipratropium) 3 ml Q4H PRN HHN Shortness of Breath 09/30/17 18:00 10/05/17 17:59 Cetylpyridinium Chloride (Cepacol) 1 lozg Q2H PRN ILENE Throat Pain 10/02/17 11:30 11/01/17 11:14 10/02/17 18:07 Dextrose (Dextrose 50%) STAT PRN IV Hypoglycemia 09/30/17 18:00 10/30/17 17:59 Heparin Sodium (Porcine) (Heparin 5000 units/ml) 5,000 units EVERY 12 HOURS SUBQ 09/30/17 21:00 10/27/17 08:59 10/03/17 20:59 Insulin Aspart (NovoLOG) EVERY 6 HOURS SUBQ 09/30/17 18:45 10/27/17 18:44 10/03/17 18:31 Levetiracetam (Keppra) 1,500 mg Q12HR ORAL 10/03/17 21:00 11/02/17 20:59 10/03/17 20:40 Lorazepam (Ativan 2mg/ml 1ml) 2 mg Q2H PRN IV agitation 09/30/17 18:00 10/07/17 17:59 Morphine Sulfate (Morphine Sulfate) 4 mg Q4H PRN IVP Severe Pain (Pain Scale 7-10) 09/30/17 18:00 10/07/17 17:59 Nitroglycerin (Ntg) 0.4 mg Q5MIN PRN SL Prn Chest Pain 09/30/17 18:00 10/30/17 17:59 Ondansetron HCl (Zofran) 4 mg Q6H PRN IVP Nausea & Vomiting 09/30/17 18:15 10/26/17 18:14 10/01/17 14:51 Pantoprazole (Protonix) 40 mg EVERY 12 HOURS ORAL 10/03/17 21:00 11/02/17 20:59 10/03/17 20:40 FARRUKH VALDEZ Oct 03, 2017 23:19
[2017-10-04 00:49] VITALS: BP 149/56
[2017-10-04 04:00] VITALS: BP 146/76
[2017-10-04] MEDS: NovoLOG Insulin Flexpen SUBQ SCH ×3 (06:00→13:08)
[2017-10-04 08:00] VITALS: BP 144/67
[2017-10-04 08:16] LABS: BASOPHILS % (AUTO) 0.8 % (0.0-2.0); EOSINOPHILS % (AUTO) 4.5 % (0.0-3.0); HEMATOCRIT 33.3 % (37.0-47.0); HEMOGLOBIN 11.7 G/DL (12.0-16.0); LYMPHOCYTES % (AUTO) 29.6 % (20.0-45.0); MEAN CORPUSCULAR VOLUME 90 FL (80-99); MONOCYTES % (AUTO) 7.8 % (1.0-10.0); NEUTROPHILS % (AUTO) 57.3 % (45.0-75.0); PLATELET COUNT 515 K/UL (150-450); RED CELL DISTRIBUTION WIDTH 11.5 % (11.6-14.8); WHITE BLOOD COUNT 8.5 K/UL (4.8-10.8)
[2017-10-04 08:53] LABS: ANION GAP 5 mmol/L (5-15); BLOOD UREA NITROGEN 13 mg/dL (7-18); CALCIUM 9.1 MG/DL (8.5-10.1); CARBON DIOXIDE 31 MMOL/L (21-32); CHLORIDE 105 MMOL/L (98-107); CREATININE 0.9 MG/DL (0.55-1.30); POTASSIUM 3.7 MMOL/L (3.5-5.1); SODIUM 141 MMOL/L (136-145)
[2017-10-04] MEDS: Heparin 5000 units/ml inj SUBQ SCH (09:03)
--- NOTE | 2017-10-04 10:03 | Infectious Diseases Prog Note ---
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 to rupture cerebral aneurysm s/p craionotomy and aneurysm clip 2015 Plan: -Continue to monitor off abx, unless febrile or recurrent leukocytosis -f/u cx -Montior CBC/BMP, temperatures Subjective Constitutional: Denies: no symptoms, fever, chills, fatigue, anorexia, drenching sweats, other Allergies: Coded Allergies: No Known Allergies (Unverified , 01/14/17) Objective Vital Signs Last 24 Hour Vital Signs Date Time Temp Pulse Resp B/P (MAP) Pulse Ox O2 Delivery O2 Flow Rate FiO2 10/04/17 09:25 80 18 Room Air 21 10/04/17 09:25 Room Air 21 10/04/17 09:25 96 Room Air 21 10/04/17 08:00 97.7 77 18 144/67 98 10/04/17 04:00 97.5 83 18 146/76 93 10/04/17 00:49 97.8 67 18 149/56 96 10/03/17 20:00 98.3 70 19 150/73 94 10/03/17 16:00 98.1 72 20 153/60 97 10/03/17 14:14 86 18 Room Air 21 10/03/17 14:14 Room Air 21 10/03/17 14:14 97 Room Air 21 10/03/17 12:00 98.4 72 19 143/63 98 Height (Feet): 5 Height (Inches): 0.00 Weight (Pounds): 138 HEENT: mucous membranes moist Respiratory/Chest: no respiratory distress Cardiovascular: regular rhythm Abdomen: no mass Microbiology Date/Time Source Procedure Growth Status 10/02/17 02:00 Urine,Clean Catch Urine Culture - Final Proteus Mirabilis Complete Laboratory Tests Test 10/03/17 14:00 10/04/17 08:00 White Blood Count 8.8 K/UL (4.8-10.8) 8.5 K/UL (4.8-10.8) Red Blood Count 3.54 M/UL (4.20-5.40) L 3.70 M/UL (4.20-5.40) L Hemoglobin 10.9 G/DL (12.0-16.0) L 11.7 G/DL (12.0-16.0) L Hematocrit 31.8 % (37.0-47.0) L 33.3 % (37.0-47.0) L Mean Corpuscular Volume 90 FL (80-99) 90 FL (80-99) Mean Corpuscular Hemoglobin 30.9 PG (27.0-31.0) 31.5 PG (27.0-31.0) H Mean Corpuscular Hemoglobin Concent 34.4 G/DL (32.0-36.0) 35.0 G/DL (32.0-36.0) Red Cell Distribution Width 11.1 % (11.6-14.8) L 11.5 % (11.6-14.8) L Platelet Count 491 K/UL (150-450) H 515 K/UL (150-450) H Mean Platelet Volume 5.0 FL (6.5-10.1) L 5.3 FL (6.5-10.1) L Neutrophils (%) (Auto) 57.4 % (45.0-75.0) 57.3 % (45.0-75.0) Lymphocytes (%) (Auto) 28.8 % (20.0-45.0) 29.6 % (20.0-45.0) Monocytes (%) (Auto) 7.3 % (1.0-10.0) 7.8 % (1.0-10.0) Eosinophils (%) (Auto) 5.3 % (0.0-3.0) H 4.5 % (0.0-3.0) H Basophils (%) (Auto) 1.1 % (0.0-2.0) 0.8 % (0.0-2.0) Sodium Level 141 MMOL/L (136-145) Potassium Level 3.7 MMOL/L (3.5-5.1) Chloride Level 105 MMOL/L (98-107) Carbon Dioxide Level 31 MMOL/L (21-32) Anion Gap 5 mmol/L (5-15) Blood Urea Nitrogen 13 mg/dL (7-18) Creatinine 0.9 MG/DL (0.55-1.30) Estimat Glomerular Filtration Rate > 60 mL/min (>60) Glucose Level 91 MG/DL (74-106) Calcium Level 9.1 MG/DL (8.5-10.1) Current Medications Medications (Trade) Dose Ordered Sig/Xander Route PRN Reason Start Time Stop Time Status Last Admin Dose Admin Acetaminophen (Tylenol) 650 mg Q4H PRN ORAL Fever 09/30/17 18:00 10/26/17 17:59 Albuterol/ Ipratropium (Albuterol/ Ipratropium) 3 ml Q4H PRN HHN Shortness of Breath 09/30/17 18:00 10/05/17 17:59 Cetylpyridinium Chloride (Cepacol) 1 lozg Q2H PRN ILENE Throat Pain 10/02/17 11:30 11/01/17 11:14 10/04/17 09:16 Dextrose (Dextrose 50%) STAT PRN IV Hypoglycemia 09/30/17 18:00 10/30/17 17:59 Heparin Sodium (Porcine) (Heparin 5000 units/ml) 5,000 units EVERY 12 HOURS SUBQ 09/30/17 21:00 10/27/17 08:59 10/04/17 09:03 Insulin Aspart (NovoLOG) EVERY 6 HOURS SUBQ 09/30/17 18:45 10/27/17 18:44 10/03/17 18:31 Levetiracetam (Keppra) 1,500 mg Q12HR ORAL 10/03/17 21:00 11/02/17 20:59 10/04/17 09:02 Lorazepam (Ativan 2mg/ml 1ml) 2 mg Q2H PRN IV agitation 09/30/17 18:00 10/07/17 17:59 Morphine Sulfate (Morphine Sulfate) 4 mg Q4H PRN IVP Severe Pain (Pain Scale 7-10) 09/30/17 18:00 10/07/17 17:59 Nitroglycerin (Ntg) 0.4 mg Q5MIN PRN SL Prn Chest Pain 09/30/17 18:00 10/30/17 17:59 Ondansetron HCl (Zofran) 4 mg Q6H PRN IVP Nausea & Vomiting 09/30/17 18:15 10/26/17 18:14 10/01/17 14:51 Pantoprazole (Protonix) 40 mg EVERY 12 HOURS ORAL 10/03/17 21:00 11/02/17 20:59 10/04/17 09:02 TIESHA MADSEN M.D. Oct 04, 2017 10:03
[2017-10-04 12:00] VITALS: BP 137/66
[2017-10-04 16:00] VITALS: BP 137/66
--- NOTE | 2017-10-04 23:34 | Pulmonology Progress Note ---
Assessment/Plan Problems: (1) Respiratory failure (2) Altered mental status (3) HTN (hypertension) (4) Diabetes mellitus, type II (5) Seizure disorder Assessment/Plan pt/ pt dvt prophyalxis seizure meds. urination better dc planning for today Subjective ROS Limited/Unobtainable: No Allergies: Coded Allergies: No Known Allergies (Unverified , 01/14/17) Objective Last 24 Hour Vital Signs Date Time Temp Pulse Resp B/P (MAP) Pulse Ox O2 Delivery O2 Flow Rate FiO2 10/04/17 16:00 98.1 79 18 137/66 96 10/04/17 12:00 98.3 66 18 137/66 97 10/04/17 09:25 80 18 Room Air 21 10/04/17 09:25 Room Air 21 10/04/17 09:25 96 Room Air 21 10/04/17 08:00 97.7 77 18 144/67 98 10/04/17 04:00 97.5 83 18 146/76 93 10/04/17 00:49 97.8 67 18 149/56 96 Intake and Output 10/03/17 10/04/17 19:00 07:00 Intake Total 240 ml Output Total 800 ml Balance -560 ml Intake Oral 240 ml Output Urine Total 800 ml Objective General Appearance: WD/WN Lines, tubes and drains: peripheral HEENT: normocephalic, atraumatic Neck: non-tender, normal alignment Respiratory/Chest: chest wall non-tender, lungs clear Cardiovascular/Chest: normal peripheral pulses, normal rate Abdomen: normal bowel sounds, non tender Genitourinary/Rectal: normal genital exam Extremities: normal range of motion, non-tender Skin Exam: normal pigmentation 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 normal Microbiology Date/Time Source Procedure Growth Status 10/02/17 02:00 Urine,Clean Catch Urine Culture - Final Proteus Mirabilis Complete Laboratory Tests 10/04/17 08:00: White Blood Count 8.5, Red Blood Count 3.70L, Hemoglobin 11.7L, Hematocrit 33.3L , Mean Corpuscular Volume 90, Mean Corpuscular Hemoglobin 31.5H, Mean Corpuscular Hemoglobin Concent 35.0, Red Cell Distribution Width 11.5L, Platelet Count 515H, Mean Platelet Volume 5.3L, Neutrophils (%) (Auto) 57.3, Lymphocytes (%) (Auto) 29.6, Monocytes (%) (Auto) 7.8, Eosinophils (%) (Auto) 4.5H, Basophils (%) (Auto) 0.8, Sodium Level 141, Potassium Level 3.7, Chloride Level 105, Carbon Dioxide Level 31, Anion Gap 5, Blood Urea Nitrogen 13, Creatinine 0.9, Estimat Glomerular Filtration Rate > 60, Glucose Level 91, Calcium Level 9.1 FARRUKH VALDEZ Oct 04, 2017 23:34
--- NOTE | 2017-10-07 08:41 | Discharge Summary ---
Discharge Summary Hospital Course Date of Admission Sep 26, 2017 at 20:13 Date of Discharge Oct 04, 2017 at 18:30 Admitting Diagnosis UNCONTROLLED SEIZURES JEREMIAH Rubin is a 57 year old female who was admitted on Sep 26, 2017 at 20 :13 for Uncontrolled Seizures Hospital Course dc summary#[id number] Discharge Medications Continued Medications: Atorvastatin Calcium* (Lipitor*) 80 Mg Tablet 80 MG ORAL BEDTIME, TAB Levetiracetam (Keppra) 750 Mg Tablet 1500 MG ORAL BID, TAB Lisinopril* (Lisinopril*) 10 Mg Tablet 10 MG ORAL DAILY, TAB Discharge Condition Upon Discharge: stable Discharge Disposition Patient was discharged to Home with services Discharge Diagnoses: Mitchel (Cayla)Tisha NP Oct 07, 2017 08:41
--- NOTE | 2017-10-07 23:15 | Discharge Summary 2 SIG ---
DATE OF ADMISSION: 09/26/2017 DATE OF DISCHARGE: 10/04/2017 REASON FOR ADMISSION: 57-year-old female with past medical history of seizure disorder, craniotomy, secondary to ruptured aneurysm with subarachnoid hemorrhage, hypertension, diabetes, and hyperlipidemia, presented to the emergency department with altered mental status. Daughter called paramedics since she found the patient on the floor being altered. The patient was tachycardic with elevated blood pressure 188/74. She required placement on 100% nonrebreathing mask. The patient sustained seizure episode in the emergency department. She was hypoxemic and minimally responsive. Chest x-ray showed diffuse pulmonary edema. The patient continued to be seizing and for the airway protection, the patient was emergently intubated. The patient noted to have elevated troponin, troponin - 0.169. BUN -27, creatinine -1.6, and leukocytosis - 21.7. EKG showed sinus tachycardia, no acute ischemic changes. The patient was admitted with seizure disorder, respiratory failure, renal failure, elevated troponin, and pulmonary edema. HOSPITAL COURSE: The patient was admitted to the intensive care unit. Ventilator support and pulmonary toilet provided. The patient was followed up with daily chest x-ray and ABG. Initially while intubated was on IV Keppra and IV beta nikky. The patient subsequently was able to be extubated on 09/30/2016. Cardiology and Pulmonology closely followed. Per Cardiology, the patient had elevated troponin, however, the troponin elevation was minimal and levels were flat, likely secondary to renal failure. Echocardiogram revealed preserved ejection fraction of 55%, no evidence of wall motion abnormalities to the extent visualized, no evidence of pericardial effusion or left ventricular hypertrophy, right ventricular systolic pressure of 48 consistent with moderate pulmonary hypertension. Blood pressure was managed with SELENA inhibitor and remained stable. Initially, the patient was on the intravenous beta-nikky for blood pressure control while in intensive care unit. SELENA restarted when the patient was extubated. Neurologist seen the patient for seizure disorder. The patient was monitored for paroxysmal events. The patient was restarted on Keppra and Ativan added as needed for breakthrough seizure. Keppra dose was uptitrated. CT of the head revealed no mass effect, acute hemorrhage, or edema, status post clipping of the aneurysm. Left frontal/temporal encephalomalacia and craniotomy. No further seizure episodes while in the hospital. Carotid duplex was essentially stable. Blood sugar was managed with sliding scale of insulin. The patient initially was on the IV fluids. Renal parameters and electrolytes were closely monitored . Nephrotoxics were avoided. Creatinine down from 1.6 to 0.8. Acute tubular necrosis resolved. Renal ultrasound revealed normal bilateral kidney echogenicity, no evidence of hydronephrosis. Infectious Disease doctor seen the patient initially for leukocytosis. Blood culture negative. Infectious Disease recommended to keep the patient off antibiotics, there was no evidence of infectious process, mild leukocytosis resolved, afebrile. After extubation, the patient complained of neck pain. The patient undergone soft tissue neck x-ray, which revealed mild hypopharyngeal distention and epiglottic thickening with uncertain significance, possibly reactive related to recent endotracheal intubation. Subsequently, CT of the neck was done which showed focal tracheal stenosis in the lower cervical/upper thoracic trachea. Slight prominence of the surrounding soft tissue of the visceral space, slightly asymmetric on the right, possibly related to edema or granulation, given history of intubation. No well-defined drainable fluid collection was identified. Given asymmetry of the findings, follow up exam was recommended. Electrolytes were closely monitored and replaced as needed. DVT prophylaxis provided. Bowel regimen instituted. Pain management provided. Hemoglobin and hematocrit remain at the baseline. Workup was consistent with anemia of chronic disease. The patient was working with physical and occupational therapists. The patient was stable for discharge home with home health services with increased dose of Keppra, encouraged compliance with medications. FINAL DIAGNOSES: 1. Acute respiratory failure requiring intubation. 2. Acute toxic metabolic encephalopathy, secondary to uncontrolled seizures. 3. Chronic seizure disorder with breakthrough seizures. 4. Acute tubular necrosis, resolved. 5. Hypertension. 6. 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 7. Elevated troponin. 8. Leukocytosis, likely reactive, resolved. 9. Hyperlipidemia. 10. Moderate pulmonary hypertension. 11. Diabetes mellitus. 12. Electrolyte imbalance: hypokalemia, hypomagnesemia. 13. Anemia DISCHARGE MEDICATIONS: See medication reconciliation list. DISCHARGE INSTRUCTIONS: The patient discharged home with home health services. Follow up with the primary care provider. Christian Catherine M.D. I Tisha Grullon N.P. (Vanchtein) DR: SHAR JOB#: [id number] CC: ENRIQUE
== END 2017-10-04 18:30 | disposition home or self-care (01) | DRG 133 ==
LOC: EDBD 19:12 → EMR 19:44 → ICU 20:13 → EDBEDREQSVC 20:17 → EDBEDREQ 20:17 → 3E 09-30 18:00
PROC: 0BH17EZ Insertion of Endotracheal Airway into Trachea, Via Natural or Artificial Opening (ICD-10-PCS; principal; 2017-09-26)
PROC: 5A1945Z Respiratory Ventilation, 24-96 Consecutive Hours (ICD-10-PCS; principal; 2017-09-26)
DX: J96.01 Acute respiratory failure with hypoxia (principal); N17.0 Acute kidney failure with tubular necrosis; J81.0 Acute pulmonary edema; G92 Toxic encephalopathy; I24.8 Other forms of acute ischemic heart disease; I10 Essential (primary) hypertension; E11.9 Type 2 diabetes mellitus without complications; D64.9 Anemia, unspecified; I27.20 Pulmonary hypertension, unspecified; N17.9 Acute kidney failure, unspecified; G40.909 Epilepsy, unspecified, not intractable, without status epilepticus; E78.00 Pure hypercholesterolemia, unspecified; D72.829 Elevated white blood cell count, unspecified; J02.9 Acute pharyngitis, unspecified
CPT/HCPCS: 31500; 36415; 36600; 70360; 70450; 70492; 71045; 74018; 76775; 80048; 80053; 80076; 80299; 80329; 81001; 81003; 82550; 82607; 82728; 82747; 82803; 82962; 83540; 83550; 83615; 83735; 84100; 84133; 84300; 84478; 84484; 84550; 85025; 85610; 85651; 85730; 86140; 87040; 87081; 87086; 87181; 89050; 93005; 93306; 93880; 94002; 94003; 94640; 94664; 94760; J1815; J2405; J7620; J8499

== ENCOUNTER 2017-11-15 23:03 | Inpatient (IN) | payer OTHER ==
[~2017-11-15] VITALS: Ht 144.8 cm; Wt 59.0 kg
[~2017-11-15 23:03] MED LIST changes: +KEPPRA750 MG ORAL
--- NOTE | 2017-11-15 23:32 | Emergency Room Report ---
History of Present Illness General Chief Complaint: Dyspnea/Respdistress Source: Patient, Family Member Present Illness HPI 57-year-old female with 2-3 days of productive cough, increased sputum production and shortness of breath Patient's daughter states that her doctor recently took her off home oxygen, she had previously been on 2 L. Streaky is very significant, see below for recent admission and discharge with multiple medical problems: DATE OF ADMISSION: 09/26/2017 DATE OF DISCHARGE: 10/04/2017 REASON FOR ADMISSION: 57-year-old female with past medical history of seizure disorder, craniotomy, secondary to ruptured aneurysm with subarachnoid hemorrhage, hypertension, diabetes, and hyperlipidemia, presented to the emergency department with altered mental status. Daughter called paramedics since she found the patient on the floor being altered. The patient was tachycardic with elevated blood pressure 188/74. She required placement on 100% nonrebreathing mask. The patient sustained seizure episode in the emergency department. She was hypoxemic and minimally responsive. Chest x-ray showed diffuse pulmonary edema. The patient continued to be seizing and for the airway protection, the patient was emergently intubated. The patient noted to have elevated troponin, troponin - 0.169. BUN -27, creatinine -1.6, and leukocytosis - 21.7. EKG showed sinus tachycardia, no acute ischemic changes. The patient was admitted with seizure disorder, respiratory failure, renal failure, elevated troponin, and pulmonary edema. HOSPITAL COURSE: The patient was admitted to the intensive care unit. Ventilator support and pulmonary toilet provided. The patient was followed up with daily chest x-ray and ABG. Initially while intubated was on IV Keppra and IV beta nikky. The patient subsequently was able to be extubated on 09/30/2016. Cardiology and Pulmonology closely followed. Per Cardiology, the patient had elevated troponin, however, the troponin elevation was minimal and levels were flat, likely secondary to renal failure. Echocardiogram revealed preserved ejection fraction of 55%, no evidence of wall motion abnormalities to the extent visualized, no evidence of pericardial effusion or left ventricular hypertrophy, right ventricular systolic pressure of 48 consistent with moderate pulmonary hypertension. Blood pressure was managed with SELENA inhibitor and remained stable. Initially, the patient was on the intravenous beta-nikky for blood pressure control while in intensive care unit. SELENA restarted when the patient was extubated. Neurologist seen the patient for seizure disorder. The patient was monitored for paroxysmal events. The patient was restarted on Keppra and Ativan added as needed for breakthrough seizure. Keppra dose was uptitrated. CT of the head revealed no mass effect, acute hemorrhage, or edema, status post clipping of the aneurysm. Left frontal/temporal encephalomalacia and craniotomy. No further seizure episodes while in the hospital. Carotid duplex was essentially stable. Blood sugar was managed with sliding scale of insulin. The patient initially was on the IV fluids. Renal parameters and electrolytes were closely monitored . Nephrotoxics were avoided. Creatinine down from 1.6 to 0.8. Acute tubular necrosis resolved. Renal ultrasound revealed normal bilateral kidney echogenicity, no evidence of hydronephrosis. Infectious Disease doctor seen the patient initially for leukocytosis. Blood culture negative. Infectious Disease recommended to keep the patient off antibiotics, there was no evidence of infectious process, mild leukocytosis resolved, afebrile. After extubation, the patient complained of neck pain. The patient undergone soft tissue neck x-ray, which revealed mild hypopharyngeal distention and epiglottic thickening with uncertain significance, possibly reactive related to recent endotracheal intubation. Subsequently, CT of the neck was done which showed focal tracheal stenosis in the lower cervical/upper thoracic trachea. Slight prominence of the surrounding soft tissue of the visceral space, slightly asymmetric on the right, possibly related to edema or granulation, given history of intubation. No well-defined drainable fluid collection was identified. Given asymmetry of the findings, follow up exam was recommended. Electrolytes were closely monitored and replaced as needed. DVT prophylaxis provided. Bowel regimen instituted. Pain management provided. Hemoglobin and hematocrit remain at the baseline. Workup was consistent with anemia of chronic disease. The patient was working with physical and occupational therapists. The patient was stable for discharge home with home health services with increased dose of Keppra, encouraged compliance with medications. FINAL DIAGNOSES: 1. Acute respiratory failure requiring intubation. 2. Acute toxic metabolic encephalopathy, secondary to uncontrolled seizures. 3. Chronic seizure disorder with breakthrough seizures. 4. Acute tubular necrosis, resolved. 5. Hypertension. 6. 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 7. Elevated troponin. 8. Leukocytosis, likely reactive, resolved. 9. Hyperlipidemia. 10. Moderate pulmonary hypertension. 11. Diabetes mellitus. 12. Electrolyte imbalance: hypokalemia, hypomagnesemia. 13. Anemia Allergies: Coded Allergies: No Known Allergies (Unverified , 01/14/17) Patient History Past Medical History: other - see HPI Past Surgical History: other - trach Pertinent Family History: none Social History: Denies: smoking, alcohol use, drug use Last Menstrual Period: N/A Now: No Immunizations: UTD Reviewed Nursing Documentation: PMH: Agreed; PSxH: Agreed Nursing Documentation-PMH Hx Hypertension: Yes Hx Diabetes: Yes Hx Cancer: No Hx Neurological Problems: Yes - Subarachnoid hemorrhage Hx Seizures: Yes Review of Systems All Other Systems: negative except mentioned in HPI Physical Exam Vital Signs Date Time Temp Pulse Resp B/P (MAP) Pulse Ox O2 Delivery O2 Flow Rate FiO2 11/15/17 23:27 99.0 116 21 179/63 95 Room Air 99.0 Sp02 EP Interpretation: reviewed, normal General Appearance: normal inspection, well appearing, no apparent distress, alert, GCS 15, non-toxic Head: normocephalic, atraumatic Eyes: bilateral eye PERRL, bilateral eye EOMI ENT: normal ENT inspection, hearing grossly normal, normal pharynx, no angioedema, normal voice, TMs + canals normal, uvula midline, moist mucus membranes Neck: normal inspection, full range of motion, supple, thyroid normal, no meningismus, no bony tend Respiratory: normal inspection, lungs clear, normal breath sounds, no rhonchi, no respiratory distress, no retraction, no accessory muscle use, no wheezing, speaking full sentences Cardiovascular #1: regular rate, rhythm, no edema, no JVD, normal capillary refill Gastrointestinal: normal inspection, normal bowel sounds, non tender, soft, no mass, no peritonitis, non-distended, no guarding, no hernia, no pulsatile mass Genitourinary: no CVA tenderness Musculoskeletal: normal inspection, back normal, normal range of motion, no calf tenderness, pelvis stable, Isacc's Sign negative Neurologic: normal inspection, alert, oriented x3, responsive, dust box tender III-XII nml as tested, motor strength/tone normal, cerebellar normal, normal gait, speech normal Psychiatric: normal inspection, judgement/insight normal, mood/affect normal, no suicidal/homicidal ideation, no delusions Skin: normal inspection, normal color, no rash Lymphatic: normal inspection, no adenopathy Medical Decision Making Diagnostic Impression: Primary Impression: Dyspnea Qualified Codes: R06.00 - Dyspnea, unspecified Additional Impressions: Sepsis Qualified Codes: A41.9 - Sepsis, unspecified organism Pneumonia Qualified Codes: J18.1 - Lobar pneumonia, unspecified organism ER Course Initial vital signs stable, developed fever while in ER Located leukocytosis Sepsis criteria met, likely pneumonia Blood cultures pending, empiric antibiotics given IVF bolus held as unknown cardiac contractility, EF Tylenol given Lactate pending Endorsed to Dr. Catherine for telemetry admission as previously admitting doctor EKG Diagnostic Results Rate: tachycardiac Rhythm: NSR ST Segments: no acute changes ASA given to the pt in ED: No Rhythm Strip Diag. Results EP Interpretation: yes Rate: 105 Rhythm: NSR, no PVC's, no ectopy Chest X-Ray Diagnostic Results Chest X-Ray Diagnostic Results : Chest X-Ray Ordered: Yes Indication: Shortness of Breath EP Interpretation: Yes Interpretation: no pneumothorax, other - Cardiomegaly, right sided infiltrate Electronically Signed by: Dr Sahil Mccrary MD Last Vital Signs Date Time Temp Pulse Resp B/P (MAP) Pulse Ox O2 Delivery O2 Flow Rate FiO2 11/15/17 23:27 99.0 116 21 179/63 95 Room Air 99.0 Status: improved Disposition: ADMITTED INPATIENT SAHIL MCCRARY M.D. Nov 15, 2017 23:32
[2017-11-15 23:55] VITALS: BP 156/63
[2017-11-16] MEDS ORDERED: Albuterol ud Inhalation HHN ONE
[2017-11-16 00:29] LABS: HEMATOCRIT 36.1 % (37.0-47.0); HEMOGLOBIN 12.5 G/DL (12.0-16.0); MEAN CORPUSCULAR VOLUME 90 FL (80-99); PLATELET COUNT 337 K/UL (150-450); RED CELL DISTRIBUTION WIDTH 11.6 % (11.6-14.8); WHITE BLOOD COUNT 20.6 K/UL (4.8-10.8)
[2017-11-16 00:50] LABS: CHLORIDE 99 MMOL/L (98-107); POTASSIUM 3.7 MMOL/L (3.5-5.1); SODIUM 137 MMOL/L (136-145)
[2017-11-16 01:15] LABS: ANION GAP 9 mmol/L (5-15); BLOOD UREA NITROGEN 17 mg/dL (7-18); CALCIUM 8.8 MG/DL (8.5-10.1); CARBON DIOXIDE 29 MMOL/L (21-32); CREATININE 0.9 MG/DL (0.55-1.30)
[2017-11-16 01:28] LABS: ALANINE AMINOTRANSFERASE 40 U/L (12-78); ALBUMIN 3.4 G/DL (3.4-5.0); ALBUMIN/GLOBULIN RATIO 0.7 (1.0-2.7); ALKALINE PHOSPHATASE 122 U/L (46-116); ASPARTATE AMINO TRANSFERASE 24 U/L (15-37); BILIRUBIN,TOTAL 0.3 MG/DL (0.2-1.0); CKMB 0.5 NG/ML (0.0-3.6); CREATINE KINASE 47 U/L (26-308)
[2017-11-16] MEDS ORDERED: Vancomycin 1 GM in D5W 275 ML IVPB ONE (01:30)
[2017-11-16] MEDS ORDERED: Piperacillin/Tazobactam 3.375 GM in NS 110 ML IVPB ONE (01:30)
[2017-11-16] MEDS ORDERED: Vancomycin 1gm inj IVPB ONE (01:35)
[2017-11-16] MEDS ORDERED: Zosyn 3.375gm inj ONE (01:36)
[2017-11-16 04:00] VITALS: BP 128/60
[2017-11-16] MEDS ORDERED: Norco 5mg/325mg tab ORAL PRN (07:00)
[2017-11-16 08:30] VITALS: BP 140/67
[2017-11-16] MEDS: Aspirin Baby 81mg ORAL SCH (08:37)
[2017-11-16] MEDS: Lisinopril 10mg tab ORAL SCH (08:37)
--- NOTE | 2017-11-16 09:04 | Diagnostic Imaging Report ---
Indication: Shortness of breath Technique: XRAY Chest 1v Comparison: 10/02/2017 Findings: Cardiac silhouette is prominent. There is poor inspiration with mild interstitial prominence. There is no pneumothorax or pleural effusion. Degenerative changes of the spine are seen. Impression: Poor inspiration. Mild interstitial prominence may suggest mild edema. Clinical correlation/follow-up recommended.
[2017-11-16 12:00] VITALS: BP 117/59
[2017-11-16] MEDS: Vancomycin 500mg in D5W 275ml IVPB SCH (12:28)
--- NOTE | 2017-11-16 13:05 | History & Physical ---
History and Physical History & Physicial Dictated for Int Med-Dr Catherine no. [id number]. ANDREW CELESTE Nov 16, 2017 13:05
[2017-11-16] MEDS: Heparin 5000 units/ml inj SUBQ SCH ×2 (13:40→21:34)
[2017-11-16 15:50] VITALS: BP 104/53
[2017-11-16] MEDS: Albuterol ud Inhalation HHN SCH ×3 (16:39→23:58)
--- NOTE | 2017-11-16 16:46 | Pulmonolgy Critical Care Note ---
Critical Care - Asmt/Plan Assessment/Plan: HPI 57-year-old female with 2-3 days of productive cough, increased sputum production and shortness of breath Patient's daughter states that her doctor recently took her off home oxygen, she had previously been on 2 L. Past medical history of seizure disorder, craniotomy, secondary to ruptured aneurysm with subarachnoid hemorrhage, hypertension, diabetes, and hyperlipidemia, Previous admission with seizure 2017 requiring admission to the intensive care unit, trequired Ventilator support. Allergies: Coded Allergies: No Known Allergies (Unverified , 01/14/17) Patient History Past Medical History: other - see HPI Past Surgical History: other - trach Pertinent Family History: none Social History: Denies: smoking, alcohol use, drug use Last Menstrual Period: N/A Now: No Immunizations: UTD Reviewed Nursing Documentation: PMH: Agreed; PSxH: Agreed Nursing Documentation-PMH Hx Hypertension: Yes Hx Diabetes: Yes Hx Cancer: No Hx Neurological Problems: Yes - Subarachnoid hemorrhage Hx Seizures: Yes Review of Systems All Other Systems: negative except mentioned in HPI Physical Exam Vital Signs Date Time Temp Pulse Resp B/P (MAP) Pulse Ox O2 Delivery O2 Flow Rate FiO2 11/15/17 23:27 99.0 116 21 179/63 95 Room Air 99.0 Sp02 EP Interpretation: reviewed, normal General Appearance: normal inspection, well appearing, no apparent distress, alert, GCS 15, non-toxic Head: normocephalic, atraumatic Eyes: bilateral eye PERRL, bilateral eye EOMI ENT: normal ENT inspection, hearing grossly normal, normal pharynx, no angioedema, normal voice, TMs + canals normal, uvula midline, moist mucus membranes Neck: normal inspection, full range of motion, supple, thyroid normal, no meningismus, no bony tend Respiratory: normal inspection, lungs clear, normal breath sounds, no rhonchi, no respiratory distress, no retraction, no accessory muscle use, no wheezing, speaking full sentences Cardiovascular #1: regular rate, rhythm, no edema, no JVD, normal capillary refill Gastrointestinal: normal inspection, normal bowel sounds, non tender, soft, no mass, no peritonitis, non-distended, no guarding, no hernia, no pulsatile mass Genitourinary: no CVA tenderness Musculoskeletal: normal inspection, back normal, normal range of motion, no calf tenderness, pelvis stable, Isacc's Sign negative Neurologic: normal inspection, alert, oriented x3, responsive, manager in training III-XII nml as tested, motor strength/tone normal, cerebellar normal, normal gait, speech normal Psychiatric: normal inspection, judgement/insight normal, mood/affect normal, no suicidal/homicidal ideation, no delusions Skin: normal inspection, normal color, no rash Lymphatic: normal inspection, no adenopathy Medical Decision Making Diagnostic Impression: Primary Impression: Dyspnea Qualified Codes: R06.00 - Dyspnea, unspecified Additional Impressions: Sepsis Qualified Codes: A41.9 - Sepsis, unspecified organism Pneumonia Qualified Codes: J18.1 - Lobar pneumonia, unspecified organism ER Course Initial vital signs stable, developed fever while in ER Located leukocytosis Sepsis criteria met, likely pneumonia Blood cultures pending, empiric antibiotics given IVF bolus held as unknown cardiac contractility, EF Tylenol given Lactate pending Endorsed to Dr. Catherine for telemetry admission as previously admitting doctor EKG Diagnostic Results Rate: tachycardiac Rhythm: NSR ST Segments: no acute changes ASA given to the pt in ED: No Rhythm Strip Diag. Results EP Interpretation: yes Rate: 105 Rhythm: NSR, no PVC's, no ectopy Chest X-Ray Diagnostic Results Chest X-Ray Diagnostic Results : Chest X-Ray Ordered: Yes Indication: Shortness of Breath EP Interpretation: Yes Interpretation: no pneumothorax, other - Cardiomegaly, right sided infiltrate Last Vital Signs Date Time Temp Pulse Resp B/P (MAP) Pulse Ox O2 Delivery O2 Flow Rate FiO2 11/15/17 23:27 99.0 116 21 179/63 95 Room Air 99.0 Status: improving Impresion: Lobar Pneumonia Chronic seizure disorder with breakthrough seizures. Hypertension. 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 Hyperlipidemia. Moderate pulmonary hypertension. Diabetes mellitus. Plan: Continue current antibiotics and [employer] medications Oxygen for O2 sats 92-98% Time Spent (Minutes): 40 Critical Care - Objective Last 24 Hour Vital Signs Date Time Temp Pulse Resp B/P (MAP) Pulse Ox O2 Delivery O2 Flow Rate FiO2 11/16/17 15:50 97.5 85 20 104/53 100 Nasal Cannula 2.0 97.5 11/16/17 12:00 97.3 94 20 117/59 Nasal Cannula 2.0 97.3 3/24/18 12:00 88 11/16/17 11:50 88 11/16/17 10:00 24 Nasal Cannula 2.0 11/16/17 08:37 140/67 11/16/17 08:30 98.1 113 24 140/67 93 Room Air 98.1 11/16/17 07:59 113 11/16/17 04:00 98.2 107 22 128/60 93 Room Air 98.2 11/16/17 03:45 98.7 105 23 140/62 94 Room Air 11/16/17 00:02 105 20 100 Room Air 11/15/17 23:55 110 21 Room Air 94 11/15/17 23:55 100.9 110 21 156/63 94 Room Air 100.9 11/15/17 23:52 105 18 Room Air 11/15/17 23:52 105 20 95 Room Air 11/15/17 23:27 99.0 116 21 179/63 95 Room Air 99.0 Critical Care - Subjective ROS Limited/Unobtainable: Yes Condition: stable IV Access: peripheral EKG Rhythm: Sinus Rhythm FI02: 94 Sputum Amount: None I&O: Intake and Output 11/15/17 11/16/17 19:00 07:00 # Voids 1 Myles Pierce M.D. Nov 16, 2017 16:46
[2017-11-16 18:07] VITALS: BP 112/58
[2017-11-16 20:00] VITALS: BP 122/55
--- NOTE | 2017-11-16 20:15 | History and Physical Report ---
DATE OF ADMISSION: 11/16/2017 CHIEF COMPLAINT: The patient is a 57-year-old female who presents with chief complaint of sore throat and productive cough for one week. HISTORY OF PRESENT ILLNESS: Began one week prior to admission. The patient was admitted to [facility] September 26, 2017 to October 04, 2017. The patient was admitted for intractable seizures and altered mental status. The patient was admitted to the intensive care unit. Please see history and physical and discharge summary dictated at that time. The patient states history of present illness began approximately one week ago. The patient began experiencing sore throat. The patient also complains of cough, which is productive of black to white phlegm. The patient denies fevers or chills. The patient presented to [place] emergency room. The patient is admitted for productive cough to rule out pneumonia. REVIEW OF SYSTEMS: CONSTITUTIONAL: The patient denies weight loss or weight gain. The patient denies fevers or chills. HEENT: The patient denies ear pain. The patient complains of sore throat as above. CARDIOVASCULAR: The patient denies palpitations or chest pain. CHEST: The patient complains of wheezes. The patient complains of cough productive of black to white sputum. The patient denies wheezes. ABDOMEN: The patient denies nausea, vomiting, diarrhea, or constipation. NEUROMUSCULAR: The patient has a history of seizure disorder. The patient denies generalized weakness. GENITOURINARY: The patient denies dysuria or increased frequency of urination. PAST MEDICAL HISTORY: Significant for: 1. Seizure disorder. 2. Hypertension. 3. Subarachnoid hemorrhage secondary to ruptured aneurysm. PAST SURGICAL HISTORY: Significant for: 1. Craniotomy in 2016 secondary to subarachnoid hemorrhage as above. 2. Tracheostomy in 2016. CURRENT MEDICATIONS: 1. Lipitor 80 mg p.o. nightly. 2. Keppra 1500 mg p.o. twice daily. 3. Lisinopril 10 mg p.o. daily. ALLERGIES: No known drug allergies. SOCIAL HISTORY: The patient is single and lives with her daughter. The patient denies tobacco or alcohol use. PHYSICAL EXAMINATION: VITAL SIGNS: Temperature 100.9 degrees Fahrenheit, pulse 110, respirations 21, blood pressure 156/63. GENERAL: The patient is a well-developed and well-nourished female, in no apparent distress. HEENT: Eyes, pupils equal and responsive to light and accommodation. Extraocular movements are intact. NECK: Supple without lymphadenopathy. Chest diffuse crackles and wheezes in bilateral bases. Otherwise, clear to auscultation without wheezes or rales. CARDIOVASCULAR: Regular rate. S1 and S2 normal without murmurs, rubs, or gallops. ABDOMEN: Soft, nontender, and nondistended. Positive bowel sounds. No evidence of hepatosplenomegaly. Currently, no rebound or guarding noted. EXTREMITIES: Negative for clubbing, cyanosis, or edema. RECTAL/GENITAL: Refused. NEUROLOGIC: Cranial nerves II to XII are grossly intact without focal deficits. Motor strength is 5/5 bilaterally. LABORATORY AND DIAGNOSTIC DATA: A chest x-ray was reported as interstitial prominence consistent with edema. Laboratory studies, WBC 20.6, hemoglobin 12.5, hematocrit 36.1, platelets 337,000. Sodium 137, potassium 3.7, chloride 99, CO2 29, BUN 17, creatinine 0.9, glucose 159. BNP elevated at 2134. Troponin elevated at 0.052. ASSESSMENT: This is a 57-year-old female. 1. Fever. 2. Leukocytosis. 3. Shortness of breath. 4. Cough. 5. Pharyngitis. 6. Seizure disorder. 7. Hypertension. 8. Hypercholesterolemia. 9. History of subarachnoid hemorrhage. TREATMENT: 1. Fever/leukocytosis/cough/shortness of breath/pharyngitis. A Pulmonary consultation was obtained with Dr. Richmond Alvarado. An initial chest x-ray failed to demonstrate infiltrates. The patient has been started empirically on intravenous Zosyn. The patient is also receiving albuterol/Atrovent nebulized q.4 h. p.r.n. The patient has been started empirically on vancomycin and Zosyn. We will follow recommendations of Pulmonary. 2. Seizure disorder. Continue Keppra as above. 3. Hypertension. Continue lisinopril as above. 4. Seizure disorder. Continue Keppra as above. 5. History of subarachnoid hemorrhage. Richard Esteves M.D. DR: Nicole JOB#: [id number] CC:
[2017-11-16] MEDS: Atorvastatin 80mg tab ORAL SCH (21:33)
[2017-11-17] VITALS: BP 102/49
[2017-11-17] MEDS: Vancomycin 500mg in D5W 275ml IVPB SCH ×2 (00:44→12:37)
[2017-11-17] MEDS: Albuterol ud Inhalation HHN SCH ×6 (03:00→23:35)
[2017-11-17 04:00] VITALS: BP 115/59
[2017-11-17] MEDS: Heparin 5000 units/ml inj SUBQ SCH ×3 (06:16→22:00)
[2017-11-17 07:22] LABS: BASOPHILS % (AUTO) 0.6 % (0.0-2.0); EOSINOPHILS % (AUTO) 5.5 % (0.0-3.0); HEMATOCRIT 33.6 % (37.0-47.0); HEMOGLOBIN 11.5 G/DL (12.0-16.0); LYMPHOCYTES % (AUTO) 19.5 % (20.0-45.0); MEAN CORPUSCULAR VOLUME 91 FL (80-99); MONOCYTES % (AUTO) 5.8 % (1.0-10.0); NEUTROPHILS % (AUTO) 68.6 % (45.0-75.0); PLATELET COUNT 347 K/UL (150-450); RED BLOOD COUNT 3.69 M/UL (4.20-5.40); WHITE BLOOD COUNT 14.2 K/UL (4.8-10.8)
[2017-11-17 07:50] LABS: ALANINE AMINOTRANSFERASE 34 U/L (12-78); ALBUMIN/GLOBULIN RATIO 0.6 (1.0-2.7); ALKALINE PHOSPHATASE 103 U/L (46-116); ANION GAP 7 mmol/L (5-15); ASPARTATE AMINO TRANSFERASE 17 U/L (15-37); BILIRUBIN,TOTAL 0.3 MG/DL (0.2-1.0); BLOOD UREA NITROGEN 23 mg/dL (7-18); CALCIUM 8.8 MG/DL (8.5-10.1); CARBON DIOXIDE 31 MMOL/L (21-32); CHLORIDE 102 MMOL/L (98-107); CREATININE 1.2 MG/DL (0.55-1.30); SODIUM 140 MMOL/L (136-145)
[2017-11-17 08:00] VITALS: BP 116/54
[2017-11-17] MEDS: Lisinopril 10mg tab ORAL SCH ×2 (09:00→09:18)
[2017-11-17] MEDS: Aspirin Baby 81mg ORAL SCH (09:17)
--- NOTE | 2017-11-17 10:31 | Diagnostic Imaging Report ---
Indication: Cough Technique: XRAY Chest 2v Comparison: 11/15/2017 Findings: Cardiomediastinal silhouette is stable. Mild bilateral interstitial opacities are again seen. There is no pneumothorax or obvious pleural effusion. Degenerative changes of the spine are present. Impression: No significant change from 11/15/2017.
[2017-11-17] MEDS ORDERED: NS 275ml ONE (10:42)
[2017-11-17 12:00] VITALS: BP 115/54
--- NOTE | 2017-11-17 12:52 | Internal Med Progress Note ---
Subjective Date of Service: Nov 17, 2017 Physician Name Richard Esteves Attending Physician Christian Catherine MD Current Medications Medications (Trade) Dose Ordered Sig/Xander Route PRN Reason Start Time Stop Time Status Last Admin Dose Admin Acetaminophen (Tylenol) 650 mg Q6H PRN ORAL Mild Pain/Temp > 100.5 11/16/17 07:00 12/16/17 06:59 Acetaminophen/ Hydrocodone Bitart ([place] 5/325) 1 tab Q6H PRN ORAL Moderate Pain (Pain Scale 4-6) 11/16/17 07:00 11/23/17 06:59 Albuterol Sulfate (Proventil) 2.5 mg Q4HRT HHN 11/16/17 15:00 11/21/17 14:59 11/17/17 11:29 Aspirin (ASA) 81 mg DAILY ORAL 11/16/17 09:00 12/16/17 08:59 11/17/17 09:17 Atorvastatin Calcium (Lipitor) 80 mg BEDTIME ORAL 11/16/17 21:00 12/16/17 20:59 11/16/17 21:33 Dextrose (Dextrose 50%) STAT PRN IV Hypoglycemia 11/16/17 07:00 12/16/17 06:59 Heparin Sodium (Porcine) (Heparin 5000 units/ml) 5,000 units EVERY 8 HOURS SUBQ 11/16/17 14:00 12/16/17 13:59 11/17/17 06:16 Levetiracetam (Keppra) 1,500 mg Q12HR ORAL 11/16/17 09:00 12/16/17 08:59 11/17/17 09:17 Lisinopril (Zestril) 10 mg DAILY ORAL 11/16/17 09:00 12/16/17 08:59 11/16/17 08:37 Ondansetron HCl (Zofran) 4 mg Q4H PRN IVP Nausea & Vomiting 11/16/17 07:00 12/16/17 06:59 Piperacillin Sod/ Tazobactam Sod 3.375 gm/Dextrose 100 ml @ 25 mls/hr Q8HR@0200,1000,1800 IV 11/16/17 10:00 11/23/17 09:59 11/17/17 09:18 Vancomycin HCl (Vanco rx to dose) 1 ea DAILYPRN PRN MISC Per rx protocol 11/16/17 07:00 12/16/17 06:59 Vancomycin HCl 500 mg/Dextrose 275 ml @ 275 mls/hr Q12HR@0000,1200 IVPB 11/16/17 12:00 11/21/17 11:59 11/17/17 12:37 Allergies: Coded Allergies: No Known Allergies (Unverified , 01/14/17) ROS Limited/Unobtainable: No Constitutional: Reports: no symptoms HEENT: Reports: no symptoms Cardiovascular: Reports: no symptoms Respiratory: Reports: cough, shortness of breath Gastrointestinal/Abdominal: Reports: no symptoms Genitourinary: Reports: no symptoms Neurologic/Psychiatric: Reports: no symptoms Subjective 57 YO F admitted with shortness of breath. Now pneumonia. Cover for Int Med- Dr Catherine Objective Last Vital Signs Date Time Temp Pulse Resp B/P (MAP) Pulse Ox O2 Delivery O2 Flow Rate FiO2 11/17/17 11:44 81 18 99 Nasal Cannula 1.0 11/17/17 08:00 97.3 116/54 97.3 11/17/17 04:00 28 General Appearance: WD/WN, alert, mild distress EENT: PERRL/EOMI, normal ENT inspection Neck: non-tender, normal alignment, supple, normal inspection Cardiovascular: normal peripheral pulses, normal rate, regular rhythm, no gallop/murmur, no JVD Respiratory/Chest: chest wall non-tender, respiratory distress, crackles/rales , rhonchi - bilaterally, expiratory wheezing Abdomen: normal bowel sounds, non tender, soft, no organomegaly, no mass Extremities: normal range of motion, non-tender Neurologic: advance agent II-XII grossly normal, no motor/sensory deficits Skin: normal pigmentation, warm/dry Laboratory Tests Test 11/17/17 06:05 White Blood Count 14.2 K/UL (4.8-10.8) H Red Blood Count 3.69 M/UL (4.20-5.40) L Hemoglobin 11.5 G/DL (12.0-16.0) L Hematocrit 33.6 % (37.0-47.0) L Mean Corpuscular Volume 91 FL (80-99) Mean Corpuscular Hemoglobin 31.2 PG (27.0-31.0) H Mean Corpuscular Hemoglobin Concent 34.3 G/DL (32.0-36.0) Red Cell Distribution Width 12.0 % (11.6-14.8) Platelet Count 347 K/UL (150-450) Mean Platelet Volume 5.7 FL (6.5-10.1) L Neutrophils (%) (Auto) 68.6 % (45.0-75.0) Lymphocytes (%) (Auto) 19.5 % (20.0-45.0) L Monocytes (%) (Auto) 5.8 % (1.0-10.0) Eosinophils (%) (Auto) 5.5 % (0.0-3.0) H Basophils (%) (Auto) 0.6 % (0.0-2.0) Sodium Level 140 MMOL/L (136-145) Potassium Level 4.0 MMOL/L (3.5-5.1) Chloride Level 102 MMOL/L (98-107) Carbon Dioxide Level 31 MMOL/L (21-32) Anion Gap 7 mmol/L (5-15) Blood Urea Nitrogen 23 mg/dL (7-18) H Creatinine 1.2 MG/DL (0.55-1.30) Estimat Glomerular Filtration Rate 46.3 mL/min (>60) Glucose Level 130 MG/DL (74-106) H Lactic Acid Level 1.00 mmol/L (0.66-2.22) Calcium Level 8.8 MG/DL (8.5-10.1) Phosphorus Level 4.0 MG/DL (2.5-4.9) Magnesium Level 2.1 MG/DL (1.8-2.4) Total Bilirubin 0.3 MG/DL (0.2-1.0) Aspartate Amino Transf (AST/SGOT) 17 U/L (15-37) Alanine Aminotransferase (ALT/SGPT) 34 U/L (12-78) Alkaline Phosphatase 103 U/L (46-116) Total Protein 7.9 G/DL (6.4-8.2) Albumin 3.0 G/DL (3.4-5.0) L Globulin 4.9 g/dL Albumin/Globulin Ratio 0.6 (1.0-2.7) L Microbiology Date/Time Source Procedure Growth Status 11/16/17 01:15 Blood Blood Culture - Preliminary NO GROWTH AFTER 24 HOURS Resulted 11/16/17 01:15 Blood Blood Culture - Preliminary NO GROWTH AFTER 24 HOURS Resulted Intake and Output 11/16/17 11/17/17 19:00 07:00 Intake Total 1500 ml 145 ml Balance 1500 ml 145 ml Intake Oral 1100 ml 120 ml IV Total 400 ml 25 ml # Voids 1 # Bowel Movements 1 Assessment/Plan Problem List: (1) Subarachnoid hemorrhage Assessment & Plan: S/P craniotomy (2) Fever Assessment & Plan: Resolved (3) Leukocytosis (4) Pneumonia Assessment & Plan: Continue zosyn and vanco. See pulmonary note. (5) Seizure disorder Assessment & Plan: Continue keppra (6) HTN (hypertension) Assessment & Plan: Continue zestril (7) Hypercholesteremia Assessment & Plan: Continue RICHARD Wang Nov 17, 2017 12:52
[2017-11-17 16:00] VITALS: BP 115/64
[2017-11-17 20:00] VITALS: BP 117/55
[2017-11-17] MEDS: Atorvastatin 80mg tab ORAL SCH (22:49)
--- NOTE | 2017-11-17 23:25 | Pulmonology Progress Note ---
Assessment/Plan Assessment/Plan Patient: SHERRI VILLANUEVA [facility] Rec #: [id number] Patient No.: [id number] Date of Admission: 11/16/17 Progress Note date and time: 11/16/17 1646 Critical Care - Asmt/Plan Assessment/Plan: HPI 57-year-old female with 2-3 days of productive cough, increased sputum production and shortness of breath Patient's daughter states that her doctor recently took her off home oxygen, she had previously been on 2 L. Past medical history of seizure disorder, craniotomy, secondary to ruptured aneurysm with subarachnoid hemorrhage, hypertension, diabetes, and hyperlipidemia, Previous admission with seizure 2017 requiring admission to the intensive care unit, trequired Ventilator support. Allergies: Coded Allergies: No Known Allergies (Unverified , 01/14/17) Patient History Past Medical History: other - see HPI Past Surgical History: other - trach Pertinent Family History: none Social History: Denies: smoking, alcohol use, drug use Last Menstrual Period: N/A Now: No Immunizations: UTD Reviewed Nursing Documentation: PMH: Agreed; PSxH: Agreed Nursing Documentation-PMH Hx Hypertension: Yes Hx Diabetes: Yes Hx Cancer: No Hx Neurological Problems: Yes - Subarachnoid hemorrhage Hx Seizures: Yes Review of Systems All Other Systems: negative except mentioned in HPI Physical Exam Vital Signs Date Time Temp Pulse Resp B/P (MAP) Pulse Ox O2 Delivery O2 Flow Rate FiO2 11/15/17 23:27 99.0 116 21 179/63 95 Room Air 99.0 Sp02 EP Interpretation: reviewed, normal General Appearance: normal inspection, well appearing, no apparent distress, alert, GCS 15, non-toxic Head: normocephalic, atraumatic Eyes: bilateral eye PERRL, bilateral eye EOMI ENT: normal ENT inspection, hearing grossly normal, normal pharynx, no angioedema, normal voice, TMs + canals normal, uvula midline, moist mucus membranes Neck: normal inspection, full range of motion, supple, thyroid normal, no meningismus, no bony tend Respiratory: normal inspection, lungs clear, normal breath sounds, no rhonchi, no respiratory distress, no retraction, no accessory muscle use, no wheezing, speaking full sentences Cardiovascular #1: regular rate, rhythm, no edema, no JVD, normal capillary refill Gastrointestinal: normal inspection, normal bowel sounds, non tender, soft, no mass, no peritonitis, non-distended, no guarding, no hernia, no pulsatile mass Genitourinary: no CVA tenderness Musculoskeletal: normal inspection, back normal, normal range of motion, no calf tenderness, pelvis stable, Isacc's Sign negative Neurologic: normal inspection, alert, oriented x3, responsive, 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-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 nml as tested, motor strength/tone normal, cerebellar normal, normal gait, speech normal Psychiatric: normal inspection, judgement/insight normal, mood/affect normal, no suicidal/homicidal ideation, no delusions Skin: normal inspection, normal color, no rash Lymphatic: normal inspection, no adenopathy Medical Decision Making Diagnostic Impression: Primary Impression: Dyspnea Qualified Codes: R06.00 - Dyspnea, unspecified Additional Impressions: Sepsis Qualified Codes: A41.9 - Sepsis, unspecified organism Pneumonia Qualified Codes: J18.1 - Lobar pneumonia, unspecified organism ER Course Initial vital signs stable, developed fever while in ER Located leukocytosis Sepsis criteria met, likely pneumonia Blood cultures pending, empiric antibiotics given IVF bolus held as unknown cardiac contractility, EF Tylenol given Lactate pending Endorsed to Dr. Catherine for telemetry admission as previously admitting doctor EKG Diagnostic Results Rate: tachycardiac Rhythm: NSR ST Segments: no acute changes ASA given to the pt in ED: No Rhythm Strip Diag. Results EP Interpretation: yes Rate: 105 Rhythm: NSR, no PVC's, no ectopy Chest X-Ray Diagnostic Results Chest X-Ray Diagnostic Results : Chest X-Ray Ordered: Yes Indication: Shortness of Breath EP Interpretation: Yes Interpretation: no pneumothorax, other - Cardiomegaly, right sided infiltrate Last Vital Signs Date Time Temp Pulse Resp B/P (MAP) Pulse Ox O2 Delivery O2 Flow Rate FiO2 11/15/17 23:27 99.0 116 21 179/63 95 Room Air 99.0 Status: improving Impresion: Lobar Pneumonia Chronic seizure disorder with breakthrough seizures - no current seizures Hypertension. 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 Hyperlipidemia. Moderate pulmonary hypertension. Diabetes mellitus. 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 Oxygen for O2 sats 92-98% Time Spent (Minutes): 40 Critical Care - Objective Last 24 Hour Vital Signs Date Time Temp Pulse Resp B/P (MAP) Pulse Ox O2 Delivery O2 Flow Rate FiO2 11/16/17 15:50 97.5 85 20 104/53 100 Nasal Cannula 2.0 97.5 11/16/17 12:00 97.3 94 20 117/59 Nasal Cannula 2.0 97.3 11/16/17 12:00 88 11/16/17 11:50 88 11/16/17 10:00 24 Nasal Cannula 2.0 11/16/17 08:37 140/67 11/16/17 08:30 98.1 113 24 140/67 93 Room Air 98.1 11/16/17 07:59 113 11/16/17 04:00 98.2 107 22 128/60 93 Room Air 98.2 11/16/17 03:45 98.7 105 23 140/62 94 Room Air 11/16/17 00:02 105 20 100 Room Air 11/15/17 23:55 110 21 Room Air 94 11/15/17 23:55 100.9 110 21 156/63 94 Room Air 100.9 11/15/17 23:52 105 18 Room Air 11/15/17 23:52 105 20 95 Room Air 11/15/17 23:27 99.0 116 21 179/63 95 Room Air 99.0 Critical Care - Subjective ROS Limited/Unobtainable: Yes Condition: stable IV Access: peripheral EKG Rhythm: Sinus Rhythm FI02: 94 Sputum Amount: None I&O: Intake and Output 11/15/17 11/16/17 19:00 07:00 # Voids 1 Subjective ROS Limited/Unobtainable: Yes Interval Events: Stable Constitutional: Reports: no symptoms Respiratory: Reports: dry cough Cardiovascular: Reports: no symptoms Gastrointestinal/Abdominal: Reports: no symptoms Genitourinary: Reports: no symptoms Neurologic: Reports: no symptoms Psychiatric: Reports: no symptoms Skin: Reports: no symptoms Endocrine: Reports: no symptoms Hematologic: Reports: no symptoms Musculoskeletal: Reports: no symptoms Allergies: Coded Allergies: No Known Allergies (Unverified , 01/14/17) Objective Last 24 Hour Vital Signs Date Time Temp Pulse Resp B/P (MAP) Pulse Ox O2 Delivery O2 Flow Rate FiO2 11/17/17 19:29 92 20 100 Nasal Cannula 1.0 11/17/17 19:29 90 16 98 Nasal Cannula 1.0 11/17/17 19:28 98 Nasal Cannula 1.0 24 11/17/17 19:28 Nasal Cannula 1.0 24 11/17/17 16:00 84 11/17/17 16:00 97.3 87 19 115/64 95 Nasal Cannula 2.0 97.3 11/17/17 15:26 85 18 98 Nasal Cannula 1.0 11/17/17 15:16 85 20 98 Nasal Cannula 1.0 11/17/17 12:00 92 11/17/17 12:00 97.3 97 18 115/54 95 Nasal Cannula 2.0 97.3 11/17/17 11:44 81 18 99 Nasal Cannula 1.0 11/17/17 11:29 91 20 97 Nasal Cannula 1.0 11/17/17 08:00 96 11/17/17 08:00 97.3 101 19 116/54 94 Nasal Cannula 2.0 97.3 11/17/17 07:40 83 20 99 Nasal Cannula 1.0 11/17/17 07:30 81 18 96 Nasal Cannula 1.0 11/17/17 07:29 Nasal Cannula 1.0 11/17/17 07:28 96 Nasal Cannula 1.0 11/17/17 04:00 Nasal Cannula 2.0 28 11/17/17 04:00 85 11/17/17 04:00 Nasal Cannula 2.0 28 11/17/17 04:00 98.2 88 16 115/59 97 Nasal Cannula 2.0 98.2 11/17/17 00:00 98.1 93 12 102/49 96 Nasal Cannula 2.0 98.1 11/17/17 00:00 88 18 100 Nasal Cannula 2.0 28 11/17/17 00:00 85 11/16/17 23:58 81 16 98 Nasal Cannula 2.0 28 Intake and Output 11/16/17 11/17/17 19:00 07:00 Intake Total 1500 ml 145 ml Balance 1500 ml 145 ml Intake Oral 1100 ml 120 ml IV Total 400 ml 25 ml # Voids 1 # Bowel Movements 1 Microbiology Date/Time Source Procedure Growth Status 11/16/17 01:15 Blood Blood Culture - Preliminary NO GROWTH AFTER 24 HOURS Resulted 11/16/17 01:15 Blood Blood Culture - Preliminary NO GROWTH AFTER 24 HOURS Resulted Laboratory Tests 11/17/17 06:05: White Blood Count 14.2H, Red Blood Count 3.69L, Hemoglobin 11.5L, Hematocrit 33.6L, Mean Corpuscular Volume 91, Mean Corpuscular Hemoglobin 31.2H, Mean Corpuscular Hemoglobin Concent 34.3, Red Cell Distribution Width 12.0, Platelet Count 347, Mean Platelet Volume 5.7L, Neutrophils (%) (Auto) 68.6, Lymphocytes ( %) (Auto) 19.5L, Monocytes (%) (Auto) 5.8, Eosinophils (%) (Auto) 5.5H, Basophils (%) (Auto) 0.6, Sodium Level 140, Potassium Level 4.0, Chloride Level 102, Carbon Dioxide Level 31, Anion Gap 7, Blood Urea Nitrogen 23H, Creatinine 1.2, Estimat Glomerular Filtration Rate 46.3, Glucose Level 130H, Lactic Acid Level 1.00, Calcium Level 8.8, Phosphorus Level 4.0, Magnesium Level 2.1, Total Bilirubin 0.3, Aspartate Amino Transf (AST/SGOT) 17, Alanine Aminotransferase ( ALT/SGPT) 34, Alkaline Phosphatase 103, Total Protein 7.9, Albumin 3.0L, Globulin 4.9, Albumin/Globulin Ratio 0.6L Current Medications Medications (Trade) Dose Ordered Sig/Xander Route PRN Reason Start Time Stop Time Status Last Admin Dose Admin Acetaminophen (Tylenol) 650 mg Q6H PRN ORAL Mild Pain/Temp > 100.5 11/16/17 07:00 12/16/17 06:59 Acetaminophen/ Hydrocodone Bitart ([place] 5/325) 1 tab Q6H PRN ORAL Moderate Pain (Pain Scale 4-6) 11/16/17 07:00 11/23/17 06:59 Albuterol Sulfate (Proventil) 2.5 mg Q4HRT HHN 11/16/17 15:00 11/21/17 14:59 11/17/17 19:27 Aspirin (ASA) 81 mg DAILY ORAL 11/16/17 09:00 12/16/17 08:59 11/17/17 09:17 Atorvastatin Calcium (Lipitor) 80 mg BEDTIME ORAL 11/16/17 21:00 12/16/17 20:59 11/17/17 22:49 Dextrose (Dextrose 50%) STAT PRN IV Hypoglycemia 11/16/17 07:00 12/16/17 06:59 Guaifenesin/ Codeine Phosphate (Robitussin with codeine) 5 ml Q6H PRN ORAL For Cough 11/17/17 13:15 12/17/17 13:14 Heparin Sodium (Porcine) (Heparin 5000 units/ml) 5,000 units EVERY 8 HOURS SUBQ 11/16/17 14:00 12/16/17 13:59 11/17/17 14:20 Levetiracetam (Keppra) 1,500 mg Q12HR ORAL 11/16/17 09:00 12/16/17 08:59 11/17/17 22:49 Lisinopril (Zestril) 10 mg DAILY ORAL 11/16/17 09:00 12/16/17 08:59 11/16/17 08:37 Ondansetron HCl (Zofran) 4 mg Q4H PRN IVP Nausea & Vomiting 11/16/17 07:00 12/16/17 06:59 Piperacillin Sod/ Tazobactam Sod 3.375 gm/Dextrose 100 ml @ 25 mls/hr Q8HR@0200,1000,1800 IV 11/16/17 10:00 11/23/17 09:59 11/17/17 17:09 Vancomycin HCl (Vanco rx to dose) 1 ea DAILYPRN PRN MISC Per rx protocol 11/16/17 07:00 12/16/17 06:59 Vancomycin HCl 500 mg/Dextrose 275 ml @ 275 mls/hr Q12HR@0000,1200 IVPB 11/16/17 12:00 11/21/17 11:59 11/17/17 12:37 Myles Pierce M.D. Nov 17, 2017 23:25
[2017-11-18] VITALS: BP 112/62
[2017-11-18] MEDS: Vancomycin 500mg in D5W 275ml IVPB SCH (00:17)
[2017-11-18 04:00] VITALS: BP 134/61
[2017-11-18] MEDS: Albuterol ud Inhalation HHN SCH ×6 (04:24→23:58)
[2017-11-18] MEDS: Heparin 5000 units/ml inj SUBQ SCH ×3 (05:52→21:31)
[2017-11-18 08:00] VITALS: BP 137/58
[2017-11-18 08:10] LABS: BASOPHILS % (AUTO) 0.7 % (0.0-2.0); EOSINOPHILS % (AUTO) 5.1 % (0.0-3.0); HEMATOCRIT 30.5 % (37.0-47.0); HEMOGLOBIN 10.5 G/DL (12.0-16.0); LYMPHOCYTES % (AUTO) 22.1 % (20.0-45.0); MEAN CORPUSCULAR VOLUME 92 FL (80-99); NEUTROPHILS % (AUTO) 65.2 % (45.0-75.0); PLATELET COUNT 354 K/UL (150-450); RED BLOOD COUNT 3.32 M/UL (4.20-5.40); RED CELL DISTRIBUTION WIDTH 11.9 % (11.6-14.8); WHITE BLOOD COUNT 10.8 K/UL (4.8-10.8)
[2017-11-18 08:28] LABS: ANION GAP 6 mmol/L (5-15); BLOOD UREA NITROGEN 15 mg/dL (7-18); CALCIUM 8.6 MG/DL (8.5-10.1); CARBON DIOXIDE 31 MMOL/L (21-32); CHLORIDE 106 MMOL/L (98-107); CREATININE 0.8 MG/DL (0.55-1.30); SODIUM 143 MMOL/L (136-145)
[2017-11-18] MEDS: Aspirin Baby 81mg ORAL SCH (09:24)
[2017-11-18] MEDS: Lisinopril 10mg tab ORAL SCH (09:25)
--- NOTE | 2017-11-18 10:35 | Physician Query ---
--------- THIS DOCUMENT IS A PERMANENT PART OF THE MEDICAL RECORD --------- PLEASE COMPLETE DOCUMENT BEFORE SIGNING Dear Dr. Celeste Date: October [employer] Assistant/CDS Name: JUSTINA PINEDA [employer] Assistant/CDS Phone No.: [phone] Exercise your independent professional judgment when responding to the query. Questions asked do not imply a particular answer is desired or expected. We greatly appreciate your clarification on this issue. CLINICAL DOCUMENTATION STATES: "SEPSIS" == documented in Dr. Pierce's note on 11/16/17 CLINICAL FINDINGS SHOW: WBC = 20.6, 14.2 HR = >90 (105 - 116/min - on admission) Pneumonia Clarification is needed for one (or more) of the following conditions in order to accurately assign the "present on admission' indicator. Please choose the answer that best indicates whether the associated condition was present at the time of the order for inpatient admission. Thank you. Was the SEPSIS Present on admission? [] YES [] NO [] Clinically Undeterminable Please also document in your Progress Notes and/or Discharge Summary and indicate if the condition was present on admission. ANDREW CELESTE M.D. [facility]
--- NOTE | 2017-11-18 11:21 | Internal Med Progress Note ---
Subjective Date of Service: Nov 18, 2017 Physician Name Richard Celeste Attending Physician Christian Catherine MD Current Medications Medications (Trade) Dose Ordered Sig/Xander Route PRN Reason Start Time Stop Time Status Last Admin Dose Admin Acetaminophen (Tylenol) 650 mg Q6H PRN ORAL Mild Pain/Temp > 100.5 11/16/17 07:00 12/16/17 06:59 Acetaminophen/ Hydrocodone Bitart ([place] 5/325) 1 tab Q6H PRN ORAL Moderate Pain (Pain Scale 4-6) 11/16/17 07:00 11/23/17 06:59 Albuterol Sulfate (Proventil) 2.5 mg Q4HRT HHN 11/16/17 15:00 11/21/17 14:59 11/18/17 11:01 Aspirin (ASA) 81 mg DAILY ORAL 11/16/17 09:00 12/16/17 08:59 11/18/17 09:24 Atorvastatin Calcium (Lipitor) 80 mg BEDTIME ORAL 11/16/17 21:00 12/16/17 20:59 11/17/17 22:49 Dextrose (Dextrose 50%) STAT PRN IV Hypoglycemia 11/16/17 07:00 12/16/17 06:59 Guaifenesin/ Codeine Phosphate (Robitussin with codeine) 5 ml Q6H PRN ORAL For Cough 11/17/17 13:15 12/17/17 13:14 Heparin Sodium (Porcine) (Heparin 5000 units/ml) 5,000 units EVERY 8 HOURS SUBQ 11/16/17 14:00 12/16/17 13:59 11/17/17 14:20 Levetiracetam (Keppra) 1,500 mg Q12HR ORAL 11/16/17 09:00 12/16/17 08:59 11/18/17 09:24 Lisinopril (Zestril) 10 mg DAILY ORAL 11/16/17 09:00 12/16/17 08:59 11/18/17 09:25 Ondansetron HCl (Zofran) 4 mg Q4H PRN IVP Nausea & Vomiting 11/16/17 07:00 12/16/17 06:59 Piperacillin Sod/ Tazobactam Sod 3.375 gm/Dextrose 100 ml @ 25 mls/hr Q8HR@0200,1000,1800 IV 11/16/17 10:00 11/23/17 09:59 11/18/17 09:26 Vancomycin HCl (Vanco rx to dose) 1 ea DAILYPRN PRN MISC Per rx protocol 11/16/17 07:00 12/16/17 06:59 Vancomycin/Sodium Chloride 250 ml @ 166.667 mls/hr Q12H IVPB 11/18/17 12:00 11/23/17 11:59 Allergies: Coded Allergies: No Known Allergies (Unverified , 01/14/17) ROS Limited/Unobtainable: No Constitutional: Reports: fever HEENT: Reports: no symptoms Cardiovascular: Reports: no symptoms Respiratory: Reports: shortness of breath Gastrointestinal/Abdominal: Reports: no symptoms Genitourinary: Reports: no symptoms Neurologic/Psychiatric: Reports: no symptoms Subjective 57 YO F admitted with shortness of breath. Now pneumonia. Cover for Int Med- Dr Catherine Objective Last Vital Signs Date Time Temp Pulse Resp B/P (MAP) Pulse Ox O2 Delivery O2 Flow Rate FiO2 11/18/17 11:13 87 22 98 Room Air 21 11/18/17 09:25 128/76 11/18/17 08:57 1.0 11/18/17 08:00 97.9 97.9 Laboratory Tests Test 11/17/17 23:20 11/18/17 06:50 Vancomycin Level Trough 9.7 ug/mL (5.0-12.0) White Blood Count 10.8 K/UL (4.8-10.8) Red Blood Count 3.32 M/UL (4.20-5.40) L Hemoglobin 10.5 G/DL (12.0-16.0) L Hematocrit 30.5 % (37.0-47.0) L Mean Corpuscular Volume 92 FL (80-99) Mean Corpuscular Hemoglobin 31.6 PG (27.0-31.0) H Mean Corpuscular Hemoglobin Concent 34.5 G/DL (32.0-36.0) Red Cell Distribution Width 11.9 % (11.6-14.8) Platelet Count 354 K/UL (150-450) Mean Platelet Volume 5.6 FL (6.5-10.1) L Neutrophils (%) (Auto) 65.2 % (45.0-75.0) Lymphocytes (%) (Auto) 22.1 % (20.0-45.0) Monocytes (%) (Auto) 7.0 % (1.0-10.0) Eosinophils (%) (Auto) 5.1 % (0.0-3.0) H Basophils (%) (Auto) 0.7 % (0.0-2.0) Sodium Level 143 MMOL/L (136-145) Potassium Level 4.0 MMOL/L (3.5-5.1) Chloride Level 106 MMOL/L (98-107) Carbon Dioxide Level 31 MMOL/L (21-32) Anion Gap 6 mmol/L (5-15) Blood Urea Nitrogen 15 mg/dL (7-18) Creatinine 0.8 MG/DL (0.55-1.30) Estimat Glomerular Filtration Rate > 60 mL/min (>60) Glucose Level 122 MG/DL (74-106) H Calcium Level 8.6 MG/DL (8.5-10.1) Microbiology Date/Time Source Procedure Growth Status 11/16/17 01:15 Blood Blood Culture - Preliminary NO GROWTH AFTER 48 HOURS Resulted 11/16/17 01:15 Blood Blood Culture - Preliminary NO GROWTH AFTER 48 HOURS Resulted Intake and Output 11/17/17 11/18/17 19:00 07:00 Intake Total 708 ml 575 ml Balance 708 ml 575 ml Intake Oral 708 ml 300 ml IV Total 275 ml # Voids 2 Objective General Appearance: WD/WN, alert, mild distress EENT: PERRL/EOMI, normal ENT inspection Neck: non-tender, normal alignment, supple, normal inspection Cardiovascular: normal peripheral pulses, normal rate, regular rhythm, no gallop/murmur, no JVD Respiratory/Chest: chest wall non-tender, respiratory distress, crackles/rales , rhonchi - bilaterally, expiratory wheezing Abdomen: normal bowel sounds, non tender, soft, no organomegaly, no mass Extremities: normal range of motion, non-tender 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 See pulmonary note. (5) Seizure disorder Assessment & Plan: Continue keppra (6) HTN (hypertension) Assessment & Plan: Continue lisinopril (7) Hypercholesteremia Assessment & Plan: Continue lipitor Status: not improved RICHARD CELESTE Nov 18, 2017 11:21
[2017-11-18] MEDS: guaiFENesin w/Codeine 5ml Liq ud ORAL PRN ×2 (11:30→17:42)
[2017-11-18] MEDS: Vancomycin 750mg/NS 250ml IVPB SCH (11:49)
[2017-11-18 12:00] VITALS: BP 133/61
[2017-11-18] MEDS ORDERED: Vancomycin 750mg/D5W 275ml IVPB SCH ×2 (12:00)
[2017-11-18 16:00] VITALS: BP 129/70
--- NOTE | 2017-11-18 19:22 | Cardiology Report ---
APPROVED REPORT EKG Measurement Heart [id number] Sinus tachycardia Possible Left atrial enlargement Left ventricular hypertrophy with repolarization abnormality Abnormal ECG
[2017-11-18 20:00] VITALS: BP 135/64
[2017-11-18] MEDS: Atorvastatin 80mg tab ORAL SCH (21:30)
--- NOTE | 2017-11-18 23:19 | Pulmonolgy Critical Care Note ---
Critical Care - Asmt/Plan Assessment/Plan: HPI 57-year-old female with 2-3 days of productive cough, increased sputum production and shortness of breath Patient's daughter states that her doctor recently took her off home oxygen, she had previously been on 2 L. Past medical history of seizure disorder, craniotomy, secondary to ruptured aneurysm with subarachnoid hemorrhage, hypertension, diabetes, and hyperlipidemia, Previous admission with seizure 2017 requiring admission to the intensive care unit, trequired Ventilator support. Allergies: Coded Allergies: No Known Allergies (Unverified , 01/14/17) Patient History Past Medical History: other - see HPI Past Surgical History: other - trach Pertinent Family History: none Social History: Denies: smoking, alcohol use, drug use Last Menstrual Period: N/A Now: No Immunizations: UTD Reviewed Nursing Documentation: PMH: Agreed; PSxH: Agreed Nursing Documentation-PMH Hx Hypertension: Yes Hx Diabetes: Yes Hx Cancer: No Hx Neurological Problems: Yes - Subarachnoid hemorrhage Hx Seizures: Yes Review of Systems All Other Systems: negative except mentioned in HPI Physical Exam Vital Signs Date Time Temp Pulse Resp B/P (MAP) Pulse Ox O2 Delivery O2 Flow Rate FiO2 11/15/17 23:27 99.0 116 21 179/63 95 Room Air 99.0 Sp02 EP Interpretation: reviewed, normal General Appearance: normal inspection, well appearing, no apparent distress, alert, GCS 15, non-toxic Head: normocephalic, atraumatic Eyes: bilateral eye PERRL, bilateral eye EOMI ENT: normal ENT inspection, hearing grossly normal, normal pharynx, no angioedema, normal voice, TMs + canals normal, uvula midline, moist mucus membranes Neck: normal inspection, full range of motion, supple, thyroid normal, no meningismus, no bony tend Respiratory: normal inspection, lungs clear, normal breath sounds, no rhonchi, no respiratory distress, no retraction, no accessory muscle use, no wheezing, speaking full sentences Cardiovascular #1: regular rate, rhythm, no edema, no JVD, normal capillary refill Gastrointestinal: normal inspection, normal bowel sounds, non tender, soft, no mass, no peritonitis, non-distended, no guarding, no hernia, no pulsatile mass Genitourinary: no CVA tenderness Musculoskeletal: normal inspection, back normal, normal range of motion, no calf tenderness, pelvis stable, Isacc's Sign negative Neurologic: normal inspection, alert, oriented x3, responsive, golf club manager III-XII nml as tested, motor strength/tone normal, cerebellar normal, normal gait, speech normal Psychiatric: normal inspection, judgement/insight normal, mood/affect normal, no suicidal/homicidal ideation, no delusions Skin: normal inspection, normal color, no rash Lymphatic: normal inspection, no adenopathy Medical Decision Making Diagnostic Impression: Primary Impression: Dyspnea Qualified Codes: R06.00 - Dyspnea, unspecified Additional Impressions: Sepsis Qualified Codes: A41.9 - Sepsis, unspecified organism Pneumonia Qualified Codes: J18.1 - Lobar pneumonia, unspecified organism ER Course Initial vital signs stable, developed fever while in ER Located leukocytosis Sepsis criteria met, likely pneumonia Blood cultures pending, empiric antibiotics given IVF bolus held as unknown cardiac contractility, EF Tylenol given Lactate pending Endorsed to Dr. Catherine for telemetry admission as previously admitting doctor EKG Diagnostic Results Rate: tachycardiac Rhythm: NSR ST Segments: no acute changes ASA given to the pt in ED: No Rhythm Strip Diag. Results EP Interpretation: yes Rate: 105 Rhythm: NSR, no PVC's, no ectopy Chest X-Ray Diagnostic Results Chest X-Ray Diagnostic Results : Chest X-Ray Ordered: Yes Indication: Shortness of Breath EP Interpretation: Yes Interpretation: no pneumothorax, other - Cardiomegaly, right sided infiltrate Last Vital Signs Date Time Temp Pulse Resp B/P (MAP) Pulse Ox O2 Delivery O2 Flow Rate FiO2 11/15/17 23:27 99.0 116 21 179/63 95 Room Air 99.0 Status: improving Impresion: Lobar Pneumonia, remains afebrile Chronic seizure disorder with breakthrough seizures. Hypertension. 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 Hyperlipidemia. Moderate pulmonary hypertension. Diabetes mellitus. Plan: Continue current antibiotics and [employer] medications Oxygen for O2 sats 92-98% Critical Care - Objective Last 24 Hour Vital Signs Date Time Temp Pulse Resp B/P (MAP) Pulse Ox O2 Delivery O2 Flow Rate FiO2 11/18/17 20:00 97.7 87 22 135/64 98 Nasal Cannula 2.0 97.7 11/18/17 20:00 88 11/18/17 19:59 82 18 96 Nasal Cannula 1.0 24 11/18/17 19:50 85 18 96 Nasal Cannula 1.0 24 11/18/17 19:50 96 Nasal Cannula 1.0 24 11/18/17 19:50 Nasal Cannula 1.0 24 11/18/17 16:00 97.5 87 19 129/70 98 Nasal Cannula 2.0 98 97.5 11/18/17 16:00 78 11/18/17 15:44 89 20 98 Nasal Cannula 1.0 24 11/18/17 15:34 87 18 96 Nasal Cannula 1.0 24 11/18/17 12:00 83 11/18/17 12:00 97.5 80 18 133/61 97 Nasal Cannula 2.0 97 97.5 11/18/17 11:13 87 22 98 Room Air 21 11/18/17 11:01 89 18 94 Room Air 21 11/18/17 09:25 128/76 11/18/17 08:57 88 20 99 Nasal Cannula 1.0 24 11/18/17 08:47 98 Nasal Cannula 1.0 24 11/18/17 08:47 86 18 98 Nasal Cannula 1.0 24 11/18/17 08:47 Nasal Cannula 1.0 24 11/18/17 08:00 84 11/18/17 08:00 97.9 116 19 137/58 97 Nasal Cannula 2.0 98 97.9 11/18/17 04:00 80 11/18/17 04:00 97.2 88 22 134/61 99 Nasal Cannula 2.0 97.2 11/18/17 03:45 91 20 98 Nasal Cannula 1.0 24 11/18/17 03:30 86 16 95 Nasal Cannula 1.0 24 11/18/17 00:00 98.2 116 18 112/62 99 Nasal Cannula 2.0 98.2 11/18/17 00:00 93 11/17/17 23:35 97 20 100 Nasal Cannula 1.0 24 11/17/17 23:35 91 16 97 Nasal Cannula 1.0 24 Micro: Microbiology Date/Time Source Procedure Growth Status 11/16/17 01:15 Blood Blood Culture - Preliminary NO GROWTH AFTER 48 HOURS Resulted 11/16/17 01:15 Blood Blood Culture - Preliminary NO GROWTH AFTER 48 HOURS Resulted Critical Care - Subjective ROS Limited/Unobtainable: Yes Condition: improving IV Access: peripheral EKG Rhythm: Sinus Rhythm FI02: 24 Sputum Amount: None I&O: Intake and Output 3/25/18 3/26/18 19:00 07:00 Intake Total 708 ml 575 ml Balance 708 ml 575 ml Intake Oral 708 ml 300 ml IV Total 275 ml # Voids 2 Myles Pierce M.D. Nov 18, 2017 23:19
[2017-11-19] VITALS: BP 139/63
[2017-11-19] MEDS: Vancomycin 750mg/NS 250ml IVPB SCH (00:34)
[2017-11-19] MEDS: Albuterol ud Inhalation HHN SCH ×6 (03:41→22:55)
[2017-11-19 04:00] VITALS: BP 132/68
[2017-11-19] MEDS: Heparin 5000 units/ml inj SUBQ SCH ×5 (06:00→22:00)
[2017-11-19 06:55] LABS: ANION GAP 5 mmol/L (5-15); BLOOD UREA NITROGEN 15 mg/dL (7-18); CALCIUM 8.7 MG/DL (8.5-10.1); CARBON DIOXIDE 33 MMOL/L (21-32); CHLORIDE 106 MMOL/L (98-107); CREATININE 0.9 MG/DL (0.55-1.30); SODIUM 144 MMOL/L (136-145)
[2017-11-19 07:10] LABS: BASOPHILS % (AUTO) 0.9 % (0.0-2.0); EOSINOPHILS % (AUTO) 4.8 % (0.0-3.0); HEMATOCRIT 31.5 % (37.0-47.0); HEMOGLOBIN 10.7 G/DL (12.0-16.0); LYMPHOCYTES % (AUTO) 22.8 % (20.0-45.0); MEAN CORPUSCULAR VOLUME 91 FL (80-99); MONOCYTES % (AUTO) 6.5 % (1.0-10.0); NEUTROPHILS % (AUTO) 65.1 % (45.0-75.0); PLATELET COUNT 408 K/UL (150-450); RED BLOOD COUNT 3.45 M/UL (4.20-5.40); RED CELL DISTRIBUTION WIDTH 11.7 % (11.6-14.8); WHITE BLOOD COUNT 11.4 K/UL (4.8-10.8)
[2017-11-19 08:00] VITALS: BP 145/62
[2017-11-19] MEDS ORDERED: Norco 5mg/325mg tab ORAL PRN (09:00)
[2017-11-19] MEDS: Lisinopril 10mg tab ORAL SCH (09:02)
[2017-11-19] MEDS: Aspirin Baby 81mg ORAL SCH (09:02)
[2017-11-19 12:00] VITALS: BP 130/82
[2017-11-19] MEDS: Vancomycin 750mg/NS 250ml 250 ML IVPB SCH ×2 (13:19→23:31)
[2017-11-19] MEDS: guaiFENesin w/Codeine 5ml Liq ud ORAL PRN ×2 (13:37→19:58)
[2017-11-19] MEDS ORDERED: NS 275ml ONE (15:45)
[2017-11-19] MEDS ORDERED: Tubing IV Secondary IV ONE (15:45)
[2017-11-19 15:50] VITALS: BP 144/97
--- NOTE | 2017-11-19 18:31 | Internal Med Progress Note ---
Subjective Date of Service: Nov 19, 2017 Physician Name Richard Celeste Attending Physician Christian Catherine MD Current Medications Medications (Trade) Dose Ordered Sig/Xander Route PRN Reason Start Time Stop Time Status Last Admin Dose Admin Acetaminophen (Tylenol) 650 mg Q6H PRN ORAL Mild Pain/Temp > 100.5 11/19/17 09:00 12/16/17 08:59 Acetaminophen/ Hydrocodone Bitart ([place] 5/325) 1 tab Q6H PRN ORAL Moderate Pain (Pain Scale 4-6) 11/19/17 09:00 11/23/17 08:59 Albuterol Sulfate (Proventil) 2.5 mg Q4HRT HHN 11/19/17 11:00 11/21/17 14:59 11/19/17 15:59 Aspirin (ASA) 81 mg DAILY ORAL 11/19/17 09:00 12/16/17 08:59 11/19/17 09:02 Atorvastatin Calcium (Lipitor) 80 mg BEDTIME ORAL 11/19/17 21:00 12/16/17 20:59 Dextrose (Dextrose 50%) STAT PRN IV Hypoglycemia 11/19/17 09:00 12/19/17 08:59 Guaifenesin/ Codeine Phosphate (Robitussin with codeine) 5 ml Q6H PRN ORAL For Cough 11/19/17 14:00 12/19/17 13:59 11/19/17 13:37 Heparin Sodium (Porcine) (Heparin 5000 units/ml) 5,000 units EVERY 8 HOURS SUBQ 11/19/17 14:00 12/16/17 13:59 Levetiracetam (Keppra) 1,500 mg Q12HR ORAL 11/19/17 09:00 12/16/17 08:59 11/19/17 09:01 Lisinopril (Zestril) 10 mg DAILY ORAL 11/19/17 09:00 12/16/17 08:59 11/19/17 09:02 Ondansetron HCl (Zofran) 4 mg Q4H PRN IVP Nausea & Vomiting 11/19/17 09:00 12/16/17 08:59 Piperacillin Sod/ Tazobactam Sod 3.375 gm/Dextrose 100 ml @ 25 mls/hr Q8HR@0200,1000,1800 IV 11/19/17 10:00 11/23/17 09:59 11/19/17 17:57 Vancomycin HCl (Vanco rx to dose) 1 ea DAILYPRN PRN MISC Per rx protocol 11/19/17 08:30 12/19/17 08:29 Vancomycin/Sodium Chloride 250 ml @ 166.667 mls/hr Q12H IVPB 11/19/17 12:00 11/23/17 11:59 11/19/17 13:19 Allergies: Coded Allergies: No Known Allergies (Unverified , 01/14/17) ROS Limited/Unobtainable: No Constitutional: Reports: no symptoms HEENT: Reports: no symptoms Respiratory: Reports: shortness of breath Gastrointestinal/Abdominal: Reports: no symptoms Genitourinary: Reports: no symptoms Neurologic/Psychiatric: Reports: no symptoms Subjective 57 YO F admitted with shortness of breath. Now pneumonia. Cover for Int Med- Dr Catherine. Tolerating nasal canula Objective Last Vital Signs Date Time Temp Pulse Resp B/P (MAP) Pulse Ox O2 Delivery O2 Flow Rate FiO2 11/19/17 16:00 81 16 100 Nasal Cannula 1.0 24 11/19/17 15:50 98.7 144/97 98.7 Laboratory Tests Test 11/19/17 05:45 11/19/17 11:35 White Blood Count 11.4 K/UL (4.8-10.8) H Red Blood Count 3.45 M/UL (4.20-5.40) L Hemoglobin 10.7 G/DL (12.0-16.0) L Hematocrit 31.5 % (37.0-47.0) L Mean Corpuscular Volume 91 FL (80-99) Mean Corpuscular Hemoglobin 31.0 PG (27.0-31.0) Mean Corpuscular Hemoglobin Concent 34.0 G/DL (32.0-36.0) Red Cell Distribution Width 11.7 % (11.6-14.8) Platelet Count 408 K/UL (150-450) Mean Platelet Volume 5.5 FL (6.5-10.1) L Neutrophils (%) (Auto) 65.1 % (45.0-75.0) Lymphocytes (%) (Auto) 22.8 % (20.0-45.0) Monocytes (%) (Auto) 6.5 % (1.0-10.0) Eosinophils (%) (Auto) 4.8 % (0.0-3.0) H Basophils (%) (Auto) 0.9 % (0.0-2.0) Sodium Level 144 MMOL/L (136-145) Potassium Level 4.0 MMOL/L (3.5-5.1) Chloride Level 106 MMOL/L (98-107) Carbon Dioxide Level 33 MMOL/L (21-32) H Anion Gap 5 mmol/L (5-15) Blood Urea Nitrogen 15 mg/dL (7-18) Creatinine 0.9 MG/DL (0.55-1.30) Estimat Glomerular Filtration Rate > 60 mL/min (>60) Glucose Level 112 MG/DL (74-106) H Calcium Level 8.7 MG/DL (8.5-10.1) Vancomycin Level Trough 12.9 ug/mL (5.0-12.0) H Intake and Output 11/18/17 11/19/17 19:00 07:00 Intake Total 377 ml 661 ml Balance 377 ml 661 ml Intake Oral 352 ml 236 ml IV Total 25 ml 425 ml # Voids 1 2 Objective General Appearance: WD/WN, alert, mild distress EENT: PERRL/EOMI, normal ENT inspection Neck: non-tender, normal alignment, supple, normal inspection Cardiovascular: normal peripheral pulses, normal rate, regular rhythm, no gallop/murmur, no JVD Respiratory/Chest: chest wall non-tender, respiratory distress, crackles/rales , rhonchi - bilaterally, expiratory wheezing Abdomen: normal bowel sounds, non tender, soft, no organomegaly, no mass Extremities: normal range of motion, non-tender 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 See pulmonary note. (5) Seizure disorder Assessment & Plan: Continue keppra (6) HTN (hypertension) Assessment & Plan: Continue lisinopril (7) Hypercholesteremia Assessment & Plan: Continue lipitor Status: not improved RICHARD CELESTE Nov 19, 2017 18:31
[2017-11-19 20:00] VITALS: BP 148/56
[2017-11-19] MEDS: Atorvastatin 80mg tab ORAL SCH (21:05)
--- NOTE | 2017-11-19 23:20 | Pulmonolgy Critical Care Note ---
Critical Care - Asmt/Plan Assessment/Plan: HPI 57-year-old female with 2-3 days of productive cough, increased sputum production and shortness of breath Patient's daughter states that her doctor recently took her off home oxygen, she had previously been on 2 L. Feels better Past medical history of seizure disorder, craniotomy, secondary to ruptured aneurysm with subarachnoid hemorrhage, hypertension, diabetes, and hyperlipidemia, Previous admission with seizure 2017 requiring admission to the intensive care unit, trequired Ventilator support. Allergies: Coded Allergies: No Known Allergies (Unverified , 01/14/17) Patient History Past Medical History: other - see HPI Past Surgical History: other - trach Pertinent Family History: none Social History: Denies: smoking, alcohol use, drug use Last Menstrual Period: N/A Now: No Immunizations: UTD Reviewed Nursing Documentation: PMH: Agreed; PSxH: Agreed Nursing Documentation-PMH Hx Hypertension: Yes Hx Diabetes: Yes Hx Cancer: No Hx Neurological Problems: Yes - Subarachnoid hemorrhage Hx Seizures: Yes Review of Systems All Other Systems: negative except mentioned in HPI Physical Exam Vital Signs Date Time Temp Pulse Resp B/P (MAP) Pulse Ox O2 Delivery O2 Flow Rate FiO2 11/15/17 23:27 99.0 116 21 179/63 95 Room Air 99.0 Sp02 EP Interpretation: reviewed, normal General Appearance: normal inspection, well appearing, no apparent distress, alert, GCS 15, non-toxic Head: normocephalic, atraumatic Eyes: bilateral eye PERRL, bilateral eye EOMI ENT: normal ENT inspection, hearing grossly normal, normal pharynx, no angioedema, normal voice, TMs + canals normal, uvula midline, moist mucus membranes Neck: normal inspection, full range of motion, supple, thyroid normal, no meningismus, no bony tend Respiratory: normal inspection, lungs clear, normal breath sounds, no rhonchi, no respiratory distress, no retraction, no accessory muscle use, no wheezing, speaking full sentences Cardiovascular #1: regular rate, rhythm, no edema, no JVD, normal capillary refill Gastrointestinal: normal inspection, normal bowel sounds, non tender, soft, no mass, no peritonitis, non-distended, no guarding, no hernia, no pulsatile mass Genitourinary: no CVA tenderness Musculoskeletal: normal inspection, back normal, normal range of motion, no calf tenderness, pelvis stable, Isacc's Sign negative Neurologic: normal inspection, alert, oriented x3, responsive, jacker feeder III-XII nml as tested, motor strength/tone normal, cerebellar normal, normal gait, speech normal Psychiatric: normal inspection, judgement/insight normal, mood/affect normal, no suicidal/homicidal ideation, no delusions Skin: normal inspection, normal color, no rash Lymphatic: normal inspection, no adenopathy Medical Decision Making Diagnostic Impression: Primary Impression: Dyspnea Qualified Codes: R06.00 - Dyspnea, unspecified Additional Impressions: Sepsis Qualified Codes: A41.9 - Sepsis, unspecified organism Pneumonia Qualified Codes: J18.1 - Lobar pneumonia, unspecified organism ER Course Initial vital signs stable, developed fever while in ER Located leukocytosis Sepsis criteria met, likely pneumonia Blood cultures pending, empiric antibiotics given IVF bolus held as unknown cardiac contractility, EF Tylenol given Lactate pending Endorsed to Dr. Catherine for telemetry admission as previously admitting doctor EKG Diagnostic Results Rate: tachycardiac Rhythm: NSR ST Segments: no acute changes ASA given to the pt in ED: No Rhythm Strip Diag. Results EP Interpretation: yes Rate: 105 Rhythm: NSR, no PVC's, no ectopy Chest X-Ray Diagnostic Results Chest X-Ray Diagnostic Results : Chest X-Ray Ordered: Yes Indication: Shortness of Breath EP Interpretation: Yes Interpretation: no pneumothorax, other - Cardiomegaly, right sided infiltrate Last Vital Signs Date Time Temp Pulse Resp B/P (MAP) Pulse Ox O2 Delivery O2 Flow Rate FiO2 11/15/17 23:27 99.0 116 21 179/63 95 Room Air 99.0 Status: improving Impresion: Lobar Pneumonia, remains afebrile Chronic seizure disorder with breakthrough seizures. Hypertension. 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 Hyperlipidemia. Moderate pulmonary hypertension. Diabetes mellitus. Plan: Continue current antibiotics and [employer] medications Oxygen for O2 sats 92-98% Critical Care - Objective Last 24 Hour Vital Signs Date Time Temp Pulse Resp B/P (MAP) Pulse Ox O2 Delivery O2 Flow Rate FiO2 11/19/17 23:12 85 18 99 Nasal Cannula 1.0 24 11/19/17 22:58 85 16 96 Nasal Cannula 1.0 24 11/19/17 20:00 98.6 101 20 148/56 97 98.6 11/19/17 19:19 87 16 99 Nasal Cannula 1.0 24 11/19/17 19:05 Nasal Cannula 1.0 24 11/19/17 19:05 87 16 95 Nasal Cannula 1.0 24 11/19/17 19:03 95 Nasal Cannula 1.0 24 11/19/17 16:00 81 16 100 Nasal Cannula 1.0 24 11/19/17 15:59 83 16 99 Nasal Cannula 1.0 11/19/17 15:50 98.7 86 20 144/97 96 Nasal Cannula 2.0 98.7 11/19/17 12:00 98.6 63 18 130/82 98 Nasal Cannula 2.0 98.6 11/19/17 11:29 Nasal Cannula 11/19/17 11:29 Nasal Cannula 11/19/17 09:02 145/62 11/19/17 08:00 98.4 88 19 145/62 93 Nasal Cannula 2.0 98.4 11/19/17 07:20 Nasal Cannula 11/19/17 07:20 Nasal Cannula 11/19/17 07:20 Nasal Cannula 11/19/17 04:00 96.7 79 18 132/68 97 Nasal Cannula 2.0 96.7 11/19/17 03:53 80 16 98 Nasal Cannula 1.0 11/19/17 03:43 78 16 97 Nasal Cannula 1.0 11/19/17 00:00 98.0 86 18 139/63 98 Nasal Cannula 2.0 98.0 11/18/17 23:55 83 16 98 Nasal Cannula 1.0 11/18/17 23:45 81 18 96 Nasal Cannula 1.0 24 Critical Care - Subjective ROS Limited/Unobtainable: Yes Condition: improving IV Access: peripheral EKG Rhythm: Sinus Rhythm FI02: 24 Sputum Amount: None I&O: Intake and Output 11/18/17 11/19/17 19:00 07:00 Intake Total 377 ml 661 ml Balance 377 ml 661 ml Intake Oral 352 ml 236 ml IV Total 25 ml 425 ml # Voids 1 2 Myles Pierce M.D. Nov 19, 2017 23:20
[2017-11-20] VITALS: BP 140/56
[2017-11-20] MEDS: Albuterol ud Inhalation HHN SCH ×6 (02:44→23:32)
[2017-11-20 04:00] VITALS: BP 124/57
[2017-11-20] MEDS: Heparin 5000 units/ml inj SUBQ SCH ×3 (06:00→20:52)
[2017-11-20 08:00] VITALS: BP 136/56
[2017-11-20] MEDS: Aspirin Baby 81mg ORAL SCH (08:38)
[2017-11-20] MEDS: Lisinopril 10mg tab ORAL SCH (08:38)
[2017-11-20 12:42] VITALS: BP 107/59
--- NOTE | 2017-11-20 13:07 | Internal Med Progress Note ---
Subjective Date of Service: Nov 20, 2017 Physician Name Richard Celeste Attending Physician Christian Catherine MD Current Medications Medications (Trade) Dose Ordered Sig/Xander Route PRN Reason Start Time Stop Time Status Last Admin Dose Admin Acetaminophen (Tylenol) 650 mg Q6H PRN ORAL Mild Pain/Temp > 100.5 11/19/17 09:00 12/16/17 08:59 Acetaminophen/ Hydrocodone Bitart ([place] 5/325) 1 tab Q6H PRN ORAL Moderate Pain (Pain Scale 4-6) 11/19/17 09:00 11/23/17 08:59 Albuterol Sulfate (Proventil) 2.5 mg Q4HRT HHN 11/19/17 11:00 11/21/17 14:59 11/20/17 10:49 Aspirin (ASA) 81 mg DAILY ORAL 11/19/17 09:00 12/16/17 08:59 11/20/17 08:38 Atorvastatin Calcium (Lipitor) 80 mg BEDTIME ORAL 11/19/17 21:00 12/16/17 20:59 11/19/17 21:05 Dextrose (Dextrose 50%) STAT PRN IV Hypoglycemia 11/19/17 09:00 12/19/17 08:59 Guaifenesin/ Codeine Phosphate (Robitussin with codeine) 5 ml Q6H PRN ORAL For Cough 11/19/17 14:00 12/19/17 13:59 11/19/17 19:58 Heparin Sodium (Porcine) (Heparin 5000 units/ml) 5,000 units EVERY 8 HOURS SUBQ 11/19/17 14:00 12/16/17 13:59 Levetiracetam (Keppra) 1,500 mg Q12HR ORAL 11/19/17 09:00 12/16/17 08:59 11/20/17 08:38 Lisinopril (Zestril) 10 mg DAILY ORAL 11/19/17 09:00 12/16/17 08:59 11/20/17 08:38 Ondansetron HCl (Zofran) 4 mg Q4H PRN IVP Nausea & Vomiting 11/19/17 09:00 12/16/17 08:59 Piperacillin Sod/ Tazobactam Sod 3.375 gm/Dextrose 100 ml @ 25 mls/hr Q8HR@0200,1000,1800 IV 11/19/17 10:00 11/23/17 09:59 11/20/17 10:19 Vancomycin HCl (Vanco rx to dose) 1 ea DAILYPRN PRN MISC Per rx protocol 11/19/17 08:30 12/19/17 08:29 Vancomycin/Sodium Chloride 250 ml @ 166.667 mls/hr Q12H IVPB 11/19/17 12:00 11/23/17 11:59 11/19/17 23:31 Allergies: Coded Allergies: No Known Allergies (Unverified , 01/14/17) ROS Limited/Unobtainable: No Constitutional: Reports: no symptoms HEENT: Reports: no symptoms Cardiovascular: Reports: no symptoms Respiratory: Reports: shortness of breath Gastrointestinal/Abdominal: Reports: no symptoms Genitourinary: Reports: no symptoms Neurologic/Psychiatric: Reports: no symptoms Subjective 57 YO F admitted with shortness of breath. Now pneumonia. Cover for Int Med- Dr Catherine. Tolerating nasal canula Objective Last Vital Signs Date Time Temp Pulse Resp B/P (MAP) Pulse Ox O2 Delivery O2 Flow Rate FiO2 11/20/17 12:42 97.9 79 17 107/59 Nasal Cannula 97.9 11/20/17 11:08 99 1.0 24 Intake and Output 11/19/17 11/20/17 19:00 07:00 Intake Total 480 ml Balance 480 ml Intake Oral 480 ml # Voids 1 2 Objective General Appearance: WD/WN, alert, mild distress EENT: PERRL/EOMI, normal ENT inspection Neck: non-tender, normal alignment, supple, normal inspection Cardiovascular: normal peripheral pulses, normal rate, regular rhythm, no gallop/murmur, no JVD Respiratory/Chest: chest wall non-tender, respiratory distress, crackles/rales , rhonchi - bilaterally, expiratory wheezing Abdomen: normal bowel sounds, non tender, soft, no organomegaly, no mass Extremities: normal range of motion, non-tender Neurologic: opener tender II-XII grossly normal, no motor/sensory deficits Skin: normal pigmentation, warm/dry Assessment/Plan Problem List: (1) Subarachnoid hemorrhage Assessment & Plan: S/P craniotomy (2) Fever Assessment & Plan: Resolved (3) Leukocytosis (4) Pneumonia Assessment & Plan: Continue zosyn and vanco. See pulmonary note. (5) Seizure disorder Assessment & Plan: Continue keppra (6) HTN (hypertension) Assessment & Plan: Continue lisinopril (7) Hypercholesteremia Assessment & Plan: Continue lipitor Assessment/Plan Discharge planning RICHARD CELESTE Nov 20, 2017 13:07
[2017-11-20] MEDS: Vancomycin 750mg/NS 250ml 250 ML IVPB SCH (14:33)
[2017-11-20 15:54] VITALS: BP 132/52
[2017-11-20 20:00] VITALS: BP 121/57
[2017-11-20] MEDS: Atorvastatin 80mg tab ORAL SCH (20:53)
--- NOTE | 2017-11-20 23:48 | Pulmonolgy Critical Care Note ---
Critical Care - Asmt/Plan Assessment/Plan: HPI 57-year-old female with 2-3 days of productive cough, increased sputum production and shortness of breath Patient's daughter states that her doctor recently took her off home oxygen, she had previously been on 2 L. Patient should continue on her Home Oxygen at 2L/min Feels better, no new complaints, no seizures Past medical history of seizure disorder, craniotomy, secondary to ruptured aneurysm with subarachnoid hemorrhage, hypertension, diabetes, and hyperlipidemia, Previous admission with seizure 2017 requiring admission to the intensive care unit, trequired Ventilator support. Allergies: Coded Allergies: No Known Allergies (Unverified , 01/14/17) Patient History Past Medical History: other - see HPI Past Surgical History: other - trach Pertinent Family History: none Social History: Denies: smoking, alcohol use, drug use Last Menstrual Period: N/A Now: No Immunizations: UTD Reviewed Nursing Documentation: PMH: Agreed; PSxH: Agreed Nursing Documentation-PMH Hx Hypertension: Yes Hx Diabetes: Yes Hx Cancer: No Hx Neurological Problems: Yes - Subarachnoid hemorrhage Hx Seizures: Yes Review of Systems All Other Systems: negative except mentioned in HPI Physical Exam Vital Signs Date Time Temp Pulse Resp B/P (MAP) Pulse Ox O2 Delivery O2 Flow Rate FiO2 11/15/17 23:27 99.0 116 21 179/63 95 Room Air 99.0 Sp02 EP Interpretation: reviewed, normal General Appearance: normal inspection, well appearing, no apparent distress, alert, GCS 15, non-toxic Head: normocephalic, atraumatic Eyes: bilateral eye PERRL, bilateral eye EOMI ENT: normal ENT inspection, hearing grossly normal, normal pharynx, no angioedema, normal voice, TMs + canals normal, uvula midline, moist mucus membranes Neck: normal inspection, full range of motion, supple, thyroid normal, no meningismus, no bony tend Respiratory: normal inspection, lungs clear, normal breath sounds, no rhonchi, no respiratory distress, no retraction, no accessory muscle use, no wheezing, speaking full sentences Cardiovascular #1: regular rate, rhythm, no edema, no JVD, normal capillary refill Gastrointestinal: normal inspection, normal bowel sounds, non tender, soft, no mass, no peritonitis, non-distended, no guarding, no hernia, no pulsatile mass Genitourinary: no CVA tenderness Musculoskeletal: normal inspection, back normal, normal range of motion, no calf tenderness, pelvis stable, Isacc's Sign negative Neurologic: normal inspection, alert, oriented x3, responsive, 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, motor strength/tone normal, cerebellar normal, normal gait, speech normal Psychiatric: normal inspection, judgement/insight normal, mood/affect normal, no suicidal/homicidal ideation, no delusions Skin: normal inspection, normal color, no rash Lymphatic: normal inspection, no adenopathy Medical Decision Making Diagnostic Impression: Primary Impression: Dyspnea Qualified Codes: R06.00 - Dyspnea, unspecified Additional Impressions: Sepsis Qualified Codes: A41.9 - Sepsis, unspecified organism Pneumonia Qualified Codes: J18.1 - Lobar pneumonia, unspecified organism ER Course Initial vital signs stable, developed fever while in ER Located leukocytosis Sepsis criteria met, likely pneumonia Blood cultures pending, empiric antibiotics given IVF bolus held as unknown cardiac contractility, EF Tylenol given Lactate pending Endorsed to Dr. Catherine for telemetry admission as previously admitting doctor EKG Diagnostic Results Rate: tachycardiac Rhythm: NSR ST Segments: no acute changes ASA given to the pt in ED: No Rhythm Strip Diag. Results EP Interpretation: yes Rate: 105 Rhythm: NSR, no PVC's, no ectopy Chest X-Ray Diagnostic Results Chest X-Ray Diagnostic Results : Chest X-Ray Ordered: Yes Indication: Shortness of Breath EP Interpretation: Yes Interpretation: no pneumothorax, other - Cardiomegaly, right sided infiltrate Last Vital Signs Date Time Temp Pulse Resp B/P (MAP) Pulse Ox O2 Delivery O2 Flow Rate FiO2 11/15/17 23:27 99.0 116 21 179/63 95 Room Air 99.0 Status: improving Impresion: Lobar Pneumonia, remains afebrile Chronic seizure disorder with breakthrough seizures. Hypertension. 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 Hyperlipidemia. Moderate pulmonary hypertension. Diabetes mellitus. 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5 97.8 11/20/17 15:17 77 18 99 Nasal Cannula 1.0 11/20/17 15:06 81 16 97 Nasal Cannula 1.0 11/20/17 12:42 97.9 79 17 107/59 Nasal Cannula 97.9 11/20/17 11:08 72 16 99 Nasal Cannula 1.0 11/20/17 10:54 86 18 98 Nasal Cannula 1.0 11/20/17 08:38 136/56 11/20/17 08:00 98.2 85 20 136/56 97 Nasal Cannula 2.0 98.2 11/20/17 07:32 75 18 98 Nasal Cannula 1.0 11/20/17 07:26 95 Nasal Cannula 1.0 11/20/17 07:26 85 18 Nasal Cannula 1.0 11/20/17 07:26 Nasal Cannula 1.0 11/20/17 07:19 85 18 97 Nasal Cannula 1.0 11/20/17 04:00 Nasal Cannula 2.0 11/20/17 04:00 98.0 89 20 124/57 97 98.0 11/20/17 02:53 82 16 99 Nasal Cannula 1.0 11/20/17 02:44 82 16 96 Nasal Cannula 1.0 11/20/17 00:00 97.9 85 20 140/56 100 97.9 11/20/17 00:00 Nasal Cannula 2.0 Critical Care - Subjective ROS Limited/Unobtainable: Yes Condition: improving IV Access: peripheral EKG Rhythm: Sinus Rhythm FI02: 28 Sputum Amount: None I&O: Intake and Output 11/19/17 11/20/17 19:00 07:00 Intake Total 480 ml Balance 480 ml Intake Oral 480 ml # Voids 1 2 Myles Pierce M.D. Nov 20, 2017 23:48
[2017-11-21] VITALS (7 sets, daily range): BP systolic 123–159; BP diastolic 52–91
[2017-11-21] MEDS: Vancomycin 750mg/NS 250ml 250 ML IVPB SCH (00:24)
[2017-11-21] MEDS: Albuterol ud Inhalation HHN SCH ×3 (02:41→11:06)
[2017-11-21] MEDS: Heparin 5000 units/ml inj SUBQ SCH ×3 (05:57→22:00)
[2017-11-21 07:15] LABS: ANION GAP 6 mmol/L (5-15); BLOOD UREA NITROGEN 21 mg/dL (7-18); CALCIUM 8.8 MG/DL (8.5-10.1); CARBON DIOXIDE 32 MMOL/L (21-32); CHLORIDE 107 MMOL/L (98-107); CREATININE 0.9 MG/DL (0.55-1.30); POTASSIUM 4.2 MMOL/L (3.5-5.1); SODIUM 144 MMOL/L (136-145)
[2017-11-21 07:26] LABS: BASOPHILS % (AUTO) 0.8 % (0.0-2.0); HEMATOCRIT 31.3 % (37.0-47.0); HEMOGLOBIN 10.9 G/DL (12.0-16.0); LYMPHOCYTES % (AUTO) 23.7 % (20.0-45.0); MEAN CORPUSCULAR VOLUME 90 FL (80-99); MONOCYTES % (AUTO) 5.5 % (1.0-10.0); PLATELET COUNT 424 K/UL (150-450); RED BLOOD COUNT 3.49 M/UL (4.20-5.40); RED CELL DISTRIBUTION WIDTH 11.7 % (11.6-14.8); WHITE BLOOD COUNT 13.7 K/UL (4.8-10.8)
[2017-11-21] MEDS: Aspirin Baby 81mg ORAL SCH (09:31)
[2017-11-21] MEDS: Lisinopril 10mg tab ORAL SCH (09:31)
[2017-11-21] MEDS ORDERED: Oseltamivir 75mg cap ORAL SCH (12:58)
[2017-11-21] MEDS ORDERED: LEVAQUIN500 MG ORAL (19:17)
[2017-11-21] MEDS ORDERED: TAMIFLU75 MG ORAL (19:17)
--- NOTE | 2017-11-21 19:21 | Discharge Summary ---
Discharge Summary Hospital Course Date of Admission Nov 16, 2017 at 02:10 Date of Discharge Admitting Diagnosis dyspnea HPI Loulou Rubin is a 57 year old female who was admitted on Nov 16, 2017 at 02:10 for Dyspnea Hospital Course job # [id number] Discharge Discharge Disposition Patient was discharged to Christian Catherine MD Nov 21, 2017 19:21
[2017-11-21] MEDS: Atorvastatin 80mg tab ORAL SCH (20:30)
[2017-11-21] MEDS ORDERED: Tubing IV Secondary IV ONE (20:59)
--- NOTE | 2017-11-22 05:32 | Discharge Summary ---
DATE OF ADMISSION: 11/16/2017 DATE OF DISCHARGE: 11/21/2017 HISTORY OF PRESENT ILLNESS: This is a 57-year-old female with past medical history significant for seizure disorder, hypertension, subdural hematoma due to the ruptured aneurysm, status post craniotomy in 2016, who presented to the hospital complaining about productive cough and sore throat. Shortly after initial evaluation, the patient was admitted to the hospital for possible pneumonia and leukocytosis. Throughout the hospital course, the patient was followed by Dr. Myles Pierce. The patient's status improved on broad-spectrum antibiotics with Zosyn and vancomycin. Subsequently, influenza culture came back to be positive and the patient started on Tamiflu and is being discharged home on Levaquin and Tamiflu as outpatient. FINAL DIAGNOSES: 1. Pneumonia. 2. History of subdural hematoma, status post craniotomy. 3. Leukocytosis. 4. Seizure disorder. 5. Hypertension. 6. Dyslipidemia. MEDICATIONS ON DISCHARGE: Continue discharge medication list. ACTIVITY: As tolerated. DIET: Would be cardiac diet. The patient will be followed up with the primary doctor as outpatient. Christian Catherine M.D. DR: DUNIA JOB#: [id number] CC:
== END 2017-11-21 21:00 | disposition home or self-care (01) | DRG 720 ==
LOC: EMR 23:55 → EDBEDREQ 11-16 01:46 → 2E 11-16 02:10 → 4E 11-19 08:38
DX: A41.9 Sepsis, unspecified organism (principal); N17.0 Acute kidney failure with tubular necrosis; G92 Toxic encephalopathy; J18.9 Pneumonia, unspecified organism; E83.42 Hypomagnesemia; I27.20 Pulmonary hypertension, unspecified; E11.8 Type 2 diabetes mellitus with unspecified complications; I10 Essential (primary) hypertension; G40.909 Epilepsy, unspecified, not intractable, without status epilepticus; E78.5 Hyperlipidemia, unspecified; D64.9 Anemia, unspecified; E87.6 Hypokalemia; J02.9 Acute pharyngitis, unspecified; R65.20 Severe sepsis without septic shock; Z79.899 Other long term (current) drug therapy; Z86.73 Personal history of transient ischemic attack (TIA), and cerebral infarction without residual deficits
CPT/HCPCS: 36415; 71045; 71046; 80048; 80053; 80202; 80299; 82550; 82553; 83605; 83735; 83880; 84100; 84484; 85007; 85025; 86171; 86710; 87040; 93005; 94640; 94664; 94760; 99285